=== PATIENT | female | born 1955 | race Caucasian/White ===

== ENCOUNTER 2023-11-18 09:43 | Outpatient (OUT) | payer MEDICARE, OTHER, SELFPAY ==
--- NOTE | 2023-11-18 09:53 | MR_ITS ---
[address] [address] Patient Name: DIANNA VEE MRN: [facility]:[id number] date: 1955 Sex: F Assigned Patient Location: MRI Current Patient Location: Accession/Order Number: [id number] Exam Date: 11/18/2023 10:00 Report Date: 11/19/2023 10:33 At the request of: SHELLI ALFARO Procedure: MR lumbar spine wo con EXAM: MR lumbar spine wo con CLINICAL INDICATION: Lumbar Radiculopathy M54.16 COMPARISON: CT abdomen/pelvis 05/15/2021. TECHNIQUE/PROTOCOL: Noncontrast lumbar spine MR protocol (Sagittal T1, T2, STIR and axial T1, T2 sequences). FINDINGS: Segmentation: Normal. Conus: Terminates at L1-L2. Spinal Cord and Cauda Equina: Normal. Epidural Hematoma: None. Alignment: Normal anterior to posterior alignment. Slight dextroconvex curvature with apex around L2-L3 and slight levoconvex curvature at L3-L4 could relate at least in part to patient positioning. Marrow Signal: Slight degenerative reactive marrow endplate changes at L3-L4 and L5-S1. Vertebral hemangiomas at T11 and T12. Vertebral Body Heights: Remote mild superior endplate deformities of L1 and L5 with Schmorl's nodes. Remainder of the vertebral body heights are maintained. Sacroiliac Joints: Grossly normal given only partially visualized. Paraspinal Soft Tissues: Normal. Retroperitoneal Soft Tissues: No acute abnormalities. Spondylotic Changes: Multilevel spondylotic changes include diffuse disc desiccation and varying degrees of intervertebral disc height loss, osteophytic ridging, and facet/ligamentum flavum hypertrophy. T12-L1: No disc bulge or herniation. No high-grade spinal canal or foraminal narrowing. L1-L2: No disc bulge. No high-grade spinal canal narrowing. Small right foraminal disc protrusion results in mild right foraminal narrowing. No high-grade spinal canal or left foraminal narrowing. L2-L3: Slight disc bulge indents the ventral thecal sac. No high-grade spinal canal narrowing. Mild bilateral foraminal narrowing. Mild bilateral facet/ligamentum flavum hypertrophy. L3-L4: Slight right lateral recess disc protrusion minimally indents the right ventral thecal sac. No high-grade spinal canal narrowing. Mild bilateral foraminal narrowing. Mild bilateral facet/ligamentum flavum hypertrophy. L4-L5: No disc bulge or herniation. No high-grade spinal canal narrowing. Moderate right and mild left foraminal narrowing. Mild bilateral facet/ligamentum flavum hypertrophy. L5-S1: Slight central disc protrusion indents the ventral thecal sac. No high-grade spinal canal narrowing. Moderate right and mild left foraminal narrowing. Disc material possibly contacts the transiting right S1 nerve root. Mild bilateral facet/ligamentum flavum hypertrophy. MR/MR lumbar spine wo con IMPRESSION: 1. Multilevel spondylotic changes without high-grade spinal canal or foraminal narrowing at any lumbar level. 2. Foraminal narrowing is moderate on the right at L4-L5 and L5-S1. 3. Slight central disc protrusion at L5-S1 possibly contacts the transiting right S1 nerve root. Electronically authenticated by: JANELLE REILLY Date: 11/19/2023 10:33
== END 2023-11-18 09:44 | disposition home or self-care (01) ==
LOC: MRI 09:43
PROVIDERS: PCP Family Medicine; Visit Provider Anesthesiology Pain Medicine
DX: M54.16 Radiculopathy, lumbar region (principal); M47.816 Spondylosis without myelopathy or radiculopathy, lumbar region
CPT/HCPCS: 72148

== ENCOUNTER 2024-05-04 08:25 | Outpatient (OUT) | payer MEDICARE, OTHER, SELFPAY ==
--- NOTE | 2024-05-04 08:29 | MR_ITS ---
[address] [address] Patient Name: DIANNA VEE MRN: [id number] date: 1955 Sex: F Assigned Patient Location: MRI Current Patient Location: Accession/Order Number: [id number] Exam Date: 05/04/2024 08:48 Report Date: 05/05/2024 10:54 At the request of: ZANE SIDDIQUI Procedure: MR cervical spine wo con EXAM: MR cervical spine wo con HISTORY: chronic neck pain COMPARISON: None. TECHNIQUE: Multiplanar multisequence MR imaging of the cervical spine was performed without intravenous contrast. FINDINGS: Alignment: Straightening of the normal cervical lordosis. No substantial subluxation. Vertebrae: Vertebral body heights are maintained. No marrow signal abnormality to suggest neoplasm. Spinal cord: Spinal cord demonstrates normal signal and contour. Craniocervical junction: No focal abnormality. Degenerative changes: C2-C3: Moderate left uncovertebral arthropathy. Mild left facet arthropathy. Small posterior disc osteophyte complex. Moderate canal stenosis. Mild bilateral foraminal stenosis. C3-C4: Moderate disc height loss. Small posterior disc osteophyte complex with mild to moderate (right uncovertebral arthropathy. Moderate left facet arthropathy. Moderate canal stenosis. Moderate left greater than right foraminal stenosis. C4-C5: Moderate disc height loss. Small posterior disc osteophyte complex. Moderate bilateral vertebral arthropathy. Mild facet arthropathy. Moderate canal stenosis. Moderate to advanced bilateral foraminal stenosis. C5-C6: Moderate to advanced bilateral vertebral arthropathy. Mild left facet arthropathy. Mild canal stenosis. Moderate to advanced right greater than left foraminal stenosis C6-C7: Moderate disc height loss. Posterior disc osteophyte complex. Moderate bilateral uncovertebral arthropathy. Mild to moderate canal stenosis. Moderate left and mild right foraminal stenosis. C7-T1: Small posterior disc osteophyte complex. Moderate right greater than left uncovertebral arthropathy. Mild canal stenosis. Moderate left and mild right foraminal stenosis. Visualized portion of the thoracic spine: No high grade canal stenosis. Additional Comments: The visualized soft tissues of the neck are grossly unremarkable. MR/MR cervical spine wo con IMPRESSION: 1. No abnormal spinal cord signal. 2. Moderate degenerative change of the cervical spine as described above. Electronically authenticated by: ANNA HAYES Date: 05/05/2024 10:54
--- OUTSIDE RECORDS SUMMARY | 2024-05-04 08:45 | XMS_ITS | CCD ---
Author Organization [facility] CliniSydc Care Team Providers Care Bulk Station Operator Name Role Phone Fadumo Nguyen Unavailable Rhett Poolbrandi Unavailable Abiola Pace MD Primary Care Provider [phone] Lunacarlos Varinder Unavailable Tahira Mendoza Unavailable Ciera Noguera Unavailable Lg Costa Unavailable DR ABIOLA PACE Primary Care Unavailable PAY ., DR PELAEZ Admitting Unavailable PAY ., DR PELAEZ Attending Unavailable ZIJUSTINA, DR AYLIN Valenzuela Consulting Unavailable PAY ., DR PELAEZ Consulting Unavailable Tahira Mendoza Attending Unavailable Tahira Mendoza Admitting [facility] Abiola Pace MD Primary Care Provider Abiola Paec MD Primary Care Provider [phone] DIANA BENJAMIN Attending Unavailable KATELYNN [facility] Primary [facility] Unavailable SELF, SELF Referring Unavailable DIANA BENJAMIN Attending Unavailable WONDERLY [facility] Primary Care Unavailable SELF, SELF Referring Unavailable Abiola Pace MD Unavailable Abiola Pace MD Primary Care Provider WONDERLYABIOLA Referring Unavailable WONDERLY, ABIOAL Easley Attending Unavailable WONDERLY, ABIOLA Easley Attending Unavailable WONDERLY, ABIOLA Easley Referring Unavailable WONDERLY, ABIOLA Easley Referring Unavailable WONDERLY, ABIOLA Easley Attending Unavailable WONDERLY, ABIOLA Easley Attending Unavailable WONDERLY, ABIOLA Easley Attending Unavailable NONI GARCIA Attending Unavailable MICHELLE DOHERTY Attending Unavailable PUMP, GAURI Attending Unavailable PUMP, GAURI Referring Unavailable PUMP, GAURI Attending Unavailable SERVICE, JOBST Referring Unavailable WONDERLY, ABIOLA Primary Care Unavailable NIWILBER, SESAR Bauer Attending Unavailable WONDERLY, ABIOLA Referring Unavailable WONDERLY, ABIOLA Primary Care Unavailable SERVICE, JOBST Referring Unavailable WONDERLY, ABIOLA Primary Care Unavailable SERVICE, JOBST Referring Unavailable WONDERLY, ABIOLA Primary Care Unavailable HOLMAN, LEIF E Admitting Unavailable HOLMAN, LEIF E Attending Unavailable WONDERLY, ABIOLA Referring Unavailable WONDERLY, ABIOLA Primary Care Unavailable HOLMAN, LEIF E Attending Unavailable HOLMAN, LEIF E Referring Unavailable WONDERLY, ABIOLA Primary Care Unavailable SERVICE, JOBST Referring Unavailable WONDERLY, ABIOLA Primary Care Unavailable SERVICE, JOBST Referring Unavailable WONDERLY, ABIOLA Primary Care Unavailable EDSON ROWE Attending Unavailable WONDERLY, ABIOLA Primary Care Unavailable SERVICE, JOBST Referring Unavailable WONDERLY, ABIOLA Primary Care Unavailable NIWILBER, SESAR Bauer Attending Unavailable WONDERLY, ABIOLA Referring Unavailable WONDERLY, ABIOLA Primary Care Unavailable SERVICE, JOBST Referring Unavailable WONDERLY, ABIOLA Primary Care Unavailable SERVICE, JOBST Referring Unavailable WONDERLY, ABIOLA Primary Care Unavailable SERVICE, JOBST Referring Unavailable WONDERLY, ABIOLA Primary Care Unavailable HOLMAN, LEIF E Admitting Unavailable HOLMAN, LEIF E Attending Unavailable WONDERLY, ABIOLA Referring Unavailable WONDERLY, ABIOLA Primary Care Unavailable NIENBERG, SESAR Bauer Attending Unavailable WONDERLY, ABIOLA Referring Unavailable WONDERLY, ABIOLA Primary Care Unavailable WONDERLY, ABIOLA Referring Unavailable WONDERLY, ABIOLA Primary Care Unavailable SERVICE, JOBST Referring Unavailable WONDERLY, ABIOLA Primary Care Unavailable MOISES TRACY Attending Unavailable WONDERLY, ABIOLA Referring Unavailable WONDERLY, ABIOLA Primary Care Unavailable HOLMAN, LEIF E Attending Unavailable HOLMAN, LEIF E Referring Unavailable WONDERLY, ABIOLA Primary Care Unavailable HOLMAN, LEIF E Admitting Unavailable HOLMAN, LEIF E Attending Unavailable WONDERLY, ABIOLA Referring Unavailable WONDERLY, ABIOLA Primary Care Unavailable NIWILBER, SESAR Bauer Attending Unavailable WONDERLY, ABIOLA Referring Unavailable WONDERLY, ABIOLA Primary Care Unavailable SERVICE, JOBST Referring Unavailable WONDERLY, ABIOLA Primary Care Unavailable SERVICE, JOBST Referring Unavailable WONDERLY, ABIOLA Primary Care Unavailable HOLMAN, LEIF E Admitting Unavailable HOLMAN, LEIF E Attending Unavailable WONDERLY, ABIOLA Referring Unavailable WONDERLY, ABIOLA Primary Care Unavailable HOLMAN, LEIF E Attending Unavailable HOLMAN, LEIF E Referring Unavailable WONDERLY, ABIOLA Primary Care Unavailable FABIENNE SOUZA Attending Unavailable WONDERLY, ABIOAL Primary Care Unavailable SERVICE, JOBST Referring Unavailable WONDERLY, ABIOLA Primary Care Unavailable HOLMAN, LEIF E Attending Unavailable HOLMAN, LEIF E Referring Unavailable WONDERLY, ABIOLA Primary Care Unavailable HOLMAN, LEIF E Attending Unavailable HOLMAN, LEIF E Referring Unavailable WONDERLY, ABIOLA Primary Care Unavailable ABIGAIL LOPEZ Attending Unavailable WONDERLY, ABIOLA Primary Care Unavailable SERVICE, JOBST Referring Unavailable WONDERLY, ABIOLA Primary Care Unavailable NIENBERG, SESAR S Attending Unavailable WONDERLY, ABIOLA Referring Unavailable WONDERLY, ABIOLA Primary Care Unavailable NIENBERG, SESAR S Attending Unavailable WONDERLY, ABIOLA Referring Unavailable WONDERLY, ABIOLA Primary Care Unavailable SERVICE, JOBST Referring Unavailable WONDERLY, ABIOLA Primary Care Unavailable SERVICE, JOBST Referring Unavailable WONDERLY, ABIOLA Primary Care Unavailable HOLMAN, LEIF E Admitting Unavailable HOLMAN, LEIF E Attending Unavailable WONDERLY, ABIOLA Referring Unavailable WONDERLY, ABIOLA Primary Care Unavailable HOLMAN, LEIF E Attending Unavailable HOLMAN, LEIF E Referring Unavailable WONDERLY, ABIOLA Primary Care Unavailable ERNESTO VIDALES Attending Unavail able WONDERLY, ABIOLA Primary Care Unavailable SERVICE, JOBST Referring Unavailable WONDERLY, ABIOLA Primary Care Unavailable HOLMAN, LEIF E Attending Unavailable HOLMAN, LEIF E Referring Unavailable WONDERLY, ABIOLA Primary Care Unavailable HOLMAN, LEIF E Admitting Unavailable HOLMAN, LEIF E Attending Unavailable WONDERLY, ABIOLA Referring Unavailable WONDERLY, ABIOLA Primary Care Unavailable SERVICE, JOBST Referring Unavailable WONDERLY, ABIOLA Primary Care Unavailable NIENBERG, SESAR S Attending Unavailable WONDERLY, ABIOLA Referring Unavailable WONDERLY, ABIOLA Primary Care Unavailable PUMP, GAURI L Referring Unavailable WONDERLY, ABIOLA Primary Care Unavailable Allergies Allergy Classification Reported Allergen(s) Allergy Type Date of Onset Reaction(s) Facility (14 sources) Acetaminophen / HYDROcodone Drug Allergy Unknown [facility] Other (14 sources) atorvastatin Drug Allergy Unknown [facility] Other (20 sources) Cephalexin; Translations: [CEPHALEXIN] Drug Allergy 10-14-19 14 rash, Hives [facility] Other (20 sources) colesevelam; Translations: [COLESEVELAM] [facility]-28-19 [facility] D[facility] Drug Allergy Unknown [facility] Other (20 sources) Etodolac; Translations: [ETODOLAC] Drug Allergy 10-23-19 17 Other: See Comments [facility] (7 sources) ezetimibe Drug Allergy myalgias [facility] Other (20 sources) Furosemide; Translations: [FUROSEMIDE] Drug Allergy 04-03-20 19 Itching [facility] (20 sources) gabapentin; Translations: [GABAPENTIN] Drug Allergy 10-14-19 14 Other: See Comments, Shortness Of Breath, Dyspnea [facility] (18 sources) Hmg-Coa Reductase Inhibitors (Statins) Propensity to adverse reactions 01-09-20 21 Muscle Rigidity, Other [facility] Other (20 sources) HYDROcodone; Translations: [HYDROCODONE BITARTRATE] Drug Allergy 10-14-19 14 Other: See Comments [facility] (20 sources) HYLAN G-F 20; Translations: [HYLAN G-F 20] Drug Allergy 10-28-19 23 reaction [facility] [employer] Other (20 sources) PARoxetine; Translations: [PAROXETINE] Drug Allergy 10-28-19 23 Unknown [facility] [employer] Other (14 sources) Penicillin Drug Allergy rash [facility] [employer] Other (18 sources) Penicillin V Drug Allergy 10-28-19 23 red all over [facility] [facility] [employer] Other (20 sources) Ramipril; Translations: [RAMIPRIL] Drug Allergy 10-28-19 23 myalgias [facility] [employer] Other (17 sources) Sulfamethoxazole Drug Allergy 10-28-19 23 Unknown [facility] Other (14 sources) Sulfonamides (Antibiotic) Propensity to adverse reactions Unknown [facility] [employer] Other (20 sources) topiramate; Translations: [TOPIRAMATE] Drug Allergy 10-14-19 14 Other: See Comments, Shortness Of Breath [facility] (20 sources) traMADol; Translations: [TRAMADOL] Drug Allergy 06-21-20 19 Mental Status Change [facility] Work Phone: (14 sources) Ranitidine Acid Guideman Drug allergy headache [facility] [employer] Other (14 sources) Cephalexin; Translations: [Keflex] Drug Allergy rash [facility] Repository (19 sources) Cephalexin; Translations: [CEPHALEXIN MONOHYDRATE] Drug Allergy 10-14-19 14 Other: See Comments, [facility] (19 sources) Grass pollen; Translations: [GRASS POLLEN] Drug Allergy 03-05-20 18 Other: See Comments [facility] (19 sources) Latex; Translations: [LATEX] Drug Allergy 02-09-20 18 Other: See Comments [facility] (20 sources) Mold Extract; Translations: [MOLD] Drug Allergy 12-16-19 14 Itching [facility] (19 sources) Penicillins; Translations: [PENICILLINS] Propensity to adverse reactions to drug 10-14-19 14 Other: See Inocente, [facility] (19 sources) Ragweed pollen; Translations: [RAGWEED POLLEN] Drug Allergy 03-05-20 Other: See Comments [facility] (20 sources) Sulfonamides (Antibiotic); Translations: [SULFA (SULFONAMIDE ANTIBIOTICS)] Propensity to adverse reactions to drug 10-14-19 14 Unknown [facility] (20 sources) Cat Dander; Translations: [CAT DANDER] Drug Allergy 10-28-19 17 Swelling [facility] (2 sources) colesevelam Drug Allergy [facility] Other (2 sources) black walnut pollen extract; Translations: [HTMXIEH-BBY-LEO REDUCTASE INHIBITORS] Drug Allergy 01-09-20 21 [facility] Repository (1 source) Etodolac Drug Allergy [facility] (1 source) levocetirizine Drug Allergy [facility] (1 source) Penicillin Drug Allergy [facility] Rep[facility] (1 source) Sulfonamides (Antibiotic) Drug allergy (disorder) [facility] Rep[facility] (1 source) traMADol Drug Allergy [facility] Repository (17 sources) HMG-CoA reductase inhibitor Propensity to adverse reactions to drug 01-09-20 muscle cramps [facility] (20 sources) levocetirizine; Translations: [LEVOCETIRIZINE] Drug Allergy 01-09-20 21 [facility] (20 sources) Penicillin G; Translations: [PENICILLIN G] Drug Allergy 11-05-[address] [facility] (20 sources) Pravastatin; Translations: [PRAVASTATIN] Drug Allergy 10-23-19 17 [facility] (19 sources) Acetaminophen / HYDROcodone; Translations: [HYDROCODONE-ACETAM INOPHEN] Drug Allergy 06-03-20 21 GI Disturbance, GI intolerance [facility] (19 sources) DULoxetine; Translations: [DULOXETINE HCL] Drug Allergy 10-28-19 [facility] (18 sources) raNITIdine; Translations: [RANITIDINE HCL] Drug Allergy 10-28-19 23 [facility] (4 sources) atorvastatin Drug Allergy 10-28-19 23 [facility] (1 source) Cat Hair Extract Drug Allergy 10-28-19 17 Swelling [facility] (4 sources) Codeine Drug Allergy 12-16-19 14 [facility] (4 sources) colesevelam Drug Allergy 10-28-19 23 [facility] (4 sources) Etodolac Propensity to adverse reactions to drug 11-05-19 14 [facility] (4 sources) Furosemide Drug Allergy 04-03-20 19 Itching [facility] (4 sources) Grass pollen Propensity to adverse reactions to drug 03-05-20 18 [facility] (4 sources) House dust mite Propensity to adverse reactions to drug 12-16-19 14 [facility] (4 sources) HYDROcodone Drug Allergy 10-14-19 14 [facility] (4 sources) Iodine Drug Allergy 11-07-19 14 [facility] (4 sources) Latex Propensity to adverse reactions to drug 02-09-20 18 [facility] (1 source) Penicillins Propensity to adverse reactions to drug 10-14-19 14 [facility] (4 sources) Ramipril Propensity to adverse reactions to drug 10-28-19 23 [facility] (1 source) raNITIdine Drug Allergy 10-28-19 23 [facility] (4 sources) Topiramate Propensity to adverse reactions to drug 10-14-19 14 Dyspnea [facility] (4 sources) Hylan G-F 20 Propensity to adverse reactions to drug 10-28-19 23 [facility] (3 sources) short ragweed pollen extract Drug Allergy 03-05-20 18 Other [facility] (3 sources) Cat Hair Extract Propensity to adverse reactions 10-28-19 17 Swelling [facility] Medications Current Medications Medication Drug Class(es) Dates Sig (Normalized) Sig (Original) acetaminophen 325 mg oral tablet (4 sources) Start: 07-23-2021 take 2 tablets by mouth every six hours as needed for pain acetaminophen (Tylenol) 325 MG tablet 2 tablets Orally every 6 hrs prn pain 07/23/2021 Active Comment on above: Take 2 tablets by [facility] every 6 hours as needed for pain. [id number] 200 actuat albuterol 0.09 mg/actuat metered dose inhaler (11 sources) beta2-Adrenergic Agonist Start: 08-22-2015 End: 04-28-2024 take 2 puff(s) by inhalation every four hours as needed for cough albuterol HFA 90 mcg/act inhaler 2 puffs as needed Inhalation every 4 hrs prn cough, wheeze,shortness of breath for 30 days 08/22/2015 04/28/2024 Discontinued (Med list cleanup) take 2 puff(s) by in halation every four hours as needed ProAir HFA 108 (90 Base) MCG/ACT 2 puffs as needed Inhalation every 4 hrs for 90 day(s) Active ALBUTEROL INHALA TION Inhale as instructed. 0 Active Comment on above: Inhale as instructed . Hilary Allergy 180 MG (14 sources) take 1 tablet by mouth once daily as needed Hilary Allergy 180 MG 1 tablet as needed Orally Once a day Active azelastine hydrochloride 0.137 mg/actuat metered dose nasal spray (3 sources) Histamine-1 Receptor Antagonist Start: 023 Azelastine HCl 137 MCG/SPRAY solution 02/25/2023 Active cholecalciferol 0.05 mg oral capsule (20 sources) Vitamin D Start: 024 take 1 capsule by mouth in the morning cholecalciferol (Vitamin D-3) 50 MCG (1999 UT) capsule Take 1 capsule (50 mcg) by mouth in the morning and 1 capsule (50 mcg) before bedtime. 30 capsule 08/11/2023 Active cholecalciferol, vitamin D3, 2,000 units capsule Take 3,000 Units by mouth daily. Active cholecalciferol (D2000 Ultra Strength) 50 MCG (2000 UT) capsule Take 3,000 Units by mouth daily. Active Cholecalciferol, Vitamin D3, (VITAMIN D-3) 2,000 unit cap Indications: History of DVT (deep vein thrombosis) Take by mouth. 0 Active Comment on above: Take by mouth. cimetidine 200 mg oral tablet (4 sources) Histamine-2 Receptor Antagonist Start: 4 End: 4 take 1 tablet by mouth once daily cimetidine 200 MG tablet Take 1 tablet by mouth daily. 08/12/2023 11/10/2023 Active CPAP Machine (14 sources) CPAP Machine Active docosahexaenoic acid 120 mg / eicosapentaenoic acid 180 mg oral capsule (4 sources) omega-3 (fish oi l) 1000 MG capsule 1 capsule 1 (one) time each day at the same time. Active [place]-3 Fatty Ac ids (Fish Oil) 1000 MG capsule 1 capsule. Active docusate sodium 100 mg oral capsule (10 sources) Start: 10-20-2023 take 1 capsule by mouth in the morning, then take 1 capsule by mouth at bedtime docusate sodium (COLACE) 100 mg capsule Take 1 capsule (100 mg total) by mouth in the morning and 1 capsule (100 mg total) before bedtime. 10/20/2023 Active take 1 capsule by mouth once yash ly docusate sodium (Colace) 100 MG capsule Take 100 mg by mouth Daily Active escitalopram 10 mg oral tablet (20 sources) Serotonin Reuptake Inhibitor Start: 07-22-2023 take 1 tablet by mouth in the morning escitalopram (Lexapro) 10 MG tablet Indications: Episode of recurrent major depressive disorder, unspecified depression episode severity (CMS/HCC) Take 1 tablet (10 mg) by mouth in the morning. 90 tablet 3 07/22/2023 Active take 1 tablet by mouth in the mo rning escitalopram (LEXAPRO) 20 mg tablet Take 1 tablet (20 mg total) by mouth in the morning. 0 Active ESCITALOPRAM OXA LATE (LEXAPRO ORAL) Take by mouth. 0 Active Comment on above: Take by mouth. 1 ml evolocumab 140 mg/ml auto-injector (9 sources) PCSK9 Inhibitor Start: 01-04-2024 evolocumab (REPATHA ELENA) 140 mg/mL pen injector Indications: ASCVD (arteriosclerotic cardiovascular disease) Inject 140 mg under the skin every 14 (fourteen) days. 2 mL 11 01/04/2024 Active Start: 01-04-2024 End: 04-28-2024 atha CarolynClick 140 MG/ML injection 140 mg 01/04/2024 04/28/2024 Discontinued (Allergic response) ezetimibe 10 mg oral tablet (14 sources) Dietary Cholesterol Absorption Inhibitor take 1 tablet by mouth every twenty-four hours Zetia 10 MG 1 tablet Orally Once a day Active Zetia Active hydroCHLOROthiazide 12.5 mg oral tablet (20 sources) Thiazide Diuretic Start: 07-22-2023 take 1 tablet by mouth once daily hydroCHLOROthiazide 12.5 MG tablet Take 1 tablet by mouth daily. 07/22/2023 Active take 1 tablet by eleanor th every twenty-four hours hydroCHLOROthiazide 25 mg 1 tablet in th e morning Orally Once a day Active Comment on above: Take 12.5 mg by mout h. lansoprazole 30 mg delayed release oral capsule (20 sources) Proton Pump Inhibitor Start: 08-12-19 take 1 capsule by mouth once daily as needed lansoprazole (PREVACID) 30 mg capsule Take 1 capsule (30 mg total) by mouth daily as needed. 08/12/2016 Active Comment on above: Take by mouth. latanoprost 0.05 mg/ml ophthalmic solution (20 sources) Prostaglandin Analog take 1 drop(s) into the eye(s) once daily latanoprost (XALATAN) 0.005 % ophthalmic solution Administer 1 drop to both eyes nightly. Active take 1 drop(s) into the eye(s) at bedtime latanoprost (Xalatan) 0.005 % ophthalmic solution 1 drop at bedtime. Active take 1 drop(s) into the eye(s) once daily in the evening Latanoprost 0.005 % 1 drop into affected eye in the evening Ophthalmic Once a day Active 3 ml liraglutide 6 mg/ml pen injector (1 source) GLP-1 Receptor Agonist Victoza 1 8 MG/3ML Week one- 0.6mg, Week two- 1.2mg, Week three thereafter- 1.8mg Subcutaneous Daily for 30 days Active MiraLax 17 GM/SCOOP (4 sources) take 17 g by mouth once daily MiraLax 17 GM/SCOOP as directed Orally Once a day Active montelukast 10 mg oral tablet (20 sources) Leukotriene Receptor Antagonist take 1 tablet by mouth once daily montelukast (SINGULAIR) 10 mg tablet Take 1 tablet (10 mg total) by mouth nightly. Active Montelukast Sodi um Active Comment on above: Take 10 mg by mouth daily at bedtime. mupirocin 0.02 mg/mg topical ointment (3 sources) RNA Synthetase Inhibitor Antibacterial Start: 07-04-19 End: 04-28-20 24 mupirocin (Bactroban) 2 % ointment 1 application every 12 (twelve) hours. 07/04/2021 04/28/2024 Discontinued (Med list cleanup) olopatadine 1 mg/ml ophthalmic solution (20 sources) Histamine-1 Receptor Inhibitor take 1 drop(s) into the eye(s) in the morning olopatadine (PATANOL) 0.1 % ophthalmic solution 1 drop in the morning. Active take 1 drop(s) into the eye(s) once daily as needed olopatadine (Patanol) 0.1 % ophthalmic solution 1 drop into affected eye Ophthalmic once a day prn Active Patanol Active Comment on above: 1 Drop as needed. [place] 3 1000 MG (11 sources) take 1 capsule by mouth once daily [place] 3 1000 MG 1 capsule Orally Once a day Active omega-3s/dha/epa/fish oil (OMEGA 3 ORAL) (17 sources) omega-3s/dha/epa /fish oil (OMEGA 3 ORAL) Take by mouth daily. Active omega-3s/dha/epa /fish oil (OMEGA 3 ORAL) Take by mouth daily. 0 Suspended omega-3s/dha/epa /fish oil (OMEGA 3 ORAL) Take by mouth daily. 0 Active Oral Electrolytes (SUSTAIN PO) (3 sources) Oral Electrolyte s (SUSTAIN PO) 1 (one) time each day at the same time. Active polyethylene glycol 3350 09693 mg powder for oral solution (9 sources) Osmotic Laxative polyethylene gl ycol (GLYCOLAX) 17 gram packet Take 17 g by mouth in the morning. Active polymyxin b 75667 unt/ml / trimethoprim 1 mg/ml ophthalmic solution (3 sources) Dihydrofolate Reductase Inhibitor Antibacterial, Polymyxin-class Antibacterial End: 04-28-20 take 1 drop(s) into the eye(s) every four hours trimethoprim-polymyx in b (Polytrim) ophthalmic solution Administer 1 drop into the left eye every 4 (four) hours 04/28/2024 Discontinued (Med list cleanup) predniSONE 10 mg oral tablet (5 sources) Start: 04-28-20 End: 05-10-20 take 4 tablets by mouth once daily, then take 3 tablets by mouth once daily, then take 2 tablets by mouth once daily, then take 1 tablet by mouth once daily predniSONE (Deltasone) 10 MG tablet Indications: Spondylosis of cervical spine , Chronic pain of both shoulders Take 4 tablets (40 mg) by mouth Daily for 3 days, THEN 3 tablets (30 mg) Daily for 3 days, THEN 2 tablets (20 mg) Daily for 3 days, THEN 1 tablet (10 mg) Daily for 3 days. 30 tablet 04/28/2024 05/10/2024 Active Start: 08-18-2022 Prednisone 20m g 2 daily for 5 days oral Daily for 5 days Jul, Active ProAir HFA 108 (90 Base) MCG/ACT (7 sources) take 2 puff(s) by inhalation every four hours as needed ProAir HFA 108 (90 Base) MCG/ACT 2 puffs as needed Inhalation every 4 hrs for 90 day(s) Active propylene glycol 6 mg/ml ophthalmic solution (19 sources) propylene glycoL 0.6 % drops Instill to eye. Active propylene glycol (SYSTANE BALANCE) 0.6 % drop Use 1 Drop in the right eye. 0 Active Comment on above: Use 1 Drop in the ri ght eye. propylene glycol/peg 400/PF (SYSTANE, PF, OPHT) (16 sources) propylene glycol /peg 400/PF (SYSTANE, PF, OPHT) Instill to eye. Active propylene glycol /peg 400/PF (SYSTANE, PF, OPHT) Instill to eye. 0 Suspended propylene glycol /peg 400/PF (SYSTANE, PF, OPHT) Instill to eye. 0 Active Refresh 1 % (3 sources) Refresh 1 % 1 dr op into affected eye as needed Ophthalmic 24 time(s) a day Active Refresh 1 % 1 dr op into affected eye as needed Ophthalmic 24 time(s) a day Not-Taking Sulfamethazine (11 sources) Sustain Active 60 actuat tiotropium 0.39186 mg/actuat inhalation spray (20 sources) Anticholinergic Start: 10-13-2016 take 1.25 ug by mouth once daily in the morning SPIRIVA RESPIMAT 1.25 mcg/actuation mist INHALE 2 PUFFS BY MOUTH ONCE A DAY in the morning 5 10/13/2016 Active Start: 09-23-2016 take 1.25 ug by inha lation once daily Spiriva Respimat 1.25 MCG/ACT 2 puffs Inhalation Once a day Sep, Active tiotropium (Spir nerissa Respimat) 1.25 MCG/ACT inhaler 1 (one) time each day at the same time. Active tiotropium bromi de (SPIRIVA RESPIMAT) 1.25 mcg/actuation mist Inhale 1.25 mcg as instructed. 0 Active Comment on above: Inhale 1.25 mcg as i nstructed. triamcinolone acetonide 0.055 mg/actuat metered dose nasal spray (20 sources) Corticosteroid take 2 spray(s) nasal route once daily triamcinolone (NASACORT) 55 mcg nasal inhaler Administer 2 sprays into each nostril nightly. Active triamcinolone (N asacort Allergy 24HR) 55 MCG/ACT nasal inhaler 1 (one) time each day at the same time. Active take 1 puff(s) nasal route once daily Nasacort AQ 55 MCG/ACT 1 puff in each nostril Nasally Once a day Active TRIAMCINOLONE AC ETONIDE (NASACORT NASAL) Use in the nose. 0 Active Comment on above: Use in the nose. Vitamin D3 25 MCG (1000 UT) (11 sources) take 1 tablet by mouth once daily Vitamin D3 25 MCG (1000 UT) 1 tablet Orally Once a day Active warfarin sodium 5 mg oral tablet (20 sources) Vitamin K Antagonist Start: 2 End: 4 take 1 tablet by mouth in the evening warfarin (COUMADIN) 5 mg tablet Indications: group home (current) use of anticoagulants , Pulmonary embolism, unspecified chronicity, unspecified pulmonary embolism type, unspecified whether acute cor pulmonale present ([facility]) Take 1 tablet (5 mg total) by mouth in the evening. As directed by Katerina SCHNEIDER (Medication Therapy Management).. 90 tablet 1 04/27/2024 Active Coumadin Not-Bib ing Completed/Discontinued Medications Medication Drug Class(es) Dates Sig (Normalized) Sig (Original) 0.5 ML semaglutide 0.5 MG/ML Auto-Injector [Wegovy] (7 sources) Start: 04-30-2022 Wegovy 0.25 MG/0.5ML 0.25mg once weekly for four weeks, then increase to 0.5mg once weekly for four weeks Subcutaneous once weekly for 28 days Checking to see if medication is covered under pt's insurance (aware it is unavailable at this time) Apr, Not-Taking Start: 04-30-2022 Wegovy 0.25 MG /0.5ML 0.25mg once weekly for four weeks, then increase to 0.5mg once weekly for four weeks Subcutaneous once weekly for 28 days Checking to see if medication is covered under pt's insurance (aware it is unavailable at this time) Apr, Active Adhesive Tape ([employer]) 3 X 10 -yard tape (1 source) Start: 08-06-2021 Adhesive Tape ([employer]) 3 X 10 -yard tape Apply 1 application to affected area as needed. 2 Each 0 08/06/2021 Active Comment on above: Apply 1 application to affected area as needed. Gauze Bandage (CURITY GAUZE) 4 X 4 spge (1 source) Start: 08-06-2021 Gauze Bandage (CURITY GAUZE) 4 X 4 spge Apply 1 application to affected area as needed. Change wound packing daily and soak with normal saline 50 Each 1 08/06/2021 Active Comment on above: Apply 1 application to affected area as needed. Change wound packing daily and soak with normal saline Lutein (2 sources) LUTEIN ORAL Take by mouth. 0 Active take 1 capsule by mo uth every twenty-four hours Lutein 6 MG 1 capsule with a meal Orally Once a day Not-Taking Comment on above: Take by mouth. omega-3 acid ethyl esters (fdc) 1000 mg oral capsule (2 sources) take 1 capsule by mo uth twice daily omega-3 acid ethyl esters 1 gram capsule Take 2 g by mouth twice daily. 0 Active take 2 capsules by m outh every twelve hours Lovaza 1 GM 2 capsules Orally Twice a da y Not-Taking Comment on above: Take 2 g by mouth tw ice daily. Problems Active Problems Problem Classification Problem Date Documented Date Episodic/Chronic Abdominal pain (2 sources) Flank pain; Translations: [Unspecified abdominal pain] 04-28-2024 Episodic Asthma (20 sources) Mild intermittent asthma; Translations: [Mild intermittent asthma, uncomplicated] Onset: 2 Resolved: 2 Chronic Coagulation and hemorrhagic disorders (3 sources) Hypercoagulability state; Translations: [Other primary thrombophilia] Onset: 4 07-21-2023 Chronic Coronary atherosclerosis and other heart disease (20 sources) Arteriosclerotic vascular disease; Translations: [Atherosclerotic heart disease of [place] coronary artery without angina pectoris] Onset: 3 10-16-2022 Chronic Disorders of lipid metabolism (20 sources) Hyperlipidemia; Translations: [Hyperlipidemia, unspecified] Onset: 2 Resolved: 2 Chronic Diverticulosis and diverticulitis (8 sources) Diverticular disease; Translations: [Diverticulosis of intestine, part unspecified, without perforation or abscess without bleeding] Onset: 5 05-04-2023 Chronic Esophageal disorders (20 sources) Gastro-esophageal reflux disease with esophagitis; Translations: [Gastro-esophageal reflux disease with esophagitis] Onset: 2 Resolved: 2 07-09-2021 Chronic Essential hypertension (20 sources) Essential hypertension; Translations: [Essential (primary) hypertension] Onset: 1 Resolved: 2 Chronic Mood disorders (18 sources) Depressive disorder; Translations: [Major depressive disorder, single episode, unspecified] Onset: 2 Resolved: 2 Chronic Nonspecific chest pain (3 sources) Chest pain; Translations: [Chest pain, unspecified] Onset: 4 04-28-2024 Episodic Nutritional deficiencies (8 sources) Vitamin D deficiency; Translations: [Vitamin D deficiency, unspecified] Onset: 3 10-27-2022 Chronic Osteoarthritis (20 sources) Osteoarthritis of knee; Translations: [Osteoarthritis of knee, unspecified] Onset: 5 Resolved: 2 Chronic Osteoporosis (10 sources) Senile osteoporosis; Translations: [Age-related osteoporosis without current pathological fracture] Onset: 4 11-18-2023 Chronic Other aftercare (1 source) Other alf (current) drug therapy; Translations: [OTH GROUP HOME CURRENT DRUG THERAPY] Onset: 3 Episodic Other and ill-defined heart disease (10 sources) Heart disease; Translations: [Heart disease, unspecified] Chronic Other and ill-defined heart disease (2 sources) Heart disease, unspecified Onset: 2 Resolved: 2 Chronic Other connective tissue disease (1 source) Presence of right artificial knee joint; Translations: [PRESENCE RT ARTIFICIAL KNEE JOINT] Onset: 3 Chronic Other eye disorders (1 source) Unspecified optic atrophy Chronic Other fractures (5 sources) Closed fracture of lumbar vertebra without spinal cord injury; Translations: [Wedge compression fracture of first lumbar vertebra, initial encounter for closed fracture] Episodic Other liver diseases (8 sources) Steatosis of liver; Translations: [Fatty (change of) liver, not elsewhere classified] Onset: 3 10-27-2022 Chronic Other liver diseases (8 sources) Liver cyst; Translations: [Other specified diseases of liver] Onset: 3 10-27-2022 Chronic Other nervous system disorders (8 sources) Difficulty walking; Translations: [Difficulty in walking, not elsewhere classified] Onset: 3 10-27-2022 Chronic Other nervous system disorders (8 sources) Chronic pain; Translations: [Other chronic pain] Onset: 3 10-27-2022 Chronic Other nervous system disorders (9 sources) Mononeuropathy of lower limb; Translations: [Other specified mononeuropathies of bilateral lower limbs] Onset: 4 03-11-2024 Chronic Other nervous system disorders (1 source) Other specified mononeuropathies of bilateral lower limbs; Translations: [Other specified mononeuropathies of bilateral lower limbs] Onset: 4 Chronic Other non-traumatic joint disorders (4 sources) Pain in left knee; Translations: [PAIN IN LEFT KNEE] Onset: 3 Episodic Other non-traumatic joint disorders (4 sources) Bilateral chronic pain of upper limbs; Translations: [Pain in right shoulder] Onset: 4 04-28-2024 Episodic Other non-traumatic joint disorders (1 source) Shoulder pain Onset: 4 Episodic Other nutritional; endocrine; and metabolic disorders (13 sources) Morbid obesity; Translations: [Morbid (severe) obesity due to excess calories] Onset: 8 03-29-2018 Chronic Other nutritional; endocrine; and metabolic disorders (20 sources) Body mass index 40+ - severely obese; Translations: [Body mass index (BMI) 50.0-59.9, adult] Onset: 9 Chronic Other nutritional; endocrine; and metabolic disorders (16 sources) Extreme obesity with alveolar hypoventilation; Translations: [Morbid (severe) obesity with alveolar hypoventilation] Onset: 3 10-27-2022 Chronic Other nutritional; endocrine; and metabolic disorders (3 sources) Morbid (severe) obesity with alveolar hypoventilation Onset: 2 Resolved: 2 Chronic Other nutritional; endocrine; and metabolic disorders (15 sources) Obesity; Translations: [Obesity, unspecified] Chronic Other nutritional; endocrine; and metabolic disorders (5 sources) Obesity, unspecified; Translations: [OBESITY UNSPECIFIED] Onset: 3 Chronic Other nutritional; endocrine; and metabolic disorders (6 sources) Body mass index (BMI) 50.0-59.9, adult; Translations: [BODY MASS INDEX BMI 50.0-59.9 ADULT] Onset: 3 Chronic Other nutritional; endocrine; and metabolic disorders (7 sources) Metabolic syndrome X; Translations: [Metabolic syndrome] Chronic Other nutritional; endocrine; and metabolic disorders (2 sources) Metabolic syndrome Chronic Other nutritional; endocrine; and metabolic disorders (3 sources) Morbid (severe) obesity due to excess calories; Translations: [Morbid (severe) obesity due to excess calories] Onset: 4 Chronic Other screening for suspected conditions (not mental disorders or infectious disease) (20 sources) Endometrium thickened; Translations: [Abnormal findings on diagnostic imaging of other specified body structures] Onset: 7 03-29-2018 Chronic Other upper respiratory disease (5 sources) Rhinitis; Translations: [Chronic rhinitis] Chronic Other upper respiratory disease (8 sources) Allergic rhinitis; Translations: [Allergic rhinitis, unspecified] Onset: 3 10-27-2022 Chronic Peripheral and visceral atherosclerosis (20 sources) Peripheral vascular disease, unspecified; Translations: [Peripheral vascular disease, unspecified] Onset: 3 10-16-2022 Chronic Pulmonary heart disease (1 source) Chronic pulmonary embolism; Translations: [Chronic pulmonary embolism] Onset: 3 Chronic Residual codes; unclassified (20 sources) Obstructive sleep apnea syndrome; Translations: [Obstructive sleep apnea (adult) (pediatric)] Onset: 2 07-23-2021 Chronic Residual codes; unclassified (6 sources) Obstructive sleep apnea (adult) (pediatric) Onset: 2 Resolved: 2 Chronic Residual codes; unclassified (3 sources) Hypersomnia; Translations: [Hypersomnia, unspecified] Onset: 3 10-27-2022 Chronic Spondylosis; intervertebral disc disorders; other back problems (20 sources) Degeneration of lumbar intervertebral disc; Translations: [Other intervertebral disc degeneration, lumbar region] Onset: 8 03-29-2018 Chronic Thyroid disorders (9 sources) Thyroid nodule; Translations: [Nontoxic single thyroid nodule] Onset: 8 03-29-2018 Chronic Unclassified (1 source) Injection Onset: 4 Unclassified (1 source) Spinal stenosis of lumbar region with neurogenic claudication [M48.062] Onset: 4 Past or Other Problems Problem Classification Problem Date Documented Da te Episodic/Chronic Abdominal hernia (20 sources) Umbilical hernia without obstruction or gangrene; Translations: [Recurrent hernia of anterior abdominal wall] Onset: 04-24-2019 Resolved: 05-15-2021 Episodic Bacterial infection; unspecified site (8 sources) Rheumatic fever; Translations: [Rheumatic fever without heart involvement] Onset: 10-27-2022 10-27-2022 Episodic Benign neoplasm of uterus (20 sources) Uterine leiomyoma; Translations: [Leiomyoma of uterus, unspecified] Onset: 01-19-2017 03-29-2018 Episodic Complications of surgical procedures or medical care (1 source) Post-operative wound cellulitis; Translations: [Infection following a procedure, other surgical site, initial encounter] Onset: 07-23-2021 07-23-2021 Episodic Diabetes mellitus without complication (20 sources) Impaired glucose tolerance; Translations: [Impaired glucose tolerance (oral)] Onset: 03-10-2022 Resolved: 03-10-2022 Episodic Malaise and fatigue (20 sources) Fatigue; Translations: [Other fatigue] Onset: 01-08-2021 Resolved: 03-10-2022 Episodic Mood disorders (3 sources) Mood disorders Onset: 11-17-2023 11-17-2023 Other aftercare (20 sources) Long-term current use of anticoagulant; Translations: [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] Onset: 08-21-2015 07-02-2023 Episodic Other aftercare (1 source) Drug therapy finding; Translations: [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] Onset: 07-23-2021 07-23-2021 Episodic Other aftercare (2 sources) group home (current) use of anticoagulants; Translations: [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 CARE TEAM COACH CURRNT USE ANTICOAGULANTS] Onset: 10-13-2022 Episodic Other bone disease and musculoskeletal deformities (8 sources) Osteopenia; Translations: [Other specified disorders of bone density and structure, unspecified site] Onset: 10-27-2022 10-27-2022 Episodic Other eye disorders (8 sources) Tear film insufficiency; Translations: [Dry eye syndrome of unspecified lacrimal gland] Onset: 10-27-2022 10-27-2022 Episodic Other female genital disorders (3 sources) Vaginal bleeding; Translations: [Abnormal uterine and vaginal bleeding, unspecified] Onset: 10-27-2022 Resolved: 11-11-2022 11-11-2022 Chronic Other fractures (3 sources) Closed fracture lumbar vertebra, wedge ; Translations: [Wedge compression fracture of first lumbar vertebra, initial encounter for closed fracture] Onset: 10-27-2022 Resolved: 2024 2024 Episodic Other gastrointestinal disorders (4 sources) Constipation; Translations: [Constipation, unspecified] Onset: 10-27-2022 10-27-2022 Episodic Other lower respiratory disease (8 sources) Restrictive lung disease; Translations: [Other disorders of lung] Onset: 05-08-2023 05-08-2023 Episodic Other lower respiratory disease (8 sources) Dyspnea on exertion; Translations: [Other forms of dyspnea] Onset: 10-27-2022 10-27-2022 Episodic Other lower respiratory disease (1 source) Disorder of lung; Translations: [Other disorders of lung] Onset: 07-19-2021 07-19-2021 Episodic Other lower respiratory disease (19 sources) Dyspnea; Translations: [Shortness of breath] Onset: 01-08-2021 10-16-2022 Episodic Other lower respiratory disease (3 sources) Nodule of lung; Translations: [Solitary pulmonary nodule] Onset: 01-10-2020 05-04-2023 Episodic Other lower respiratory disease (1 source) Shortness of breath; Translations: [Shortness of breath] Onset: 10-16-2022 Episodic Other nutritional; endocrine; and metabolic disorders (17 sources) Severe obesity; Translations: [Morbid (severe) obesity due to excess calories] Onset: 01-08-2021 Resolved: 10-16-2022 10-16-2022 Chronic Other screening for suspected conditions (not mental disorders or infectious disease) (4 sources) Cardiovascular stress test abnormal; Translations: [Abnormal result of other cardiovascular function study] Onset: 07-09-2021 07-09-2021 Episodic Phlebitis; thrombophlebitis and thromboembolism (9 sources) Deep venous thrombosis of lower extremity; Translations: [Acute embolism and thrombosis of unspecified deep veins of unspecified lower extremity] Onset: 10-27-2022 06-01-2019 Episodic Pulmonary heart disease (20 sources) Pulmonary thromboembolism; Translations: [Other pulmonary embolism without acute cor pulmonale] Onset: 06-24-2019 Episodic Residual codes; unclassified (1 source) Postoperative state; Translations: [Other specified postprocedural states] Onset: 06-23-2019 06-24-2019 Episodic Spondylosis; intervertebral disc disorders; other back problems (20 sources) Low back pain; Translations: [Low back pain] Onset: 05-18-2018 Resolved: 01-19-2024 09-07-2018 Episodic Unclassified (10 sources) Low back pain of over 3 months duration; Translations: [Low back pain of over 3 months duration] Unclassified (2 sources) Low back pain of over 3 months duration M54.50 Onset: 03-10-2022 Resolved: 03-10-2022 Unclassified (17 sources) Onset: 09-01-2018 09-01-2018 Results Test Name Value Interpretation Reference Range Facility Urinalysis macro (dipstick) panel (U)on 04-28-2024 Bilirubin, UA Negative Negative - 4(70) +++ mg/dL [facility] Blood, UA Positive Negative - 50 Kendrick/mcL [facility] Clarity, UA Cloudy [facility] Color, UA Yellow [facility] Glucose, UA Negative Negative - 1999(110) ++++ mg/dL [facility] Ketones, UA Negative Negative - 160(16) ++++ mg/dL [facility] Leukocytes, UA 4+ Negative - 500+++ Ananda/mcL [facility] Nitrite, UA Negative Negative - Positive [facility] pH, UA 5 5 - 9 [facility] e Protein, UA Negative Negative - 1999(20) ++++ mg/dL [facility] Spec Grav, UA 1.01 1 - 1.03 [facility] Urobilinogen, UA 1.0 0.2 - 12 mg/dL [facility] POCT Protime / INRon 04-27- 024 INR Coag (PPP) [Relative time] 3.5 {INR} Abnormal 0.8 - 1.2 [facility] Interpretation and review of laboratory results Abnormal [facility] POCT Protime / INRon 024 INR Coag (PPP) [Relative time] 2.8 {INR} Abnormal 0.8 - 1.2 [facility] Interpretation and review of laboratory results Abnormal [facility] XR CERVICAL SPINE AP/LAT/FLE X/EXT/OBLIQUESon 2024 XR CERVICAL SPINE AP/LAT/FLEX/EXT/OB LIQUES XR - CERVICAL SPINE COMPLETE W/OBLIQUES Reason for exam: Neck pain radiating toño left arm for one month Views: 8 FINDINGS: Alignment: Normal. Atlantoaxial relationship: Normal. Vertebral bodies: Normal in height at each level. Disc levels: There is disc space narrowing and marginal spurring at C3-4, C4-5, C5-6, C6/7 and C7-T1. Foraminal encroachment by osteophytes is noted bilaterally at C3-4, C4-5 and C5-6. Spinal canal: Normal. Posterior elements: Unremarkable. Soft tissues: Unremarkable. Pulmonary apices: Normal. Impression: Multilevel spondylosis as detailed above. No acute findings. Dictated on: 2024 6:22 PM This report has been electronically signed and approved by the interpreting Radiologist. Electronically Signed Robert Costa M.D. 2024 18:24:25 Normal Not Available POCT Protime / INRon 024 INR Coag (PPP) [Relative time] 1.3 {INR} Abnormal 0.8 - 1.2 [facility] Interpretation and review of laboratory results Abnormal [facility] POCT Protime / INRon 024 INR Coag (PPP) [Relative time] 2.3 {INR} Abnormal 0.8 - 1.2 [facility] Interpretation and review of laboratory results Abnormal [facility] BI MAMMOGRAM SCREENING TOMOS YNTHESIS BILATERALon 07-22-2023 BI MAMMOGRAM SCREENING TOMOSYNTHESIS BILATERAL This is a summary report. The complete report is available in the patient's medical record. If you cannot access the medical record, please contact the sending organization for a detailed fax or copy. EXAMINATION: BI MAMMOGRAM SCREENING TOMOSYNTHESIS BILATERAL CLINICAL HISTORY:preventative COMPARISON: May 21, 2022. RESULT: Digital mammography and 3D tomosynthesis of bilateral breasts was performed. Density: Almost entirely fatty [1] There is no suspicious mass, asymmetry, architectural distortion, or calcification. Overall appearance stable. IMPRESSION: BIRADS 1 - Negative Follow-up: Routine Screening Mamm Board Certified Radiologists. Accredited by the ACR and FDA. MAMMOGRAPHY IS VERY IMPORTANT TO YOUR HEALTH. THE [employer] GUIDELINES RECOMMEND THAT WOMEN 40 YEARS OF AGE AND OLDER SHOULD HAVE A MAMMOGRAM EVERY YEAR. A REMINDER LETTER WILL BE SENT AT THE APPROPRIATE TIME. THIS FACILITY UTILIZES A REMINDER SYSTEM TO ENSURE ALL PATIENTS RECEIVE REMINDER NOTIFICATIONS AT THE APPROPRIATE TIME BASED ON THE RECOMMENDATIONS OF THIS EXAM. THIS INCLUDES REMINDERS FOR ROUTINE SCREENING MAMMOGRAMS, DIAGNOSTIC MAMMOGRAMS IN WHICH THE PATIENT IS ASKED TO RETURN FOR ADDITIONAL VIEWS, OR OTHER BREAST IMAGING INTERVENTIONS WHEN APPROPRIATE. THE PATIENT WILL BE PLACED IN THE APPROPRIATE REMINDER SYSTEM INCLUDING A REMINDER AT THE APPROPRIATE TIME FOR ANY PENDING ADDITIONAL VIEWS. TRANSCRIBED BY: ELECTRONICALLY SIGNED BY: Dane Marroquin MD Normal Not Available DEXA BONE DENSITYon 07-22-19 DEXA BONE DENSITY HISTORY: Screening f or osteoporosis COMPARISON: None available COMMENTS: The left forearm and both hips were scanned. The mean bone mineral density of the left forearm is 0.643 g/sq cm. T-score -0.7. Z- score 1.4. The mean bone mineral density of the left femoral neck is 0.536 g/sq cm. T-score -2.8. Z- score -1.1. The mean bone mineral density of the right femoral neck is 0.549 g/sq cm. T-score -2.7. Z- score -0.9. These values meet WHO criteria for osteoporosis. IMPRESSION: OSTEOPOROSIS. 1 year follow-up recommended. ELECTRONICALLY SIGNED BY: Jerzy oLpez DO Normal Not Available POCT Protime / INRon 024 INR Coag (PPP) [Relative time] 2.8 {INR} Abnormal 0.8 - 1.2 [facility] Interpretation and review of laboratory results Abnormal [employer] CT ABDOMEN PELVIS WO IV CONT [facility] 07-09-2023 CT ABDOMEN PELVIS WO IV CONTRAST EXAMINATION: CT ABDOMEN PELVIS WO IV CONTRAST HISTORY: abdominal bulging COMPARISON: None TECHNIQUE: Contiguous axial CT sections of the abdomen and pelvis. Oral contrast administered without i.v. contrast.. Sagittal and coronal reformats have been obtained. All CT scans at this facility use dose modulation, iterative reconstruction, and/or weight based dosing when appropriate to reduce radiation dose to as low as reasonably achievable. FINDINGS Lung bases:Visualized lung bases show no significant pathology Liver: The liver is normal in size and attenuation. There are no focal solid or cystic lesions. There is no intra or extrahepatic bile duct dilatation. Gallbladder: No calcified gallstones. Normal gallbladder wall. No pericholecystic fluid. Spleen: There are no focal lesions or calcifications in the spleen. There is no splenomegaly Pancreas: The pancreas is normal in size and attenuation without focal lesions or dilatation of the pancreatic duct. Adrenal glands are negative. Kidneys: The kidneys are normal in size and position without hydronephrosis or renal stones. Bowel: There is no evidence of bowel obstruction. There is by mouth contrast in the distal small bowel. There are anterior midline ventral hernias. From superior to inferior there is a small ventral hernia containing fat measuring 2.7 cm in greatest diameter. Immediately inferior there is a very large midline ventral hernia, the hernia sac measures 10.2 x 28.5 cm in transverse by 13 cm craniocaudal. The hernia os measures approximately 10 x 9 cm in greatest diameter. The hernia contains multiple loops of bowel including the terminal ileum, the cecum and ascending colon. Appendix: There is no CT evidence for appendicitis. Nodes: No lymphadenopathy. Aorta: There is no abdominal aortic aneurysm. Peritoneum: No free fluid or free air. Urinary bladder: The urinary bladder is within normal limits. Pelvis: There are multiple calcifications associated with the uterus measuring up to 2.1 cm which was likely present partially calcified fibroids. Bones : There are degenerative changes of the thoracic and lumbar spine with changes narrowing and vacuum joint phenomenon at multiple levels. Soft tissues: The soft tissues are unremarkable. IMPRESSION: There is a large midline ventral hernia with a maximum diameter of 28 cm containing multiple loops of bowel including terminal ileum, the cecum and ascending colon. There is no bowel obstruction. ELECTRONICALLY SIGNED BY: Jeremy Khan MD Normal Not Available POCT Protime / INRon 024 INR Coag (PPP) [Relative time] 1.3 {INR} Abnormal 0.8 - 1.2 [facility] Interpretation and review of laboratory results Abnormal [employer] [facility] [facility] [facility] US Pelvic Complete w/Transva ginalon 04-16-2022 US Pelvic Complete w/Transvaginal FINDINGS: Transabdominal and transvaginal imaging was performed. Uterus 5.9 x 5.3 x 3.3 cm Endometrium 2 mm Right Ovarynot seen Left Ovary not seen Normal uterine size. Several heterogeneous shadowing and non-shadowing areas throughout the myometrium largest two within the uterine body each approximating 2.0 x 2.5 cm. Normal endometrium, 2 mm thickness, non-cystic. No adnexal mass. No pelvic fluid. Neither ovary is visualized. IMPRESSION: 1. Normal endometrium. 2. Myometrial appearance consistent with intramural fibroids. Please see renal bladder report. Report reported and signed by Dane Marroquin on 04/16/2022 1216 Normal [facility] US Renal/Bladderon US Renal/Bladder FINDINGS: Right [id number] x 6.3 x 5.2 cm Left [id number] x 5.7 x 5.7 cm Full bladder volume: 95 cc Post-void bladder volume: 5 cc. Normal renal size, cortical volume and echotexture is present for this age. No collecting system dilatation or echogenic foci with posterior shadowing are noted. No echogenic foci or suspicious mass lesions, or wall thickening is present within the bladder. Bilateral ureteral jets are identified. No significant post-void residual is present either. Comparison made with prior CT of December 04, 2021. Diffuse hepatic fatty infiltration. 1.8 x 1.8 cm hypodensity right hepatic lobe subcapsular location, minimal change in size from four months earlier. Imaging characteristics are not consistent with a hemangioma however. There is some thru transmission, no shadowing or soft tissue component. IMPRESSION: 1. Normal kidneys, no significant stone formation or evidence of obstruction. 2. No bladder stone, 5 cc post-void residual. 3. Right hepatic lobe findings not characteristic of benign cavernous hepatic hemangioma however morphology suggests a benign cyst. Recommend follow up hepatic ultrasound if the stability of this has not been established in 6 months and the patient has no primary history of carcinoma. Report reported and signed by Dane Marroquin on 04/16/2022 1226 Normal [facility] A1C HEMOGLOBINon 03-10-2022 HbA1c (Bld) [Mass fraction] 5.8 % [place] Other HbA1c (Bld) [Mass fraction]o n 03-10-2022 A1C HEMOGLOBIN [facility] 1000memories Other CNOVon 01-07-2022 CNOV Office Visit (ANGIE ) DIANNA XIONG ([id number]) 1955 F Date Time Provider Department 01/07/22 3:45 PM ELLY BLISS During your visit today, we recorded the following information about you: Temperature Pulse Respiration Blood pressure 96.6 degrees 76/minute 12/minute 149/100 Weight Height 149.7 kg 1.651 m Felix Moon 01/07/2022 2:58 PM Signed What is the reason for your visit today? Follow up Who is your referring physician? Dr. bliss Are you having poor oral intake? NO Have you had unintentional weight loss of 15 lbs/7 Kg in the last 3-6 months? NO Bowels: regular Wound: clean AND dry Temperature: No Drains: No Elly Bliss MD 01/08/2022 12:46 AM Signed Dianna Xiong is a 66 year old woman with a BMI of nearly 55. She is here today for a recurrent ventral hernia. HPI: Patient presented with an incarcerated umblical hernia and had an urgent laparoscopic repair with mesh on 06/23/2019 by me. Her BMI at that time was 54.75. She was advised to lose weight, but couldn't. She returned on 06/04/21 complaining of erythema and drainage from the umbilicus as well as recurrent bulging, tenderness and a foul smelling discharge. Oral antibiotics did not improve her drainage. . On examination the skin was red and there was bulging consistent with a recurrent hernia. There was ulceration on the right lateral portion of the umbilicus. CT scan showed that the mesh had form the abdominal wall. Small bowel and omentum were herniated through the defect. I was concerned that the redness could indicate infected mesh and possibly a sinus into the bowel. I recommended wound exploration under genera anesthesia with removal of the mesh, reduction of the bowel and omentum back into the abdominal cavity, and repair of the recurrent hernia. I took her back to the OR on 07/19/21, debrided the abdominal wall and did a repair with a sublay of BioA absorbable mesh. Post op she took a long time to heal her wound. Today, her wound is healed, but she once again as a recurrent hernia measuring about [address] and about 10 cm long. Her current BMI is 54.91. She has no obstructive symptoms at present. Of note, her December 2019 CT also showed a 6 mm left lower lobe pulmonary nodule stable when compared to [address] chest was recommended for December 2020. A repeat chest Ct was done on 04/11/21 for evaluation of chest pain showing a 2 mm right middle lobe pulmonary nodule, and a left lower lobe pulmonary nodule measuring 7 mm, increased in size from 2017. ??Follow-up CT chest in 6 months and 18-24 months was recommended. ?Her past medical hx was significant for GWENDOLYN, DVT with pulmonary embolism in 2006 and 2013, dyspnea on exertion, rheumatoid arrthritis, hypercholesterolemia, depression, chronic cough, benign thyroid cyst, GERD, hypertension, history of rheumatic fever, and peptic ulcer disease. Also has a hx of chronic back pain with steroid epidural injections at L4-L5. Family hx - Diabetes Mother - Breast cancer Mother 70 - Alzheimer's disease Mother - Heart disease Mother - Heart disease Father - Breast cancer Sister 65 - Anesthesia problems Neg Hx Exam: abdomen markedly obese with reducible recurrent ventral hernia. There is a large bulge when she stands up. Latest CT abdomen uploaded into [employer] and reviewed. IMP: Recurrent ventral hernai Supermorbid obesity. PLAN: Refer to bariatrics. Repair of the hernia will be unsuccessful until she can lose the weight. At some point, she will need a retrorectus repair and a JAELYN. Elly Bliss MD Referring Provider: SELF [[id number]] Allergies As of Date: 01/07/2022 Noted Allergy Reaction CEPHALEXIN MONOHYDRATE 10/13/2013 14 - Other: See Comments Comments: Red all over FUROSEMIDE 04/03/2019 9 - Itching GABAPENTIN 10/13/2013 14 - Other: See Comments Comments: Weakness, Sob GRASS POLLEN 03/05/2018 14 - Other: See Comments HYDROCODONE BITARTRATE 10/13/2013 14 - Other: See Comments Comments: Extreme constipation LATEX 02/08/2018 14 - Other: See Comments Comments: Added based on information entered during case entry, please review and add reactions, type, and severity as needed PENICILLINS 10/13/2013 14 - Other: See Comments Comments: Red all over RAGWEED POLLEN 03/05/2018 14 - Other: See Comments SULFA (SULFONAMIDE ANTIBIOTICS) 10/13/2013 16 - Unknown TOPIRAMATE 10/13/2013 14 - Other: See Comments Comments: Difficulty breathing TRAMADOL 06/21/2019 1 - Mental Status Change CAT DANDER 10/27/2016 7 - Swelling Comments: Swelling of eyes ETODOLAC 10/22/2016 14 - Other: See Comments Comments: Other reaction(s): Intolerance-unknown MOLD 10/22/2016 9 - Itching Date Reviewed: 09/17/2021 Reviewed by: Narcisa Serna Ma - Fully Assessed Reason for Visit: Established Patient [175] Primary Visit Diagnosis:Body mass (more content not included)... Normal [facility] Q - CREATININE W/EGFRon 11-20 Creatinine [Mass/Vol] 1.03 mg/dL High 0.50-0.99 [facility] Program Director/Air Personality Comment on above: Order Comment: [facility] Testing performed at: [facility], [address] [facility], [address] [place] [address], [address] [place] [address], Senior Drupal Developer: Escobar Marsh MD [facility] Collection Date/Time: [facility] Results Received Date/Time: [facility] Reported Date/Time: Result Comment: For patients >49 years of age, the reference limit for Creatinine is approximately 13% higher for people identified as -Kittitian. Performed By: #### 3 [id number] #### [facility] Default [address] [place] [address] eGFRAA ([facility]) 65 mL/min/1.73m2 Normal > OR = 60 [facility] Program Director/Air Personality Comment on above: Order Comment: [facility] Testing performed at: [facility], [address] [facility], [address] [place] [address], [address] [place] [address], Senior Drupal Developer: Escobar Marsh MD [facility] Collection Date/Time: [id number] [facility] Results Received Date/Time: [facility] Reported Date/Time: Performed By: #### 3 75X #### [facility] [address] [place] [address] eGFRNAA ([facility]) 56 mL/min/1.73m2 Low > OR = 60 [facility] Program Director/Air Personality Comment on above: Order Comment: [facility] Testing performed at: [facility], [address] [place] , [address] [place] [address], [id number], Senior Drupal Developer: Escobar Marsh MD [facility] Collection Date/Time: [facility] Results Received Date/Time: [facility] Reported Date/Time: [id number] Performed By: #### 3 75X #### [facility] Default [address] [place] [address] CNOVon 09-17-2021 CNOV Office Visit (ANGIE ) DIANNA XIONG ([id number]) 1955 F Date Time Provider Department 09/17/21 3:15 PM ELLY BLISS During your visit today, we recorded the following information about you: Temperature Pulse Blood pressure Weight 97.4 degrees 90/minute 151/76 145.2 kg Height 1.651 m Narcisa Serna Ma 09/17/2021 2:33 PM Signed What is the reason for your visit today? Post op Who is your referring physician? Dr. bliss Are you having poor oral intake? NO Have you had unintentional weight loss of 15 lbs/7 Kg in the last 3-6 months? YES Bowels: constipated Wound: clean AND dry Temperature: No Drains: No Elly Bliss MD 09/17/2021 4:58 PM Signed [facility] POST OPERATIVE CLINIC VISIT SERVICE DATE: 09/17/2021 SERVICE TIME: 3:02 PM PRIMARY CARE PHYSICIAN: Abiola Pace MD Subjective INTERVAL HISTORY OF PRESENT ILLNESS: Ms. Xiong is a 66 year old female who presents for a post operative check. She has PMH of morbid obesity (BMI 54), asthma, HTN, DVT/PE (on alf warfarin) who presented on 07/19/21 and underwent an ex lap, ELENA, removal of old mesh, and repair of recurrent ventral hernia and implantation of BioA mesh on 07/19/2021 after she developed a chronic wound after an emergent laparoscopic repair of an incisional hernia at the umbilicus on 06/23/2019. She was discharged on 07/23/21 with a 10 day course of abx for cellulitis around her wound. Since then, she has been recovering well. Pain is minimal. There is no drainage from from wound and has occasional HHC who checks her wound. She has not yet consumed high fibers meals, but is tolerating a diet and having regular bowel function. Pain is minimal. She is planning on visiting her family who live about 3 hours away. She is taking warfarin for her history of PE but has no bruising or hematoma around her wound. Objective PHYSICAL EXAM: BP 151/76 Pulse 90 Temp (Src) 97.4 (Temporal) Ht 5' 5 (1.65m) Wt 320 lb (145.2kg) BMI 53.25 kg/(m2). Physical Exam Performed GENERAL: Alert, no distress, cooperative LUNGS: Slight SOB when standing up from chair ABDOMEN: Abdomen soft, nontender, midline incision is well healing with no discharge or erythema surrounding it DATA: Diagnostic tests reviewed for today's visit: N/a Assessment/Plan Ms. Xiong is a 66 year old female who is s/p ex lap, ELENA, removal of old mesh, and repair of recurrent ventral hernia and implantation of BioA mesh on 07/19/2021. Doing well on her post operative visit. - Follow up with Dr Bliss in clinic in 6 months. Plan to be discussed with staff. Angela Nixon MD General Surgery STAFF NOTE: Patient seen and personally examined with resident. Findings personally reviewed and confirmed including history,ROS, PMHx, PSHx, Fam Hx, Soc Hx and Physical exam except as otherwise noted below. Patient s/p removal of infected mesh and repair of recurrent ventral hernia with intraperitoneal sublay of BioA and primary fascial closure. Today she feels well. Her wound has closed and I don't see anything requiring packing at this time. I don't feel any recurrent hernias. IMP: S/p repair incarcerated recurrent ventral hernia with infected mesh BMI 53 PLAN: Advised her to lose weight if at all possible. Wear binder for comfort when up See as needed. Elly Bliss MD Referring Provider: ELLY BLISS [[id number]] Allergies As of Date: 09/17/2021 Noted Allergy Reaction CEPHALEXIN MONOHYDRATE 10/13/2013 14 - Other: See Comments Comments: Red all over FUROSEMIDE 04/03/2019 9 - Itching GABAPENTIN 10/13/2013 14 - Other: See Comments Comments: Weakness, Sob GRASS POLLEN 03/05/2018 14 - Other: See Comments HYDROCODONE BITARTRATE 10/13/2013 14 - Other: See Comments Comments: Extreme constipation LATEX 02/08/2018 14 - Other: See Comments Comments: Added based on information entered during case entry, please review and add reactions, type, and severity as needed PENICILLINS 10/13/2013 14 - Other: See Comments Comments: Red all over RAGWEED POLLEN 03/05/2018 14 - Other: See Comments SULFA (SULFONAMIDE ANTIBIOTICS) 10/13/2013 16 - Unknown TOPIRAMATE 10/13/2013 14 - Other: See Comments Comments: Difficulty breathing TRAMADOL 06/21/2019 1 - Mental Status Change CAT DANDER 10/27/2016 7 - Swelling Comments: Swelling of eyes ETODOLAC 10/22/2016 14 - Other: See Comments Comments: Other reaction(s): Intolerance-unknown MOLD 10/22/2016 9 - Itching Date Reviewed: 09/17/2021 Reviewed by: Narcisa Serna Ma - Fully Assessed Reason for Visit: Post Op [174] Primary Visit Diagnosis:S/P recurrent ventral herniorrhaphy [Z98.890, Z87.19] Other Visit Diagnoses:BMI 50.0-59.9, adult (HCC) [Z68.43] Hx pulmonary embolism [Z86.711] Anticoagulated [Z79.01] Essential hypertension [I10] Obstructive (more content not included)... Normal [facility] 09-05-2021 CNPN Telephone (ANGIE) DIANNA XIONG ([id number]) 1955 F Date Time Provider Department 09/05/21 ELLY BLISS During your visit today, we recorded the following information about you: Jose James RN 09/05/2021 11:44 AM Signed Patient had questions regarding her wound and post op questions. She states that the home care nurse mentioned a bubble when doing her last dressing change. I have informed her that I will contact the home care nurse and call her back. Patient wanted to know if she could go grocery shopping and vacuum. She has been advised that from a surgical standpoint, she does not any restrictions keeping her from doing the above. After talking to the wound care nurse. I called patient back to inform her of the new orders and that she will have an appt. with Dr. Bliss on 09/17 at 315 pm. Wound care orders: Aquacell applied every other day (Mon, Wed, Fri) and prn for drainage. She has verbalized all of the above. Allergies As of Date: 09/05/2021 Noted Allergy Reaction CEPHALEXIN MONOHYDRATE 10/13/2013 14 - Other: See Comments Comments: Red all over FUROSEMIDE 04/03/2019 9 - Itching GABAPENTIN 10/13/2013 14 - Other: See Comments Comments: Weakness, Sob GRASS POLLEN 03/05/2018 14 - Other: See Comments HYDROCODONE BITARTRATE 10/13/2013 14 - Other: See Comments Comments: Extreme constipation LATEX 02/08/2018 14 - Other: See Comments Comments: Added based on information entered during case entry, please review and add reactions, type, and severity as needed PENICILLINS 10/13/2013 14 - Other: See Comments Comments: Red all over RAGWEED POLLEN 03/05/2018 14 - Other: See Comments SULFA (SULFONAMIDE ANTIBIOTICS) 10/13/2013 16 - Unknown TOPIRAMATE 10/13/2013 14 - Other: See Comments Comments: Difficulty breathing TRAMADOL 06/21/2019 1 - Mental Status Change CAT DANDER 10/27/2016 7 - Swelling Comments: Swelling of eyes ETODOLAC 10/22/2016 14 - Other: See Comments Comments: Other reaction(s): Intolerance-unknown MOLD 10/22/2016 9 - Itching Date Reviewed: 08/20/2021 Reviewed by: Narcisa Serna Ma - Fully Assessed Reason for Visit: Wound Care [485] Cmt: wound care and post op questions Prescriptions as of 09/05/2021 - Gauze Bandage (CURITY GAUZE) 4 X 4 spge Apply 1 application to affected area as needed. Change wound packing daily and soak with normal saline - Adhesive Tape (DURAPORE SURGICAL) 3 X 10 -yard tape Apply 1 application to affected area as needed. - Gauze Bandage (CURITY PLAIN PACKING STRIP) 1/2 X 5 -yard bndg Apply 1 application to affected area once daily. - Sodium Chloride, External, (WOUND WASH SALINE) 0.9 % spra Apply to affected area once daily. - warfarin (COUMADIN) 5 mg tablet Take 1 tablet by mouth daily as directed for 14 days. - lactobacillus rhamnosus (CULTURELLE) 10 billion cell capsule Take 1 capsule by mouth once daily for 14 days. - acetaminophen (TYLENOL) 325 mg tablet Take 2 tablets by mouth every 6 hours as needed for pain. - ALBUTEROL INHALATION Inhale as instructed. - tiotropium bromide (SPIRIVA RESPIMAT) 1.25 mcg/actuation mist Inhale 1.25 mcg as instructed. - montelukast (SINGULAIR) 10 mg tablet Take 10 mg by mouth daily at bedtime. - propylene glycol (SYSTANE BALANCE) 0.6 % drop Use 1 Drop in the right eye. - omega-3 acid ethyl esters 1 gram capsule Take 2 g by mouth twice daily. - LUTEIN ORAL Take by mouth. - olopatadine (PATANOL) 0.1 % ophthalmic solution 1 Drop as needed. - hydroCHLOROthiazide (HYDRODIURIL, ESIDRIX) 12.5 mg tablet Take 12.5 mg by mouth. - TRIAMCINOLONE ACETONIDE (NASACORT NASAL) Use in the nose. - ESCITALOPRAM OXALATE (LEXAPRO ORAL) Take by mouth. - lansoprazole (PREVACID) 30 mg capsule Take by mouth. - Cholecalciferol, Vitamin D3, (VITAMIN D-3) 2,000 unit cap Take by mouth. Problem List As Of Date 09/05/2021 Noted Resolved Endometrial thickening on ultrasound [R93.89] 01/19/2017 Lumbar spondylosis [M47.816] 02/08/2018 Lumbosacral spondylosis without myelopathy [M47*03/23/2018 Uterine leiomyoma [D25.9] 01/19/2017 Thyroid nodule [E04.1] 03/29/2018 Morbid obesity (HCC) [E66.01] 03/29/2018 DVT (deep venous thrombosis) ([facility]) [I82.409] Morbid obesity with body mass index of 50.0-59.*06/01/2019 Post-operative state [Z98.890] 06/23/2019 Incisional hernia without obstruction or gangre*06/24/2019 06/24/2019 HTN (hypertension) [I10] 07/09/2021 GERD (gastroesophageal reflux disease) [K21.9] 07/09/2021 GWENDOLYN (obstructive sleep apnea) [G47.33] 07/09/2021 Abnormal stress test [R94.39] 07/09/2021 Asthma [J45.909] 07/09/2021 Infected hernioplasty mesh (HCC) [T85.79XA] 07/19/2021 07/23/2021 Lung disease [J98.4] 07/19/2021 Anticoagulated [Z79.01] 07/23/2021 Postoperative wound cellulitis [T81.49XA] 07/23/2021 Encounter Status:Closed by (more content not included)... [facility] ([id number]) 1955 F Date Time Provider Department 09/05/21 ELLY BLISS During your visit today, we recorded the following information about you: Jose James, RN 09/05/2021 11:47 AM Signed I returned call to [facility]. to discuss patient's wound. She states that the wound measures 2.5 cm at 12 0'clock. Due to patient's insurance coverage running out for daily visits, she is suggesting that they use aquacell every other day (Mon, Wed, Fri) and prn for drainage. Dr. Bliss has agreed with the new plan. I have also informed her that patient has an appt. with Dr. Bliss on 09/17 at 315. Allergies As of Date: 09/05/2021 Noted Allergy Reaction CEPHALEXIN MONOHYDRATE 10/13/2013 14 - Other: See Comments Comments: Red all over FUROSEMIDE 04/03/2019 9 - Itching GABAPENTIN 10/13/2013 14 - Other: See Comments Comments: Weakness, Sob GRASS POLLEN 03/05/2018 14 - Other: See Comments HYDROCODONE BITARTRATE 10/13/2013 14 - Other: See Comments Comments: Extreme constipation LATEX 02/08/2018 14 - Other: See Comments Comments: Added based on information entered during case entry, please review and add reactions, type, and severity as needed PENICILLINS 10/13/2013 14 - Other: See Comments Comments: Red all over RAGWEED POLLEN 03/05/2018 14 - Other: See Comments SULFA (SULFONAMIDE ANTIBIOTICS) 10/13/2013 16 - Unknown TOPIRAMATE 10/13/2013 14 - Other: See Comments Comments: Difficulty breathing TRAMADOL 06/21/2019 1 - Mental Status Change CAT DANDER 10/27/2016 7 - Swelling Comments: Swelling of eyes ETODOLAC 10/22/2016 14 - Other: See Comments Comments: Other reaction(s): Intolerance-unknown MOLD 10/22/2016 9 - Itching Date Reviewed: 08/20/2021 Reviewed by: Narcisa Serna Ma - Fully Assessed Reason for Visit: Wound Care [485] Cmt: new orders Prescriptions as of 09/05/2021 - Gauze Bandage (CURITY GAUZE) 4 X 4 spge Apply 1 application to affected area as needed. Change wound packing daily and soak with normal saline - Adhesive Tape (DURAPORE SURGICAL) 3 X 10 -yard tape Apply 1 application to affected area as needed. - Gauze Bandage (CURITY PLAIN PACKING STRIP) 1/2 X 5 -yard bndg Apply 1 application to affected area once daily. - Sodium Chloride, External, (WOUND WASH SALINE) 0.9 % spra Apply to affected area once daily. - warfarin (COUMADIN) 5 mg tablet Take 1 tablet by mouth daily as directed for 14 days. - lactobacillus rhamnosus (CULTURELLE) 10 billion cell capsule Take 1 capsule by mouth once daily for 14 days. - acetaminophen (TYLENOL) 325 mg tablet Take 2 tablets by mouth every 6 hours as needed for pain. - ALBUTEROL INHALATION Inhale as instructed. - tiotropium bromide (SPIRIVA RESPIMAT) 1.25 mcg/actuation mist Inhale 1.25 mcg as instructed. - montelukast (SINGULAIR) 10 mg tablet Take 10 mg by mouth daily at bedtime. - propylene glycol (SYSTANE BALANCE) 0.6 % drop Use 1 Drop in the right eye. - omega-3 acid ethyl esters 1 gram capsule Take 2 g by mouth twice daily. - LUTEIN ORAL Take by mouth. - olopatadine (PATANOL) 0.1 % ophthalmic solution 1 Drop as needed. - hydroCHLOROthiazide (HYDRODIURIL, ESIDRIX) 12.5 mg tablet Take 12.5 mg by mouth. - TRIAMCINOLONE ACETONIDE (NASACORT NASAL) Use in the nose. - ESCITALOPRAM OXALATE (LEXAPRO ORAL) Take by mouth. - lansoprazole (PREVACID) 30 mg capsule Take by mouth. - Cholecalciferol, Vitamin D3, (VITAMIN D-3) 2,000 unit cap Take by mouth. Problem List As Of Date 09/05/2021 Noted Resolved Endometrial thickening on ultrasound [R93.89] 01/19/2017 Lumbar spondylosis [M47.816] 02/08/2018 Lumbosacral spondylosis without myelopathy [M47*03/23/2018 Uterine leiomyoma [D25.9] 01/19/2017 Thyroid nodule [E04.1] 03/29/2018 Morbid obesity (HCC) [E66.01] 03/29/2018 DVT (deep venous thrombosis) ([facility]) [I82.409] Morbid obesity with body mass index of 50.0-59.*06/01/2019 Post-operative state [Z98.890] 06/23/2019 Incisional hernia without obstruction or gangre*06/24/2019 06/24/2019 HTN (hypertension) [I10] 07/09/2021 GERD (gastroesophageal reflux disease) [K21.9] 07/09/2021 GWENDOLYN (obstructive sleep apnea) [G47.33] 07/09/2021 Abnormal stress test [R94.39] 07/09/2021 Asthma [J45.909] 07/09/2021 Infected hernioplasty mesh (HCC) [T85.79XA] 07/19/2021 07/23/2021 Lung disease [J98.4] 07/19/2021 Anticoagulated [Z79.01] 07/23/2021 Postoperative wound cellulitis [T81.49XA] 07/23/2021 Encounter Status:Closed by JOSE JAMES on 09/05/21 [facility] CNPNon 08-22-2021 CNPN Telephone ([employer]) DIANNA XIONG ([id number]) 1955 F Date Time Provider Department 08/22/21 ELLY BLISS During your visit today, we recorded the following information about you: Elly Bliss MD 08/22/2021 3:09 PM Signed I left a message on the home telephone telling her that wound cultures were negative, so far. I also called the mobile number. There was no answer and the voice mail was not set up. Elly Bliss MD Allergies As of Date: 08/22/2021 Noted Allergy Reaction CEPHALEXIN MONOHYDRATE 10/13/2013 14 - Other: See Comments Comments: Red all over FUROSEMIDE 04/03/2019 9 - Itching GABAPENTIN 10/13/2013 14 - Other: See Comments Comments: Weakness, Sob GRASS POLLEN 03/05/2018 14 - Other: See Comments HYDROCODONE BITARTRATE 10/13/2013 14 - Other: See Comments Comments: Extreme constipation LATEX 02/08/2018 14 - Other: See Comments Comments: Added based on information entered during case entry, please review and add reactions, type, and severity as needed PENICILLINS 10/13/2013 14 - Other: See Comments Comments: Red all over RAGWEED POLLEN 03/05/2018 14 - Other: See Comments SULFA (SULFONAMIDE ANTIBIOTICS) 10/13/2013 16 - Unknown TOPIRAMATE 10/13/2013 14 - Other: See Comments Comments: Difficulty breathing TRAMADOL 06/21/2019 1 - Mental Status Change CAT DANDER 10/27/2016 7 - Swelling Comments: Swelling of eyes ETODOLAC 10/22/2016 14 - Other: See Comments Comments: Other reaction(s): Intolerance-unknown MOLD 10/22/2016 9 - Itching Date Reviewed: 08/20/2021 Reviewed by: Narcisa Serna Ma - Fully Assessed Reason for Visit: Results [95] Prescriptions as of 08/22/2021 - Gauze Bandage (CURITY GAUZE) 4 X 4 spge Apply 1 application to affected area as needed. Change wound packing daily and soak with normal saline - Adhesive Tape (DURAPORE SURGICAL) 3 X 10 -yard tape Apply 1 application to affected area as needed. - Gauze Bandage (CURITY PLAIN PACKING STRIP) 1/2 X 5 -yard bndg Apply 1 application to affected area once daily. - Sodium Chloride, External, (WOUND WASH SALINE) 0.9 % spra Apply to affected area once daily. - warfarin (COUMADIN) 5 mg tablet Take 1 tablet by mouth daily as directed for 14 days. - lactobacillus rhamnosus (CULTURELLE) 10 billion cell capsule Take 1 capsule by mouth once daily for 14 days. - acetaminophen (TYLENOL) 325 mg tablet Take 2 tablets by mouth every 6 hours as needed for pain. - ALBUTEROL INHALATION Inhale as instructed. - tiotropium bromide (SPIRIVA RESPIMAT) 1.25 mcg/actuation mist Inhale 1.25 mcg as instructed. - montelukast (SINGULAIR) 10 mg tablet Take 10 mg by mouth daily at bedtime. - propylene glycol (SYSTANE BALANCE) 0.6 % drop Use 1 Drop in the right eye. - omega-3 acid ethyl esters 1 gram capsule Take 2 g by mouth twice daily. - LUTEIN ORAL Take by mouth. - olopatadine (PATANOL) 0.1 % ophthalmic solution 1 Drop as needed. - hydroCHLOROthiazide (HYDRODIURIL, ESIDRIX) 12.5 mg tablet Take 12.5 mg by mouth. - TRIAMCINOLONE ACETONIDE (NASACORT NASAL) Use in the nose. - ESCITALOPRAM OXALATE (LEXAPRO ORAL) Take by mouth. - lansoprazole (PREVACID) 30 mg capsule Take by mouth. - Cholecalciferol, Vitamin D3, (VITAMIN D-3) 2,000 unit cap Take by mouth. Problem List As Of Date 08/22/2021 Noted Resolved Endometrial thickening on ultrasound [R93.89] 01/19/2017 Lumbar spondylosis [M47.816] 02/08/2018 Lumbosacral spondylosis without myelopathy [M47*03/23/2018 Uterine leiomyoma [D25.9] 01/19/2017 Thyroid nodule [E04.1] 03/29/2018 Morbid obesity (HCC) [E66.01] 03/29/2018 DVT (deep venous thrombosis) ([facility]) [I82.409] Morbid obesity with body mass index of 50.0-59.*06/01/2019 Post-operative state [Z98.890] 06/23/2019 Incisional hernia without obstruction or gangre*06/24/2019 06/24/2019 HTN (hypertension) [I10] 07/09/2021 GERD (gastroesophageal reflux disease) [K21.9] 07/09/2021 GWENDOLYN (obstructive sleep apnea) [G47.33] 07/09/2021 Abnormal stress test [R94.39] 07/09/2021 Asthma [J45.909] 07/09/2021 Infected hernioplasty mesh (HCC) [T85.79XA] 07/19/2021 07/23/2021 Lung disease [J98.4] 07/19/2021 Anticoagulated [Z79.01] 07/23/2021 Postoperative wound cellulitis [T81.49XA] 07/23/2021 Encounter Status:Closed by ELLY BLISS on 08/22/21 Normal [facility] Bacteria Wnd Culton 08-21-19 22 Bacteria identified Cx Nom (Wound) CULTURE, WOUND: No growth 4 days GRAM STAIN: Few Gram positive cocci in clusters No Polymorphonuclear Leukocytes Abnormal [facility] Comment on above: Performed By: #### [phone] ####[facility] [id number] [place] [address] [place] CNOVon 08-20-2021 CNOV Office Visit (GENSMN ) DIANNA XIONG ([id number]) 1955 F Date Time Provider Department 08/20/21 3:45 PM ELLY BLISS During your visit today, we recorded the following information about you: Temperature Pulse Blood pressure Weight 97.5 degrees 100/minute 147/81 140.2 kg Height 1.651 m Narcisa Serna Baldomero 08/20/2021 2:44 PM Signed What is the reason for your visit today? Post op Who is your referring physician? Dr. bliss Are you having poor oral intake? NO Have you had unintentional weight loss of 15 lbs/7 Kg in the last 3-6 months? NO Bowels: constipated Wound: drainage blood and smell Temperature: No Drains: No Elly Bliss MD 08/20/2021 5:48 PM Signed GENERAL SURGERY PROGRESS NOTE Subjective: 66 year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 [place] [phone] eGFR- Amer. >60 Normal [facility] Comment on above: Performed By: #### C BCDIF, BMP, MG1, PHOS ####[place] [address] [place], [place] [phone] eGFR-All Other Races 55 . Normal [facility] Comment on above: Result Comment: eGFR (Estimated GFR) Units of measure: mL/min/1.73 meters squared eGFR is derived from the reexpressed MDRD Study equation using the following parameters: serum creatinine, age, gender and race. The creatinine assay has been calibrated to be traceable to IDMS. An eGFR <60 mL/min/1.73m2 for >3 months is consistent with chronic kidney disease. Refer to KDOQI guidelines for clinical interpretation. In patients with unstable renal function, e.g. those with acute kidney injury, the eGFR may not accurately reflect actual GFR. Note: On 08/17/2021, the eGFR calculation will be updated to the NKF-ASN Task Force recommended 2020 CKD-EPI creatinine equation which does not include a race variable. For more information or to access a 2020 CKD-EPI calculator, visit the National Kidney Foundation website at kidney.org/professionals/kdoqi/gfr_calculator. Performed By: #### C BCDIF, BMP, MG1, PHOS ####[facility] [place], [place] [phone] Glucose [Mass/Vol] 105 mg/dL High 74-99 [facility] Comment on above: Result Comment: The [place] Diabetes Association (ADA) provides guidance for cutoff values for fasting glucose and random glucose. The ADA defines fasting as no caloric intake for at least 8 hours. Fasting plasma glucose results between 100 to 125 mg/dL indicate increased risk for diabetes (prediabetes). Fasting plasma glucose results greater than or equal to 126 mg/dL meet the criteria for diagnosis of diabetes. In the absence of unequivocal hyperglycemia, results should be confirmed by repeat testing. In a patient with classic symptoms of hyperglycemia or hyperglycemic crisis, random plasma glucose results greater than or equal to 200 mg/dL meet the criteria for diagnosis of diabetes. Reference: Standards of Medical Care in Diabetes 2016, [place] Diabetes Association. Diabetes Care. 2016.39(Suppl 1). Performed By: #### C BCDIF, BMP, MG1, PHOS ####[facility], [place] [phone] Potassium [Moles/Vol] 4.4 mmol/L Normal 3.7-5.1 [facility] Comment on above: Performed By: #### C BCDIF, BMP, MG1, PHOS ####[facility], [place] [phone] Sodium [Moles/Vol] 141 mmol/L Normal 136-144 [facility] Comment on above: Performed By: #### C BCDIF, BMP, MG1, PHOS ####[facility] [address], [place] [phone] Urea nitrogen [Mass/Vol] 15 mg/dL Normal 7-21 [facility] Comment on above: Performed By: #### C BCDIF, BMP, MG1, PHOS ####[facility], [place] [phone] CASE MANAGEMon 07-23-2021 CASE MANAGEM HNO ID: [id number] Author: Venita Kuhn Cma Service: ? Author Type: ? Type: Care Mgt Progress Note Filed: 07/23/2021 11:04 AM Note Text: CARE MANAGEMENT PROGRESS NOTE SERVICE DATE: 07/23/2021 SERVICE TIME: 11:03 AM LOS: 4 days IMM Follow Up Copy Given: Yes Copy given to:: Patient Method: By Phone SIGNATURE: Venita Bam Morales PATIENT NAME: Dianna Xiong DATE: July 23, 2021 TIME: 11:03 AM PAGER/CONTACT #: [phone] [facility] CASE MANAGEM HNO ID: [id number] Author: RICKY Quiros Service: Social Work Author Type: Industrial Waste Treatment Technician Type: Care Mgt Progress Note Filed: 07/23/2021 9:36 AM Note Text: CARE MANAGEMENT DISCHARGE NOTE SERVICE DATE: 07/23/2021 SERVICE TIME: 9:34 AM LOS: 4 days Admission Date: 07/19/2021 DISCHARGE ARRANGEMENT (list agency and phone number) Discharge Arrangement: Home with [facility] CAREGIVER ASSESSMENT: Caregiver is ready, willing and able to meet the patient's needs as recommended by the inter-professional team:: Yes Does the patient have an acute stroke diagnosis, or has the patient had a stroke during this admission?: No Patient's transition needs and plan for meeting these needs: Home with [facility] HANDOFF COMMUNICATION: Handoff to: Primary Care Physician (Chuck Padron) Primary Care Physician Name/Phone: Dr. Pace TRANSPORTATION ARRANGEMENTS: Transportation Arrangements: Car Discharge Information Row Name Admission (Current) from 07/19/2021 in HOSP MAIN G090 Home Health Care Agency [facility] Start of Care ? Within 24-48 hours of hospital dicharge. Needs Prior to Discharge: None Chart reviewed. DC order is written. Plan is for discharge home with [facility] for skilled needs. Anticipated SOC date is 24-48 hours of hospital discharge. Summary of care sent via [employer]. Family to transport. No additional CM needs. If plans should change for discharge, please update via [employer] chat. SIGNATURE: Krissy Santa Claus, DEFENSIVE LINE COACH, LAP WINDING MACHINE OPERATOR PATIENT NAME: Dianna Xiong DATE: July 23, 2021 TIME: 9:34 AM PAGER/CONTACT #: [phone] Normal [facility] CBC and Differentialon 07-23 Abs Baso 0.03 k/uL Normal <0.11 [facility] Comment on above: Performed By: #### C BCDIF, BMP, MG1, PHOS ####[place] [address] [address] [place] [phone] Abs Cassia 0.66 k/uL Normal <0.87 [facility] Comment on above: Performed By: #### C BCDIF, BMP, MG1, PHOS ####[place] [address] [address] [place] [phone] Abs Neut 5.10 k/uL Normal 1.45-7.50 [facility] Comment on above: Performed By: #### C BCDIF, BMP, MG1, PHOS ####[place] [address] [address] [place] [phone] Absolute nRBC <0.01 Normal <0.01 [facility] Comment on above: Performed By: #### C BCDIF, BMP, MG1, PHOS ####[facility] [place] [phone] Basophils/100 WBC (Bld) 0.4 % Normal [facility] Comment on above: Performed By: #### C BCDIF, BMP, MG1, PHOS ####[facility] [place] [phone] DTYPE Auto Diff Normal [facility] Comment on above: Performed By: #### C BCDIF, BMP, MG1, PHOS ####[place] [address] [place] [phone] Eosinophils (Bld) [#/Vol] 0.25 10*3/uL Normal <0.46 [facility] Comment on above: Performed By: #### C BCDIF, BMP, MG1, PHOS ####[facility] [place] [phone] Eosinophils/100 WBC (Bld) 3.5 % Normal [facility] Comment on above: Performed By: #### C BCDIF, BMP, MG1, PHOS ####[place] [address] [address] [place] [phone] Erythrocyte distribution width (RBC) [Ratio] 14.9 % Normal 11.5-15.0 [facility] Comment on above: Performed By: #### C BCDIF, BMP, MG1, PHOS ####[place] [address] [address] [place] [phone] Hematocrit (Bld) [Volume fraction] 37.7 % Normal 36.0-46.0 [facility] Comment on above: Performed By: #### C BCDIF, BMP, MG1, PHOS ####[place] [address] [address] [place] [phone] Hemoglobin (Bld) [Mass/Vol] 11.9 g/dL Normal 11.5-15.5 [facility] Comment on above: Performed By: #### C BCDIF, BMP, MG1, PHOS ####[place] [address] [address] [place] [phone] Lymphocytes (Bld) [#/Vol] 1.06 10*3/uL Normal 1.00-4.00 [facility] Comment on above: Performed By: #### C BCDIF, BMP, MG1, PHOS ####[facility]level[address] [place] [phone] Lymphocytes/100 WBC (Bld) 14.9 % Normal [facility] Comment on above: Performed By: #### C BCDIF, BMP, MG1, PHOS ####[facility] [facility] [place] [phone] MCH 30.0 pG Normal 26.0-34.0 [facility] Comment on above: Performed By: #### C BCDIF, BMP, MG1, PHOS ####[place] [address] [address], [place] [phone] MCHC (RBC) [Mass/Vol] 31.6 g/dL Normal 30.5-36.0 [facility] Comment on above: Performed By: #### C BCDIF, BMP, MG1, PHOS ####[place] [address] [place] [phone] MCV (RBC) [Entitic vol] 95.0 fL Normal 80.0-100.0 [facility] Comment on above: Performed By: #### C BCDIF, BMP, MG1, PHOS ####[place] [address] [address] [place] [phone] Monocytes/100 WBC (Bld) 9.3 % Normal [facility] Comment on above: Performed By: #### C BCDIF, BMP, MG1, PHOS ####[place] [address] [address] [place] [phone] Neutrophils/100 WBC (Bld) 71.9 % Normal [facility] Comment on above: Performed By: #### C BCDIF, BMP, MG1, PHOS ####[place] [address] [place] [phone] NRBCs 0.0 /100 WBC Normal 0 [facility] Comment on above: Performed By: #### C BCDIF, BMP, MG1, PHOS ####[place] [address] [address] [place] [phone] Platelet mean volume (Bld) [Entitic vol] 11.7 fL Normal 9.0-12.7 [facility] Comment on above: Performed By: #### C BCDIF, BMP, MG1, PHOS ####[facility] [address], [place] [phone] Platelets (Bld) [#/Vol] 219 10*3/uL Normal 150-400 [facility] Comment on above: Performed By: #### C BCDIF, BMP, MG1, PHOS ####[facility], [place] [phone] RBC (Bld) [#/Vol] 3.97 10*6/uL Normal 3.90-5.20 [facility] Comment on above: Performed By: #### C BCDIF, BMP, MG1, PHOS ####[facility], [place] [phone] WBC (Bld) [#/Vol] 7.10 10*3/uL Normal 3.70-11.00 [facility] Comment on above: Performed By: #### C BCDIF, BMP, MG1, PHOS ####[facility] [place], [place] [phone] CNDSon 07-23-2021 [facility] HNO ID: [id number] Author: Nazanin Pereira APRN.POST FORM REMOVER Service: General Surgery Author Type: Nurse Practitioner Type: Discharge Summary Filed: 07/23/2021 8:49 AM Note Text: Attestation signed by Elly Bliss MD at 07/24/2021 1:10 PM Patient seen and agree with above. .Elly Bliss MD GENERAL SURGERY DISCHARGE SUMMARY PATIENT NAME: Dianna Xiong ADMISSION DATE: 07/19/2021 DISCHARGE DATE: 07/23/21 ATTENDING PHYSICIAN: Elly Bliss MD Code Status: Not on file Highest Readmission Risk Score: 9 The 30 day readmissions risk score is derived from an internally validated risk model which evaluates patient level characteristics, utilization history, medication orders and lab results up until the day of discharge. Patients with a score of 40 or above are considered highest risk for readmission. Specific patient level drivers will be listed at the bottom of the summary. 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 She recovered on a RNF. She was treated with IV clindamycin for erythema around incision, and is being discharged on a 10 day course of oral clindamycin. She is being discharged on a Lovenox to warfarin bridge and will follow up closely with [facility], who manages her anticoagulation. On day of discharge she was tolerating a GIS diet, had ROBF, was voiding spontaneously, and pain was tolerable. She was discharged home with home PT/OT. Active Hospital Problems Diagnosis Date Noted - Infected hernioplasty mesh (HCC) 07/19/2021 - HTN (hypertension) 07/09/2021 - GWENDOLYN (obstructive sleep apnea) 07/09/2021 - Asthma 07/09/2021 - Morbid obesity with body mass index of 50.0-59.9 in adult (HCC) 06/01/2019 - Lumbosacral spondylosis without myelopathy 03/23/2018 Overview Note: Overview: Added automatically from request for surgery [id number] Resolved Hospital Problems No resolved problems to display. Transitions of Care Critical Issues: Follow up with [facility] upon discharge. Continue with 10 day course of oral Clindamycin LABS AND PROCEDURES PENDING AT DISCHARGE: No pending results. CONSULTING TEAMS DURING HOSPITALIZATION: None Treatment Team: Attending Provider: Elly Bliss MD PATIENT CONDITION AT DISCHARGE: Stable DISCHARGE DISPOSITION: Home with Home Health INFORMATION PROVIDED TO PATIENT: DCI DIET: Low soft-fiber diet: No fresh fruits, whole grains, foods difficult to digest, or vegetables (unless they are well-cooked) ACTIVITY: Lifting is restricted to: 10 lbs for 4-6 weeks May bathe and shower No walking restrictions No driving while on narcotics WOUND/SURGICAL SITE CARE: Leave open to air ALLERGIES Allergen Reactions - Cephalexin Monohydr* Other: See Comments Red all over - Furosemide Itching - Gabapentin Other: See Comments Weakness, Sob - Grass Pollen Other: See Comments - Hydrocodone Bitartr* Other: See Comments Extreme constipation - Latex Other: See Comments Added based on information entered during case entry, please review and add reactions, type, and severity as needed - Penicillins Other: See Comments Red all over - Ragweed Pollen Other: See Comments - Sulfa (Sulfonamide * Unknown - Topiramate Other: See Comments Difficulty breathing - Tramadol Mental Status Change - Cat Dander Swelling Swelling of eyes - Etodolac Other: See Comments Other reaction(s): Intolerance-unknown - Mold Itching DISCHARGE MEDICATION: Current Discharge Medication List START taking these medications lactobacillus rhamnosus (CULTURELLE) 1 capsule Take 1 capsule by mouth once daily. Qty: 14 capsule Refills: 0 clindamycin (CLEOCIN) 300 mg Take 300 mg by mouth four times daily. Qty: 40 capsule Refills: 0 acetaminophen (TYLENOL) 650 mg Take 650 mg by mouth every 6 hours as needed for pain. CONTINUE these medications which have CHANGED enoxaparin (LOVENOX) 40 mg Inject 40 mg subcutaneously every 12 hours. Qty: 11.2 mL Refills: 0 warfarin (COUMADIN) 5 mg Take 5 mg by mouth daily as directed. Qty: 14 tablet Refills: 0 CONTINUE these medications which have NOT CHANGED caitlin (more content not included)... Normal [facility] 07-23-2021 CNPN Telephone (GENHUYENN) DIANNA XIONG ([id number]) 1955 F Date Time Provider Department 07/23/21 ELLY BLISS During your visit today, we recorded the following information about you: Elly Bliss MD 07/23/2021 4:12 PM Signed Patient's pharmacy did not have lovenox and warfarin available today. She still has warfarin tablets at home. I advised her to take 10 mg warfarin tonight and resume 5 mg daily tomorrow. Elly Bliss MD Allergies As of Date: 07/23/2021 Noted Allergy Reaction CEPHALEXIN MONOHYDRATE 10/13/2013 14 - Other: See Comments Comments: Red all over FUROSEMIDE 04/03/2019 9 - Itching GABAPENTIN 10/13/2013 14 - Other: See Comments Comments: Weakness, Sob GRASS POLLEN 03/05/2018 14 - Other: See Comments HYDROCODONE BITARTRATE 10/13/2013 14 - Other: See Comments Comments: Extreme constipation LATEX 02/08/2018 14 - Other: See Comments Comments: Added based on information entered during case entry, please review and add reactions, type, and severity as needed PENICILLINS 10/13/2013 14 - Other: See Comments Comments: Red all over RAGWEED POLLEN 03/05/2018 14 - Other: See Comments SULFA (SULFONAMIDE ANTIBIOTICS) 10/13/2013 16 - Unknown TOPIRAMATE 10/13/2013 14 - Other: See Comments Comments: Difficulty breathing TRAMADOL 06/21/2019 1 - Mental Status Change CAT DANDER 10/27/2016 7 - Swelling Comments: Swelling of eyes ETODOLAC 10/22/2016 14 - Other: See Comments Comments: Other reaction(s): Intolerance-unknown MOLD 10/22/2016 9 - Itching Date Reviewed: 07/23/2021 Reviewed by: Selina Wyatt RN - Fully Assessed Reason for Visit: Medication Problem [65] Prescriptions as of 07/23/2021 - enoxaparin (LOVENOX) 40 mg/0.4 mL Inject 0.4 mL subcutaneously every 12 hours for 14 days. - warfarin (COUMADIN) 5 mg tablet Take 1 tablet by mouth daily as directed for 14 days. - lactobacillus rhamnosus (CULTURELLE) 10 billion cell capsule Take 1 capsule by mouth once daily for 14 days. - clindamycin (CLEOCIN) 300 mg capsule Take 1 capsule by mouth four times daily for 10 days. - acetaminophen (TYLENOL) 325 mg tablet Take 2 tablets by mouth every 6 hours as needed for pain. - ALBUTEROL INHALATION Inhale as instructed. - tiotropium bromide (SPIRIVA RESPIMAT) 1.25 mcg/actuation mist Inhale 1.25 mcg as instructed. - montelukast (SINGULAIR) 10 mg tablet Take 10 mg by mouth daily at bedtime. - propylene glycol (SYSTANE BALANCE) 0.6 % drop Use 1 Drop in the right eye. - omega-3 acid ethyl esters 1 gram capsule Take 2 g by mouth twice daily. - LUTEIN ORAL Take by mouth. - olopatadine (PATANOL) 0.1 % ophthalmic solution 1 Drop as needed. - hydroCHLOROthiazide (HYDRODIURIL, ESIDRIX) 12.5 mg tablet Take 12.5 mg by mouth. - TRIAMCINOLONE ACETONIDE (NASACORT NASAL) Use in the nose. - ESCITALOPRAM OXALATE (LEXAPRO ORAL) Take by mouth. - lansoprazole (PREVACID) 30 mg capsule Take by mouth. - Cholecalciferol, Vitamin D3, (VITAMIN D-3) 2,000 unit cap Take by mouth. Problem List As Of Date 07/23/2021 Noted Resolved Endometrial thickening on ultrasound [R93.89] 01/19/2017 Lumbar spondylosis [M47.816] 02/08/2018 Lumbosacral spondylosis without myelopathy [M47*03/23/2018 Uterine leiomyoma [D25.9] 01/19/2017 Thyroid nodule [E04.1] 03/29/2018 Morbid obesity (HCC) [E66.01] 03/29/2018 DVT (deep venous thrombosis) ([facility]) [I82.409] Morbid obesity with body mass index of 50.0-59.*06/01/2019 Post-operative state [Z98.890] 06/23/2019 Incisional hernia without obstruction or gangre*06/24/2019 06/24/2019 HTN (hypertension) [I10] 07/09/2021 GERD (gastroesophageal reflux disease) [K21.9] 07/09/2021 GWENDOLYN (obstructive sleep apnea) [G47.33] 07/09/2021 Abnormal stress test [R94.39] 07/09/2021 Asthma [J45.909] 07/09/2021 Infected hernioplasty mesh (HCC) [T85.79XA] 07/19/2021 07/23/2021 Lung disease [J98.4] 07/19/2021 Anticoagulated [Z79.01] 07/23/2021 Postoperative wound cellulitis [T81.49XA] 07/23/2021 Encounter Status:Closed by ELLY BLISS on 07/23/21 Normal [facility] Magnesiumon 07-23-2021 Magnesium [Mass/Vol] 1.9 mg/dL Normal 1.7-2.3 [facility] Comment on above: Performed By: #### C BCDIF, BMP, MG1, PHOS ####[facility] [address] [place], [place] [phone] Phosphoruson 07-23-2021 Phosphate [Mass/Vol] 3.3 mg/dL Normal 2.7-4.8 [facility] Comment on above: Performed By: #### C BCDIF, BMP, MG1, PHOS ####[facility] [address] [place], [place] [phone] Protimeon 07-23-2021 PT INR 1.0 Normal 0.9-1.3 [facility] Comment on above: Result Comment: Liz min K Antagonist (VKA) Therapeutic Range: INR 2 to 3 (Target INR of 2.5) Note: For patients treated with VKA drugs, such as warfarin, the [place] [employer] 2012 Guideline recommends a therapeutic INR range of 2 to 3 (target INR of 2.5). This recommendation includes high-risk patients with antiphospholipid syndrome with previous arterial or venous thromboembolism, current-generation mechanical or bioprosthetic aortic heart valve replacement. Note: Patients with mechanical aortic valve replacement and additional risk factors for thromboembolic events (atrial fibrillation, previous thromboembolism, LV dysfunction, hypercoagulable conditions) or an older generation mechanical AVR (i.e., ball in-Cage) or any mechanical MVR should have a INR therapeutic range of 2.5 to 3.5 (target INR of 3). Maylin GH, et al. Chest 2012, 141:7S-47S Yanique RA, et al. [facility] 2017, 70: 252-289 Performed By: #### P T ####[facility] [address] [place], [place] [phone] PT Sec 10.7 sec Normal 9.7-13.0 [facility] Comment on above: Performed By: #### P T ####[address] [phone] THERAPY NTon 07-23-2021 THERAPY NT HNO ID: [id number] Author: Jerson Suarez PT Service: Physical Therapy Author Type: Physical Therapist Type: Therapy (PT/OT/Speech/Resp) Filed: 07/23/2021 11:03 AM Note Text: PHYSICAL THERAPY MISSED VISIT SERVICE DATE: 07/23/2021 SERVICE TIME: 1048 to 1053 ROOM: [place] [address] Attempted Treatment. Patient not seen due to Declined. Pt states she is going home today, declines offer to complete stairs training, stating that she will be okay. SIGNATURE: Jerson Suarez PT PATIENT NAME: Dianna Xiong DATE: July 23, 2021 TIME: 11:03 AM Normal [facility] Basic Metabolic Panlon 07-22 Anion gap [Moles/Vol] 8 mmol/L Low 9-18 [facility] Comment on above: Performed By: #### C BCDIF, BMP, MG1, PHOS ####[facility] [address] [place], [place] [phone] Calcium [Mass/Vol] 9.3 mg/dL Normal 8.5-10.2 [facility] Comment on above: Performed By: #### C BCDIF, BMP, MG1, PHOS ####[place] [address] [address] [place] [phone] Chloride [Moles/Vol] 107 mmol/L High 97-105 [facility] Comment on above: Performed By: #### C BCDIF, BMP, MG1, PHOS ####[place] [address] [address] [place] [phone] CO2 [Moles/Vol] 27 mmol/L Normal 22-30 [facility] Comment on above: Performed By: #### C BCDIF, BMP, MG1, PHOS ####[place] [address] [address] [place] [phone] Creatinine [Mass/Vol] 1.18 mg/dL High 0.58-0.96 [facility] Comment on above: Performed By: #### C BCDIF, BMP, MG1, PHOS ####[place] [address] [address] [place] [phone] eGFR- Amer. 55 Normal [facility] Comment on above: Performed By: #### C BCDIF, BMP, MG1, PHOS ####[place] [address] [address] [place] [phone] eGFR-All Other Races 46 . Normal [facility] Comment on above: Result Comment: eGFR (Estimated GFR) Units of measure: mL/min/1.73 meters squared eGFR is derived from the reexpressed MDRD Study equation using the following parameters: serum creatinine, age, gender and race. The creatinine assay has been calibrated to be traceable to IDMS. An eGFR <60 mL/min/1.73m2 for >3 months is consistent with chronic kidney disease. Refer to KDOQI guidelines for clinical interpretation. In patients with unstable renal function, e.g. those with acute kidney injury, the eGFR may not accurately reflect actual GFR. Note: On 08/17/2021, the eGFR calculation will be updated to the NKF-ASN Task Force recommended 2020 CKD-EPI creatinine equation which does not include a race variable. For more information or to access a 2020 CKD-EPI calculator, visit the National Kidney Foundation website at kidney.org/professionals/kdoqi/gfr_calculator. Performed By: #### C BCDIF, BMP, MG1, PHOS ####[facility], [place] [phone] Glucose [Mass/Vol] 119 mg/dL High 74-99 [facility] Comment on above: Result Comment: The [place] Diabetes Association (ADA) provides guidance for cutoff values for fasting glucose and random glucose. The ADA defines fasting as no caloric intake for at least 8 hours. Fasting plasma glucose results between 100 to 125 mg/dL indicate increased risk for diabetes (prediabetes). Fasting plasma glucose results greater than or equal to 126 mg/dL meet the criteria for diagnosis of diabetes. In the absence of unequivocal hyperglycemia, results should be confirmed by repeat testing. In a patient with classic symptoms of hyperglycemia or hyperglycemic crisis, random plasma glucose results greater than or equal to 200 mg/dL meet the criteria for diagnosis of diabetes. Reference: Standards of Medical Care in Diabetes 2016, [place] [employer]. Diabetes Care. 2016.39(Suppl 1). Performed By: #### C BCDIF, BMP, MG1, PHOS ####[facility], [place] [phone] Potassium [Moles/Vol] 4.2 mmol/L Normal 3.7-5.1 [facility] Comment on above: Performed By: #### C BCDIF, BMP, MG1, PHOS ####[facility] [address] [place], [place] [phone] Sodium [Moles/Vol] 142 mmol/L Normal 136-144 [facility] Comment on above: Performed By: #### C BCDIF, BMP, MG1, PHOS ####[facility], [place] [phone] Urea nitrogen [Mass/Vol] 19 mg/dL Normal 7-21 [facility] Comment on above: Performed By: #### C BCDIF, BMP, MG1, PHOS ####[facility], [place] [phone] CASE MANAGEMon 07-22-2021 CASE MANAGEM HNO ID: [id number] Author: RICKY Allan Service: Case Management Author Type: Industrial Waste Treatment Technician Type: Care Mgt Progress Note Filed: 07/22/2021 4:08 PM Note Text: CARE MANAGEMENT PROGRESS NOTE SERVICE DATE: 07/22/2021 SERVICE TIME: 3:58 PM LOS: 3 days Needs Prior to Discharge: To Be Determined Patient was rec's for Home PT/OT. Patient did not have a preference for HC choices. Referrals sent to HC agencies. [facility] is accepting HC agency. CM notified [facility] that they are FOC. Patient is anticipated to be discharged tomorrow. SIGNATURE: RICKY Allan PATIENT NAME: Dianna Xiong DATE: July 22, 2021 TIME: 3:58 PM PAGER/CONTACT #: [phone] Normal [facility] CBC and Differentialon 07-22 Abs Baso 0.03 k/uL Normal <0.11 [facility] Comment on above: Performed By: #### C BCDIF, BMP, MG1, PHOS ####[facility], [place] [phone] Abs Cassia 0.68 k/uL Normal <0.87 [facility] Comment on above: Performed By: #### C BCDIF, BMP, MG1, PHOS ####[facility] [address], [place] [phone] Abs Neut 5.77 k/uL Normal 1.45-7.50 [facility] Comment on above: Performed By: #### C BCDIF, BMP, MG1, PHOS ####[facility] [address] [place], [place] [phone] Absolute nRBC <0.01 Normal <0.01 [facility] Comment on above: Performed By: #### C BCDIF, BMP, MG1, PHOS ####[facility] AveClevelBrandon Ville [phone] Basophils/100 WBC (Bld) 0.4 % Normal [facility] Comment on above: Performed By: #### C BCDIF, BMP, MG1, PHOS ####[place] [address] [address]ClevelBrandon [place]ille [phone] DTYPE Auto Diff Normal [facility] Comment on above: Performed By: #### C BCDIF, BMP, MG1, PHOS ####[place] [address] [address]ClevelBr[address] [place] [phone] Eosinophils (Bld) [#/Vol] 0.26 10*3/uL Normal <0.46 [facility] Comment on above: Performed By: #### C BCDIF, BMP, MG1, PHOS ####[place] [address] [address]ClevelBr[address] [place] [phone] Eosinophils/100 WBC (Bld) 3.3 % Normal [facility] Comment on above: Performed By: #### C BCDIF, BMP, MG1, PHOS ####[place] [address] [address]CS[address] [place] [phone] Erythrocyte distribution width (RBC) [Ratio] 15.1 % High 11.5-15.0 [facility] Comment on above: Performed By: #### C BCDIF, BMP, MG1, PHOS ####[facility]ClevelandJorge [place]ille [phone] Hematocrit (Bld) [Volume fraction] 39.5 % Normal 36.0-46.0 [facility] Comment on above: Performed By: #### C BCDIF, BMP, MG1, PHOS ####[facility]ClevelandJorge [place] [phone] Hemoglobin (Bld) [Mass/Vol] 12.3 g/dL Normal 11.5-15.5 [facility] Comment on above: Performed By: #### C BCDIF, BMP, MG1, PHOS ####[place] [address] [address], [place] [phone] Lymphocytes (Bld) [#/Vol] 1.15 10*3/uL Normal 1.00-4.00 [facility] Comment on above: Performed By: #### C BCDIF, BMP, MG1, PHOS ####[place] [address] [address]CF[address], [place] [phone] Lymphocytes/100 WBC (Bld) 14.6 % Normal [facility] Comment on above: Performed By: #### C BCDIF, BMP, MG1, PHOS ####[address]CStephen Ville [phone] MCH 29.8 pG Normal 26.0-34.0 [facility] Comment on above: Performed By: #### C BCDIF, BMP, MG1, PHOS ####[place] [address] [address] [place] [phone] MCHC (RBC) [Mass/Vol] 31.1 g/dL Normal 30.5-36.0 [facility] Comment on above: Performed By: #### C BCDIF, BMP, MG1, PHOS ####[place] [address] [address], [place] [phone] MCV (RBC) [Entitic vol] 95.6 fL Normal 80.0-100.0 [facility] Comment on above: Performed By: #### C BCDIF, BMP, MG1, PHOS ####[place] [address] [address], [place] [phone] Monocytes/100 WBC (Bld) 8.6 % Normal [facility] Comment on above: Performed By: #### C BCDIF, BMP, MG1, PHOS ####[facility], [place] [phone] Neutrophils/100 WBC (Bld) 73.1 % Normal [facility] Comment on above: Performed By: #### C BCDIF, BMP, MG1, PHOS ####[facility], [place] [phone] NRBCs 0.0 /100 WBC Normal 0 [facility] Comment on above: Performed By: #### C BCDIF, BMP, MG1, PHOS ####[place] [address] [address], [place] [phone] Platelet mean volume (Bld) [Entitic vol] 12.0 fL Normal 9.0-12.7 [facility] Comment on above: Performed By: #### C BCDIF, BMP, MG1, PHOS ####[place] [address] [address], [place] [phone] Platelets (Bld) [#/Vol] 196 10*3/uL Normal 150-400 [facility] Comment on above: Performed By: #### C BCDIF, BMP, MG1, PHOS ####[facility], [place] [phone] RBC (Bld) [#/Vol] 4.13 10*6/uL Normal 3.90-5.20 [facility] Comment on above: Performed By: #### C BCDIF, BMP, MG1, PHOS ####[facility]CF[address], [place] [phone] WBC (Bld) [#/Vol] 7.89 10*3/uL Normal 3.70-11.00 [facility] Comment on above: Performed By: #### C BCDIF, BMP, MG1, PHOS ####[place] [address] [address], [place] [phone] Magnesiumon 07-22-2021 Magnesium [Mass/Vol] 2.0 mg/dL Normal 1.7-2.3 [facility] Comment on above: Performed By: #### C BCDIF, BMP, MG1, PHOS ####[facility] [address] [place], [place] [phone] Phosphoruson 07-22-2021 Phosphate [Mass/Vol] 3.1 mg/dL Normal 2.7-4.8 [facility] Comment on above: Performed By: #### C BCDIF, BMP, MG1, PHOS ####[facility] [address], [place] [phone] THERAPY NTon 07-22-2021 THERAPY NT HNO ID: [id number] Author: Jerson Suarez, PT Service: Physical Therapy Author Type: Physical Therapist Type: Therapy (PT/OT/Speech/Resp) Filed: 07/22/2021 12:03 PM Note Text: Physical Therapy Treatment SERVICE DATE: 07/22/2021 SERVICE TIME: 1117 to 1150 ROOM: [place] [address] Recommended Discharge Disposition: Home PT Recommended Discharge Disposition Comments: with adequate assistance at home, pt functionally approprite for home with home health services. Pt will require physical assist with IADL tasks to safely maintain precautions Anticipated Discharge Needs: Physical Assist at Home Physical Assist at Home for: Cleaning;Laundry;Meals; Safety;Self Care;Shopping;Transport ation Recommended Discharge Equipment: To Be Determined Assessment: pt with significant improvements in overall tolerance and quality of movement with session today. Pt reports of SOB post amb, recovers with seated rest break and breathing techniques. PT will continue to advance as tolerated. Vital Signs Pre SpO2: 94 Pre O2 Equipment: Room Air Intra SpO2 1: 85 Intra O2 Equipment 1: Room Air Intra SpO2 2: 91 Intra O2 Equipment 2: Room Air Intra Oxygen Requirement 2: - Post SpO2: 93 Post O2 Equipment: Room Air PT 6 Clicks Score: 23 Precautions/Activity Restrictions: Abdominal Precaution/Activity Restriction Comments: binder with OOB mobility Current Hospital Course: Pt is 66 year old female who reports to for consultation of hernia. Pt underwent hernia mesh repair 07/19/21, currently POD 1, on RNF for further management. Reason for Hospital Admission: pre op consultation Response to Therapy Interventions: Good participation in activities,Improved tolerance for activity,Notable progression with functional activities/skills Continue skilled needs due to: Continued monitoring of vital signs during mobility required,Functional mobility/skill impairments Physical Therapy Problem List: Pain;Impaired Self Care;Decreased Activity Tolerance;Functional Mobility Impairment Treatment Interventions: Education;Self Care / Home Management;Energy Conservation Training;Joint Mobility;Strengthening; Functional Mobility Training;Balance Training Plan for next visit: Gait training,Exercise instruction/handout,Sta irs training Home Environment Patient Lives With: Self/Alone (Sister to stay with her at discharge) Assistance Available: PRN Entry To Home: Stairs;With Rail Number Of Stairs Into Home: 3 Number Of Stairs To Bed/Bath: 0 Tub/Shower Type: walk-in shower with bench and grab bars Laundry: in basement - 12 stairs, no railing Equipment Owned: Standard Walker;Shower Chair;Grab Bars-Shower;Cane;Elevat ed Toilet Seat;Sock Aid;Photo Colorer Prior Functional Level: Within Functional Limits Prior Functional Level Comments: Pt reports IND with all ADL/IADL tasks; Occasional assistance from family members; No use of AD for functional mobility; Denies falls Patient Report: Vicky been getting up and walking. CURRENT FUNCTIONAL STATUS: Most recent performance Current Functional Mobility Assist Level Additional Information Rolling Stand By Assistance Supine to Sit Stand By Assistance Sit to Supine Stand By Assistance Scooting Stand By Assistance Sit to Stand Supervision Stand to Sit Supervision Bed to Chair Toilet/Commode Gait Supervision Gait Device: Wheeled Walker Gait Distance (feet): 100', 15' Stairs Curb Step Car Transfer Blank wiley indicate activity not attempted General Deviations/Observations : Jerri decreased;Flexed trunk posture Balance: Static Sitting;Dynamic Sitting;Static Standing;Dynamic Standing Static Sitting Balance: Good Patient able to maintain balance without handhold support, limited postural sway Dynamic Sitting Balance: Good Patient accepts moderate challenge, able to maintain balance while picking up object off floor Static Standing Balance: Good Patient able to maintain balance without handhold support, limited postural sway Dynamic Standing Balance: Fair Patient accepts minimal challenge, able to maintain balance while turning head/trunk -HLM: 7: Walk 25 feet or more Learning/Educational Needs: Discharge Plan;Disease Process;Equipment;Famil y Education/Training;Func tional Activities/Mobility;Simon n Management;Plan of Care;Changes in Plan of Care;Precautions;PT In-Hospital Exercise Program;Rehabilitation Techniques and Procedures;Respiratory Function;Safety Goals for Plan of Care: Patient /Caregiver Goals: Walk;Go Home Goals: Patient will demonstrate progress with functional mobility to allow safe discharge to home with available support and/or physical assistance. Ambulate with: Modified Independent Distance: 75' Device: Wheeled Walker Ambulate up and down steps with: Stand By Assistance Number of steps: 2 Device: Rail Progress Toward Goals: Progressing as expected Rehab Potential: Excellent Patient will be discontinued from Physical Thera (more content not included)... Normal [facility] Basic Metabolic Panlon 07-21 Anion gap [Moles/Vol] 9 mmol/L Normal 9-18 [facility] Comment on above: Performed By: #### P HOS, MG1, BMP, CBCDIF ####[place] [phone] Calcium [Mass/Vol] 9.3 mg/dL Normal 8.5-10.2 [facility] Comment on above: Performed By: #### P HOS, MG1, BMP, CBCDIF ####[facility] [place] [phone] Chloride [Moles/Vol] 104 mmol/L Normal 97-105 [facility] Comment on above: Performed By: #### P HOS, MG1, BMP, CBCDIF ####[facility] [place] [phone] CO2 [Moles/Vol] 29 mmol/L Normal 22-30 [facility] Comment on above: Performed By: #### P HOS, MG1, BMP, CBCDIF ####[facility] [place] [phone] Creatinine [Mass/Vol] 1.29 mg/dL High 0.58-0.96 [facility] Comment on above: Performed By: #### P HOS, MG1, BMP, CBCDIF ####[address] [phone] eGFR- Amer. 50 Normal [facility] Comment on above: Performed By: #### P HOS MG1, BMP, CBCDIF ####[address] [phone] eGFR-All Other Races 41 . Normal [facility] Comment on above: Result Comment: eGFR (Estimated GFR) Units of measure: mL/min/1.73 meters squared eGFR is derived from the reexpressed MDRD Study equation using the following parameters: serum creatinine, age, gender and race. The creatinine assay has been calibrated to be traceable to IDMS. An eGFR <60 mL/min/1.73m2 for >3 months is consistent with chronic kidney disease. Refer to KDOQI guidelines for clinical interpretation. In patients with unstable renal function, e.g. those with acute kidney injury, the eGFR may not accurately reflect actual GFR. Note: On 08/17/2021, the eGFR calculation will be updated to the NKF-ASN Task Force recommended 2020 CKD-EPI creatinine equation which does not include a race variable. For more information or to access a 2020 CKD-EPI calculator, visit the National Kidney Foundation website at kidney.org/professionals/kdoqi/gfr_calculator. Performed By: #### P HOS, MG1, BMP, CBCDIF ####[facility] [place], [place] [phone] Glucose [Mass/Vol] 118 mg/dL High 74-99 [facility] Comment on above: Result Comment: The [place] Diabetes Association (ADA) provides guidance for cutoff values for fasting glucose and random glucose. The ADA defines fasting as no caloric intake for at least 8 hours. Fasting plasma glucose results between 100 to 125 mg/dL indicate increased risk for diabetes (prediabetes). Fasting plasma glucose results greater than or equal to 126 mg/dL meet the criteria for diagnosis of diabetes. In the absence of unequivocal hyperglycemia, results should be confirmed by repeat testing. In a patient with classic symptoms of hyperglycemia or hyperglycemic crisis, random plasma glucose results greater than or equal to 200 mg/dL meet the criteria for diagnosis of diabetes. Reference: Standards of Medical Care in Diabetes 2016, [place] [employer]. Diabetes Care. 2016.39(Suppl 1). Performed By: #### P HOS, MG1, BMP, CBCDIF ####[address], [place] [phone] Potassium [Moles/Vol] 4.6 mmol/L Normal 3.7-5.1 [facility] Comment on above: Performed By: #### P HOS, MG1, BMP, CBCDIF ####[place] [phone] Sodium [Moles/Vol] 142 mmol/L Normal 136-144 [facility] Comment on above: Performed By: #### P HOS, MG1, BMP, CBCDIF ####[place] [phone] Urea nitrogen [Mass/Vol] 17 mg/dL Normal 7-21 [facility] Comment on above: Performed By: #### P HOS, MG1, BMP, CBCDIF ####[place] [phone] CBC and Differentialon 07-21 Abs Baso 0.04 k/uL Normal <0.11 [facility] Comment on above: Performed By: #### P HOS, MG1, BMP, CBCDIF ####[address] [place] [phone] Abs Cassia 0.88 k/uL High <0.87 [facility] Comment on above: Performed By: #### P HOS, MG1, BMP, CBCDIF ####[address] [place] [phone] Abs Neut 6.54 k/uL Normal 1.45-7.50 [facility] Comment on above: Performed By: #### P HOS, MG1, BMP, CBCDIF ####[address] AveCStephen [address]ille [phone] Absolute nRBC <0.01 Normal <0.01 [facility] Comment on above: Performed By: #### P HOS, MG1, BMP, CBCDIF ####[place] [address]CSte[address] [place] [phone] Basophils/100 WBC (Bld) 0.5 % Normal [facility] Comment on above: Performed By: #### P HOS, MG1, BMP, CBCDIF ####[place] [address] [address] [place] [phone] DTYPE Auto Diff Normal [facility] Comment on above: Performed By: #### P HOS, MG1, BMP, CBCDIF ####[place] [address] [address] [place] [phone] Eosinophils (Bld) [#/Vol] 0.16 10*3/uL Normal <0.46 [facility] Comment on above: Performed By: #### P HOS, MG1, BMP, CBCDIF ####[place] [address] [address] [place] [phone] Eosinophils/100 WBC (Bld) 1.9 % Normal [facility] Comment on above: Performed By: #### P HOS, MG1, BMP, CBCDIF ####[place] [address] [address] [place] [phone] Erythrocyte distribution width (RBC) [Ratio] 15.3 % High 11.5-15.0 [facility] Comment on above: Performed By: #### P HOS, MG1, BMP, CBCDIF ####[place] [address] [address] [place] [phone] Hematocrit (Bld) [Volume fraction] 40.5 % Normal 36.0-46.0 [facility] Comment on above: Performed By: #### P HOS, MG1, BMP, CBCDIF ####[place] [address] [address] [place] [phone] Hemoglobin (Bld) [Mass/Vol] 12.5 g/dL Normal 11.5-15.5 [facility] Comment on above: Performed By: #### P HOS, MG1, BMP, CBCDIF ####[address], [place] [phone] Lymphocytes (Bld) [#/Vol] 1.01 10*3/uL Normal 1.00-4.00 [facility] Comment on above: Performed By: #### P HOS, MG1, BMP, CBCDIF ####[place] [address] [address] [place] [phone] Lymphocytes/100 WBC (Bld) 11.7 % Normal [facility] Comment on above: Performed By: #### P HOS, MG1, BMP, CBCDIF ####[place] [phone] MCH 29.8 pG Normal 26.0-34.0 [facility] Comment on above: Performed By: #### P HOS, MG1, BMP, CBCDIF ####[place] [phone] MCHC (RBC) [Mass/Vol] 30.9 g/dL Normal 30.5-36.0 [facility] Comment on above: Performed By: #### P HOS, MG1, BMP, CBCDIF ####[address] [place] [phone] MCV (RBC) [Entitic vol] 96.4 fL Normal 80.0-100.0 [facility] Comment on above: Performed By: #### P HOS, MG1, BMP, CBCDIF ####[place] [address] [address], [place] [phone] Monocytes/100 WBC (Bld) 10.2 % Normal [facility] Comment on above: Performed By: #### P HOS, MG1, BMP, CBCDIF ####[facility], [place] [phone] Neutrophils/100 WBC (Bld) 75.7 % Normal [facility] Comment on above: Performed By: #### P HOS, MG1, BMP, CBCDIF ####[place] [address] [address], [place] [phone] NRBCs 0.0 /100 WBC Normal 0 [facility] Comment on above: Performed By: #### P HOS, MG1, BMP, CBCDIF ####[place] [address] [address], [place] [phone] Platelet mean volume (Bld) [Entitic vol] 12.0 fL Normal 9.0-12.7 [facility] Comment on above: Performed By: #### P HOS, MG1, BMP, CBCDIF ####[place] [address] [address], [place] [phone] Platelets (Bld) [#/Vol] 173 10*3/uL Normal 150-400 [facility] Comment on above: Performed By: #### P HOS, MG1, BMP, CBCDIF ####[place] [address] [address], [place] [phone] RBC (Bld) [#/Vol] 4.20 10*6/uL Normal 3.90-5.20 [facility] Comment on above: Performed By: #### P HOS, MG1, BMP, CBCDIF ####[facility], [place] [phone] WBC (Bld) [#/Vol] 8.63 10*3/uL Normal 3.70-11.00 [facility] Comment on above: Performed By: #### P HOS, MG1, BMP, CBCDIF ####[place] [address] [address], [place] [phone] Magnesiumon 07-21-2021 Magnesium [Mass/Vol] 1.9 mg/dL Normal 1.7-2.3 [facility] Comment on above: Performed By: #### P HOS, MG1, BMP, CBCDIF ####[facility] [address] [place], [place] [phone] Phosphoruson 07-21-2021 Phosphate [Mass/Vol] 2.5 mg/dL Low 2.7-4.8 [facility] Comment on above: Performed By: #### P HOS, MG1, BMP, CBCDIF ####[facility] [address] [place], [place] [phone] THERAPY NTon 07-21-2021 THERAPY NT HNO ID: [id number] Author: Oralia Rubin OT/L Service: Occupational Therapy Author Type: Occupational Therapist Type: Therapy (PT/OT/Speech/Resp) Filed: 07/21/2021 12:16 PM Note Text: Occupational Therapy Evaluation SERVICE DATE: 07/21/2021 SERVICE TIME: 1057 to 1156 ROOM: [place] [address] Recommended Discharge Disposition: Home OT Recommended Discharge Disposition Comments: Pt will require physical assist with IADL tasks in order to safely maintain precautions; Would benefit from home health services Anticipated Discharge Needs: Physical Assist at Home Physical Assist at Home for: Cleaning;Laundry;Meals; Safety;Self Care;Shopping;Transport ation OT 6 Clicks Score: 18 Precautions/Activity Restrictions: Abdominal Precaution/Activity Restriction Comments: binder with OOB mobility Current Hospital Course: Pt is 66 year old female who reports to [facility] for consultation of hernia. Pt underwent hernia mesh repair 07/19/21, currently POD 1, on RNF for further management. Reason for Hospital Admission: pre op consultation Response to Therapy Interventions: Good participation in activities,Improved tolerance for activity,Labile vital signs Continue skilled needs due to: Continued monitoring of vital signs during mobility required,Functional impairment Occupational Therapy Problem List: Pain;Impaired Self Care;Decreased Activity Tolerance;Functional Mobility Impairment Cognition/Communication Deficits Responsiveness: Alert,Awake Follows Commands: 3-step Commands Executive Function Deficits: Safety Awareness Safety Awareness Deficit: Minimal impairment Cognitive Clinical Tests and Screens: 4AT Screening 4AT Screening Assess alertness (ask patient to state their name and address): Normal (fully alert, but not agitated, throughout assessment) Ask patient: age, date of , current year, and current location: No mistakes Ask patient to tell me the months of the year backwards order, starting with May : Able to state 7+ months correctly Acute change or fluctuating mental status: No 4AT Score: 0 Delirium Positive/Negative: Negative Treatment Interventions: Education;Self Care / Home Management;Energy Conservation Training;Functional Mobility Training Plan for next visit: Bed mobility,Chair/commode transfer training,Dressing training,Energy conservation,Positionin g training,Sit to stand transfers,Standing tolerance,Toileting instruction Home Environment Patient Lives With: Self/Alone (Sister to stay with her at discharge) Assistance Available: PRN Entry To Home: Stairs;With Rail Number Of Stairs Into Home: 3 Number Of Stairs To Bed/Bath: 0 Tub/Shower Type: walk-in shower with bench and grab bars Laundry: in basement - 12 stairs, no railing Equipment Owned: Standard Walker;Shower Chair;Grab Bars-Shower;Cane;Elevat ed Toilet Seat;Sock Aid;Photo Colorer Prior Functional Level: Within Functional Limits Prior Functional Level Comments: Pt reports IND with all ADL/IADL tasks; Occasional assistance from family members; No use of AD for functional mobility; Denies falls Patient Report: I want to get up and walk CURRENT FUNCTIONAL STATUS: Most recent performance Current Activities of Daily Living Assist Level Additional Information Feeding Set Up Grooming Set Up Bathing Upper Body Set Up Bathing Lower Body Moderate Assistance Dressing Upper Body Minimal Assistance Dressing Lower Body Moderate Assistance Toileting Minimal Assistance Instrumental Activities of Daily Living Assist Level Additional Information Meal/Beverage Prep Cleaning Laundry Medication Management with Strategies Functional Mobility Assist Level Additional Information Rolling Supine to Sit Pt in bedside chair upon therapist arrival. Sit to Supine Scooting Sit to Stand Contact Guard Assistance Stand to Sit Stand By Assistance Bed to Chair Toilet/Commode Shower Functional Mobility Contact Guard Assistance Wheeled Walker Pt required verbal cues to maintain safe use of wheeled walker. Blank wiley indicate activity not attempted Vital Signs Pre Assessment: SpO2,Heart Rate Pre Heart Rate: 90 Pre SpO2: 95 Intra Assessment 1: SpO2 Intra 1,Heart Rate Intra 1 Intra Heart Rate 1: 93 Intra SpO2 1: 87 Post Assessment: SpO2 Post,Heart Rate Post Post Heart Rate: 95 Post SpO2: 90 RN aware. Learning/Educational Needs: Discharge Plan;Disease Process;Equipment;Funct ional Activities/Mobility;Radha n of Care;Precautions;Rehabi litation Techniques and Procedures;Safety;Self Care Goals for Plan of Care: Patient /Caregiver Goals: Go Home Goals: Patient will demonstrate progress with self-care, cognitive and/or coping needs identified to allow safe discharge to home with available support and/or physical assistance. Progress Toward Goals: Progressing as expected Rehab Potential: Good Patient will be discontinued from Occupational Therapy when no further skilled needs are identified (more content not included)... Normal [facility] Basic Metabolic Panlon 07-20 Anion gap [Moles/Vol] 9 mmol/L Normal 9-18 [facility] Comment on above: Performed By: #### B MP, PHOS, CBCDIF, MG1 ####[facility] [place] [phone] Calcium [Mass/Vol] 9.2 mg/dL Normal 8.5-10.2 [facility] Comment on above: Performed By: #### B MP, PHOS, CBCDIF, MG1 ####[facility] [place] [phone] Chloride [Moles/Vol] 106 mmol/L High 97-105 [facility] Comment on above: Performed By: #### B MP, PHOS, CBCDIF, MG1 ####[facility] [place] [phone] CO2 [Moles/Vol] 28 mmol/L Normal 22-30 [facility] Comment on above: Performed By: #### B MP, PHOS, CBCDIF, MG1 ####[facility] [place] [phone] Creatinine [Mass/Vol] 0.96 mg/dL Normal 0.58-0.96 [facility] Comment on above: Performed By: #### B MP, PHOS, CBCDIF, MG1 ####[facility], [place] [phone] eGFR- Amer. >60 Normal [facility] Comment on above: Performed By: #### B DEMETRI KAN CBCDIF, MG1 ####[facility] [place], [place] [phone] eGFR-All Other Races 58 . Normal [facility] Comment on above: Result Comment: eGFR (Estimated GFR) Units of measure: mL/min/1.73 meters squared eGFR is derived from the reexpressed MDRD Study equation using the following parameters: serum creatinine, age, gender and race. The creatinine assay has been calibrated to be traceable to IDMS. An eGFR <60 mL/min/1.73m2 for >3 months is consistent with chronic kidney disease. Refer to KDOQI guidelines for clinical interpretation. In patients with unstable renal function, e.g. those with acute kidney injury, the eGFR may not accurately reflect actual GFR. Note: On 08/17/2021, the eGFR calculation will be updated to the NKF-ASN Task Force recommended 2020 CKD-EPI creatinine equation which does not include a race variable. For more information or to access a 2020 CKD-EPI calculator, visit the National Kidney Foundation website at kidney.org/professionals/kdoqi/gfr_calculator. Performed By: #### B DEMETRI KAN CBCDIF, MG1 ####[facility] [place], [place] [phone] Glucose [Mass/Vol] 113 mg/dL High 74-99 [facility] Comment on above: Result Comment: The [place] Diabetes Association (ADA) provides guidance for cutoff values for fasting glucose and random glucose. The ADA defines fasting as no caloric intake for at least 8 hours. Fasting plasma glucose results between 100 to 125 mg/dL indicate increased risk for diabetes (prediabetes). Fasting plasma glucose results greater than or equal to 126 mg/dL meet the criteria for diagnosis of diabetes. In the absence of unequivocal hyperglycemia, results should be confirmed by repeat testing. In a patient with classic symptoms of hyperglycemia or hyperglycemic crisis, random plasma glucose results greater than or equal to 200 mg/dL meet the criteria for diagnosis of diabetes. Reference: Standards of Medical Care in Diabetes 2016, [place] Diabetes Association. Diabetes Care. 2016.39(Suppl 1). Performed By: #### B MP, PHOS, CBCDIF, MG1 ####[facility] [address]CFair[address], [place] [phone] Potassium [Moles/Vol] 4.7 mmol/L Normal 3.7-5.1 [facility] Comment on above: Performed By: #### B MP, PHOS, CBCDIF, MG1 ####[place] [address]CStephen [place] [phone] Sodium [Moles/Vol] 143 mmol/L Normal 136-144 [facility] Comment on above: Performed By: #### B MP, PHOS, CBCDIF, MG1 ####[place] [address], [place] [phone] Urea nitrogen [Mass/Vol] 16 mg/dL Normal 7-21 [facility] Comment on above: Performed By: #### B MP, PHOS, CBCDIF, MG1 ####[place] [address] [place] [phone] CBC and Differentialon 07-20 Abs Baso <0.03 Normal <0.11 [facility] Comment on above: Performed By: #### B MP, PHOS, CBCDIF, MG1 ####[place] [address]CStephen [place] [phone] Abs Eosin <0.03 Normal <0.46 [facility] Comment on above: Performed By: #### B MP, PHOS, CBCDIF, MG1 ####[place] [address]CS[address] [place] [phone] Abs Cassia 0.99 k/uL High <0.87 [facility] Comment on above: Performed By: #### B MP, PHOS, CBCDIF, MG1 ####[place] [address]CF[address], [place] [phone] Abs Neut 6.99 k/uL Normal 1.45-7.50 [facility] Comment on above: Performed By: #### B MP, PHOS, CBCDIF, MG1 ####[facility]leveland[address] [place] [phone] Absolute nRBC <0.01 Normal <0.01 [facility] Comment on above: Performed By: #### B MP, PHOS, CBCDIF, MG1 ####[place] [address]leveland[address] [place] [phone] Basophils/100 WBC (Bld) 0.2 % Normal [facility] Comment on above: Performed By: #### B MP, PHOS, CBCDIF, MG1 ####[place] [address]ClevelBr[address] [place] [phone] DTYPE Auto Diff Normal [facility] Comment on above: Performed By: #### B MP, PHOS, CBCDIF, MG1 ####[place] [address]level[address] [place] [phone] Eosinophils/100 WBC (Bld) 0.1 % Normal [facility] Comment on above: Performed By: #### B MP, PHOS, CBCDIF, MG1 ####[place] [address]leveland[address] [place] [phone] Erythrocyte distribution width (RBC) [Ratio] 14.9 % Normal 11.5-15.0 [facility] Comment on above: Performed By: #### B MP, PHOS, CBCDIF, MG1 ####[facility] [place] [phone] Hematocrit (Bld) [Volume fraction] 40.3 % Normal 36.0-46.0 [facility] Comment on above: Performed By: #### B MP, PHOS, CBCDIF, MG1 ####[facility] [place] [phone] Hemoglobin (Bld) [Mass/Vol] 12.7 g/dL Normal 11.5-15.5 [facility] Comment on above: Performed By: #### B MP, PHOS, CBCDIF, MG1 ####[facility]ClevelSpring [address], [place] [phone] Lymphocytes (Bld) [#/Vol] 0.97 10*3/uL Low 1.00-4.00 [facility] Comment on above: Performed By: #### B MP, PHOS, CBCDIF, MG1 ####[place] [address]ClevelandHen[place], [place] [phone] Lymphocytes/100 WBC (Bld) 10.8 % Normal [facility] Comment on above: Performed By: #### B MP, PHOS, CBCDIF, MG1 ####[place] [address]level[address] [place] [phone] MCH 29.6 pG Normal 26.0-34.0 [facility] Comment on above: Performed By: #### B MP, PHOS, CBCDIF, MG1 ####[facility]ClevelSpring [address], [place] [phone] MCHC (RBC) [Mass/Vol] 31.5 g/dL Normal 30.5-36.0 [facility] Comment on above: Performed By: #### B MP, PHOS, CBCDIF, MG1 ####[facility], [place] [phone] MCV (RBC) [Entitic vol] 93.9 fL Normal 80.0-100.0 [facility] Comment on above: Performed By: #### B MP, PHOS, CBCDIF, MG1 ####[facility], [place] [phone] Monocytes/100 WBC (Bld) 11.0 % Normal [facility] Comment on above: Performed By: #### B MP, PHOS, CBCDIF, MG1 ####[facility] [address]ClevelandHen[place], [place] [phone] Neutrophils/100 WBC (Bld) 77.9 % Normal [facility] Comment on above: Performed By: #### B MP, PHOS, CBCDIF, MG1 ####[facility], [place] [phone] NRBCs 0.0 /100 WBC Normal 0 [facility] Comment on above: Performed By: #### B MP, PHOS, CBCDIF, MG1 ####[facility] [place] [phone] Platelet mean volume (Bld) [Entitic vol] 11.9 fL Normal 9.0-12.7 [facility] Comment on above: Performed By: #### B MP, PHOS, CBCDIF, MG1 ####[facility] [place] [phone] Platelets (Bld) [#/Vol] 182 10*3/uL Normal 150-400 [facility] Comment on above: Performed By: #### B MP, PHOS, CBCDIF, MG1 ####[facility], [place] [phone] RBC (Bld) [#/Vol] 4.29 10*6/uL Normal 3.90-5.20 [facility] Comment on above: Performed By: #### B MP, PHOS, CBCDIF, MG1 ####[facility], [place] [phone] WBC (Bld) [#/Vol] 8.98 10*3/uL Normal 3.70-11.00 [facility] Comment on above: Performed By: #### B MP, PHOS, CBCDIF, MG1 ####[facility], [place] [phone] Magnesiumon 07-20-2021 Magnesium [Mass/Vol] 2.0 mg/dL Normal 1.7-2.3 [facility] Comment on above: Performed By: #### B MP, PHOS, CBCDIF, MG1 ####[facility] [address], [place] [phone] PT EDon 07-20-2021 PT ED HNO ID: [id number] Author: Silvia Sheets DTR Service: Nutrition Therapy Author Type: Rotary Soil Stabilizer Operator Type: Patient Education Filed: 07/20/2021 10:27 AM Note Text: NUTRITION THERAPY PATIENT EDUCATION SERVICE DATE: 07/20/2021 SERVICE TIME: 9:00 TOPIC: Diet: Fiber Controlled LEARNING ASSESSMENT Individuals Assessed: Patient Preferred Learning Method: : Verbal Instruction and Written Instruction Barriers to Learning: : None Evident LEARNING RESPONSE Instruction Provided to: Patient Patient / Family Response: Performs Independently and Verbalizes Understanding Method of Instruction: Teach Back patient able to report back foods she plans to eat on this diet Individual instruction Written instruction - handouts Verbal instruction Material(s) Provided to Patient: G/L for GI Soft Diet Follow-Up Plan: Complete - No need for follow-up Referral (Recommendation): Primary Care Provider MNT Billing: $ Routine Care : 31-45 minutes (spent extra time with the patient she had several questions regarding foods she likes to eat) SIGNATURE: Silvia Sheets DTR PATIENT NAME: Dianna Xiong DATE: July 20, 2021 TIME: 10:26 AM PAGER: Normal [facility] Phosphoruson 07-20-2021 Phosphate [Mass/Vol] 3.2 mg/dL Normal 2.7-4.8 [facility] Comment on above: Performed By: #### B MP, PHOS, CBCDIF, MG1 ####[facility] [address], [place] [phone] THERAPY NTon 07-20-2021 THERAPY NT HNO ID: [id number] Author: Jerson Suarez, PT Service: Physical Therapy Author Type: Physical Therapist Type: Therapy (PT/OT/Speech/Resp) Filed: 07/20/2021 4:03 PM Note Text: Physical Therapy Evaluation SERVICE DATE: 07/20/2021 SERVICE TIME: 1432 to 1538 ROOM: [place] [address] Recommended Discharge Disposition: Home PT Recommended Discharge Disposition Comments: with adequate assistance at home, pt functionally approprite for home with home health services. Pt will require physical assist with IADL tasks to safely maintain precautions Anticipated Discharge Needs: Physical Assist at Home Physical Assist at Home for: Cleaning;Laundry;Meals; Safety;Self Care;Shopping;Transport ation Recommended Discharge Equipment: To Be Determined Assessment: pt with good mobility this afternoon, increased pain and increased time to complete tasks. During this time, pt requires 2L O2 during mobility and ambulation, staff made aware. Anticipating improvements in tolerance and quality of movement. With adequate help at home, pt will be safe for home with home health services. PT will continue to advance as tolerated while in house . Vital Signs Pre Assessment: SpO2,O2 Equipment Pre SpO2: 93 Pre O2 Equipment: Room Air Intra Assessment 1: BP Intra 1,SpO2 Intra 1,Oxygen Equipment Intra 1 Intra BP 1: 133/85 Intra BP Position 1: Sitting Intra SpO2 1: 86 Intra O2 Equipment 1: Room Air Intra Assessment 2: SpO2 Intra 2,Oxygen Equipment Intra 2 Intra SpO2 2: 93 Intra O2 Equipment 2: Nasal Cannula Intra Oxygen Requirement 2: 2L Post Assessment: SpO2 Post,Oxygen Equipment Post Post SpO2: 95 Post O2 Equipment: Nasal Cannula Post Oxygen Requirement: 2L PT 6 Clicks Score: 21 Precautions/Activity Restrictions: Abdominal Precaution/Activity Restriction Comments: binder with OOB mobility Current Hospital Course: Pt is 66 year old female who reports to CC for consultation of hernia. Pt underwent hernia mesh repair 07/19/21, currently POD 1, on RNF for further management. Reason for Hospital Admission: pre op consultation Response to Therapy Interventions: Good participation in activities Continue skilled needs due to: Continued monitoring of vital signs during mobility required,Functional mobility/skill impairments Physical Therapy Problem List: Pain;Impaired Self Care;Decreased Activity Tolerance;Functional Mobility Impairment Treatment Interventions: Education;Self Care / Home Management;Energy Conservation Training;Joint Mobility;Strengthening; Functional Mobility Training;Balance Training Plan for next visit: Bed mobility,Gait training,Exercise instruction/handout Home Environment Patient Lives With: Self/Alone Assistance Available: PRN Entry To Home: Stairs;With Rail Number Of Stairs Into Home: 2 Number Of Stairs To Bed/Bath: 0 Tub/Shower Type: walk in shower with bench and grab bars Laundry: in basement- 10 stairs Equipment Owned: Standard Walker;Shower Chair;Grab Bars-Shower Prior Functional Level: Within Functional Limits Prior Functional Level Comments: 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 CURRENT FUNCTIONAL STATUS: Most recent performance Current Functional Mobility Assist Level Additional Information Rolling Stand By Assistance Supine to Sit Stand By Assistance verbal cues necessary for appropriate form Sit to Supine Stand By Assistance Scooting Stand By Assistance Sit to Stand Stand By Assistance Stand to Sit Stand By Assistance Bed to Chair Toilet/Commode Gait Contact Guard Assistance Gait Device: Wheeled Walker Gait Distance (feet): 20' x2 (40' however standing rest break chcf through) Stairs Curb Step Car Transfer Blank wiley indicate activity not attempted General Deviations/Observations : Jerri decreased;Flexed trunk posture Balance: Static Sitting;Dynamic Sitting;Static Standing;Dynamic Standing Static Sitting Balance: Good Patient able to maintain balance without handhold support, limited postural sway Dynamic Sitting Balance: Good Patient accepts moderate challenge, able to maintain balance while picking up object off floor Static Standing Balance: Good Patient able to maintain balance without handhold support, limited postural sway Dynamic Standing Balance: Fair Patient accepts minimal challenge, able to maintain balance while turning head/trunk JH-HLM: 6: Walk 10 steps or more Learning/Educational Needs: Discharge Plan;Disease Process;Equipment;Famil y Education/Training;Func tional Activities/Mobility;Simon n Management;Plan of Care;Changes in Plan of Care;Precautions;PT In-Hospital Exercise Program;Rehabilitation Techniques and Procedures;Respiratory Function;Safety Goals for Plan of Care: Patient /Caregiver Goals: Walk;Go Home Goals: Patient will demonstrate progress with functional mobility to allow safe discharge to home with availab (more content not included)... Normal [facility] ANES Guadalupe 07-19-2021 ANES POST HNO ID: [id number] Author: Opal Allen MD, PhD Service: Anesthesiology Author Type: Anesthesiologist Type: Anesthesia PostOp Filed: 07/19/2021 3:10 PM Note Text: POST ANESTHESIA EVALUATION NOTE SERVICE DATE: 07/19/2021 SERVICE TIME: current : 1955 Vitals: 07/19/21 0812 07/19/21 1444 Temp: 36.3 ?C (97.3 ?F) 36.8 ?C (98.2 ?F) 07/19/21 0812 07/19/21 1444 07/19/21 1445 BP: 133/69 143/77 136/72 07/19/21 0812 07/19/21 1444 07/19/21 1445 07/19/21 1500 Pulse: 87 82 81 77 07/19/21 0812 07/19/21 1444 07/19/21 1445 07/19/21 1500 Resp: 20 21 20 20 07/19/21 0812 07/19/21 1444 07/19/21 1445 07/19/21 1500 SpO2: 94% 97% 97% 97% Validated Vital Signs: VSS POST ANES STATUS: No apparent anesthetic complications. The patient is appropriately hydrated with stable respiratory and cardiovascular status. Patient has safe and adequate airway control. The patient has appropriate pain relief and no significant post operative nausea or vomiting. The patient has achieved baseline mental status. Intra-Operative Events: No Significant Anesthesia Events Further assessment by Anesthesia Service: None Other Remarks: SIGNATURE: Opal Allen MD, PhD PATIENT NAME: Dianna Xiong DATE: July 19, 2021 TIME: 3:10 PM PAGER/CONTACT #: Luis A [facility] BRIEF OP NOTon 07-19-2021 BRIEF OP NOT HNO ID: [id number] Author: Kalia Hernandez MD Service: General Surgery Author Type: Resident Type: Brief Op Note Filed: 07/19/2021 2:18 PM Note Text: BRIEF OPERATIVE / PROCEDURE NOTE LOG ID: [id number] SURGERY/PROCEDURE DATE: 07/19/2021 INCISION/PROCEDURE START TIME: 11:26 AM INCISION CLOSE/PROCEDURE END TIME: 2:14 PM SURGEON(S)/PROCEDURALIS T(S) AND DIRECTOR OF CATERING(S): Surgeon(s) and Role: * Elly Bliss MD - Primary * Kalia Hernandez MD - Resident - Assisting No Additional Staff SURGERY/PROCEDURE(S): Repair of recurrent incisional hernia Mesh excision ANESTHESIA: General FINDINGS: 4x5cm fascial defect superior to the prior mesh. Multiple loops of small bowel and omentum in the hernia sac. No fistula to the small bowel. Mesh removed in its entirety. Defect closed with BioA mesh in underlay fashion ESTIMATED BLOOD LOSS: 100 mls SPECIMENS: Specimen ID Type Site Comments Sent To path #1 Tissue hernia sac Pathology Routine path #2 Other mesh Accession Only path #3 Tissue umbilical skin Pathology Routine COMPLICATIONS: None PRE-OP/PRE-PROCEDURE DIAGNOSIS: Incarcerated incisional hernia POST-OP/POST-PROCEDURE DIAGNOSIS: Same as Preop SIGNATURE: Kalia Hernandez MD PATIENT NAME: Dianna Xiong DATE: July 19, 2021 TIME: 2:15 PM Normal [facility] NURSING PROGon 07-19-2021 NURSING PROG HNO ID: [id number] Author: Mary Beck RN Service: ? Author Type: Registered Nurse Type: Nursing Progress Note Filed: 07/19/2021 5:54 PM Note Text: Admission/Transfer Note PATIENT NAME: Dianna Xiong Patient transferred from PACU via bed in stable condition. Actions taken: Patient oriented to room, call light function, prescribed activities, Patient rights and Quiet at night. This note was completed by: Mary Beck [facility] OPERATIVE NOon 07-19-2021 OPERATIVE NO HNO ID: [id number] Author: Elly Bliss MD Service: General Surgery Author Type: Physician Type: Operative Report Filed: 07/19/2021 3:51 PM Note Text: OPERATIVE/PROCEDURE REPORT LOG ID: [id number] Surgery/Procedure Date: 07/19/2021 Incision/Procedure Start Time: 11:26 AM Incision Close/Procedure End Time: Surgeon(s)/Proceduralis t(s) and Car Cleaning Supervisor(s): Surgeon(s) and Role: * Elly Bliss MD - Primary * Kalia Hernandez MD - Resident - Assisting Procedure(s): laparotomy, lysis adhesions, removal of old mesh, repair recurrent ventral hernia and implantation of BioA mesh Anesthesia: General Anesthesiologist: See anesthesia sheet History and indications for surgery: Dianna Xiong is a 66 year old woman with a BMI of 54.5 who had an emergent laparoscopic repair of an incisional hernia at the umbilicus on 06/23/19. The hernia was at the site of a prior laparoscopic port for a cholecystectomyShe came back to me on 06/04/21 complaining of erythema and drainage from the umbilicus as well as recurrent bulging, tenderness and a foul smelling discharge. Oral antibiotics did not improve her drainage. . On examination the skin was red and there was bulging consistent with a recurrent hernia. There was ulceration on the right lateral portion of the umbilicus. CT scan showed that the mesh had form the abdominal wall. Small bowel and omentum were herniated through the defect. I was concerned that the redness could indicate infected mesh and possibly a sinus into the bowel. I recommended wound exploration under genera anesthesia with removal of the mesh, reduction of the bowel and omentum back into the abdominal cavity, and repair of the recurrent hernia. Of note, her December 2019 CT also showed a 6 mm left lower lobe pulmonary nodule stable when compared to [address] chest was recommended for December 2020. A repeat chest Ct was done on 04/11/21 for evaluation of chest pain showing a 2 mm right middle lobe pulmonary nodule, and a left lower lobe pulmonary nodule measuring 7 mm, increased in size from 2017. ??Follow-up CT chest in 6 months and 18-24 months was recommended. Her past medical hx was significant for GWENDOLYN, DVT with pulmonary embolism in 2006 and 2013, dyspnea on exertion, rheumatoid arrthritis, hypercholesterolemia, depression, chronic cough, benign thyroid cyst, GERD, hypertension, history of rheumatic fever, and peptic ulcer disease. Also has a hx of chronic back pain with steroid epidural injections at L4-L5. Family hx - Diabetes Mother - Breast cancer Mother 70 - Alzheimer's disease Mother - Heart disease Mother - Heart disease Father - Breast cancer Sister 65 - Anesthesia problems Neg Hx Pre-Op/Pre-Procedure Diagnosis: recurrent incarcerated incisional hernia at the umbilicus and chronic drainage from the wound consistent with infected mesh. Supermorbid obesity. Post-Op/Post-Procedure Diagnosis: Recurrent incarcerated hernia containing unobstructed small bowel and omentum. 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 Findings: Prior mesh from right upper side of old hernia defect, multiple loops of small bowel and omentum in hernia sac. Bowel was viable. 1.5 x 1.5 cm ulcer in umbilical skin. Procedure Details: The patient was brought to the operating room and identified by name and date of . The operative site and procedure were confirmed with the patient, surgical, nursing, and anesthesia teams. The patient was placed in the supine position on the operating table. The patient was given general anesthesia and 900 mg Clindamycin intravenously. A #16 Cao catheter was placed in the bladder using sterile technique and left to gravity drainage. Hair was clipped in the operative field where necessary. The skin was prepped with Chlorhexidine gluconate 4% which was allowed to dry and draped. A time out was performed again identifying the patient, the procedure and the operative site. A midline incision was made with a number 10 blade beginning about 5 cm above the umbilicus, extending around it, and then about 5 cm below the umbilicus. The incision was deepened into the subcutaneous tissues exposing the hernia sac. The sac was large and bowel was seen within it. The sac was from the fascia, the skin and subcutaneous tissues and the abdominal wall fascia. The sac was opened, excised and sent to pathology for permanent section. The small bowel and omentum were carefully freed up.The adhesions between the sac wall and these structures were divided. Several intraloop adhesions were also divided. The neck of the sac was incised above and below the defect to allow an easier reduction. The bowel and omentum were then reduced into the abdominal cavity and protected with a moist sponge and a malleable retractor. The fascial edges were cleared of fat for at least five cm. around the defect. The defect (more content not included)... Normal [facility] SURGICAL PATHOLOGYon 022 SURGICAL PATHOLOGY Specimen originated from [facility] Specimen #: [id number] Submitting Physician: ELLY BLISS ([id number]) FINAL DIAGNOSIS 1. Soft tissue, site not otherwise specified, herniorrhaphy (A) - Hernia sac and fibroadipose tissue with histiocytic reaction. 2. Soft tissue, site not otherwise specified, mesh removal (B) - Skin and fibroadipose tissue with histiocytic reaction and foreign material consistent with synthetic mesh. 3. Skin, umbilical, excision (C) - Skin with ulceration, acute inflammation and necrosis. SDB/FA/tg 07/22/2021 Aylin Wallace M.D. (Electronic Signature) SPECIMEN SUBMITTED A: HERNIA SAC B: MESH C: UMBILICAL SKIN CLINICAL DATA VENTRAL HERNIA GROSS DESCRIPTION A. Received fresh labeled hernia sac are two mckee-yellow, focally hemorrhagic, irregular, fibrofatty, soft tissue fragments measuring 11.0 and 13.0 cm. Sectioning reveals a 0.7 x 0.5 x 0.5 cm smooth-walled cyst with white, opaque contents. The remaining cut surfaces appear focally hemorrhagic and focally yellow and lobulated. Audit Spec sections are submitted as follows: A1 cyst, entirely submitted, A2 assisted sales representative sections from each fragment. B. Received fresh labeled mesh are multiple, clear, mesh-like fragments with adherent mckee-yellow, fatty, focally hemorrhagic, soft tissue aggregating to 7.0 x 7.0 x 1.5 cm. Sectioning reveals focally fibrous, focally fatty cut surfaces. Additionally received are multiple silver-colored metal coils aggregating to 1.5 x 1.0 x 0.3 cm. Audit Spec sections of soft tissue are submitted in B1. C. Received fresh labeled umbilical skin is an unoriented segment of skin and soft tissue measuring 14 x 5 and excised to a depth of 0.6 cm. A 0.7 x 0.5 cm defect is identified. The defect measures 1.7 cm from the margin. The epidermal surface surrounding the defect appears focally lopez and focally red and granular. The remaining epidermal surface appears mckee, wrinkled, and hair-bearing. Sectioning reveals focally fibrous cut surface. Audit Spec sections including the area of defect are submitted in C1. JANEE/pamela 07/19/2021 Gross examination performed at [facility], [address] [place] [address] Date of Report: 07/23/2021 Date of Procedure: 07/19/2021 Date of Receipt: 07/19/2021 Submitted by: ELLY BLISS ([id number]) Location: G90 Diagnostic interpretation performed at [facility], [facility] [address]. [place] Number: [id number] [facility] CNPNon 07-10-2021 [facility] DIANNA XIONG ([id number]) 1955 F Date Time Provider Department 07/10/21 ABENA ROSENBERG (RN) [facility] During your visit today, we recorded the following information about you: Abena Rosenberg RN 07/10/2021 10:35 AM Signed Per 07/10 SM from Karime Feliciano: I evaluated this patient yesterday in [facility]. I ordered urine tests because she had dysuria- she did not have these done yesterday. Can you call her and see if she can get these done CHELSEA? She can have them done at an outside facility if needed. I also requested pulmonary records for her- if you could call and make sure they received the request, the doctor is Dr. Varinder Pool, phone number [phone]. Lastly, I requested anticoagulation clearance from PCP Dr. Pace, if you could call her office as well. ---- DOS 07/19 S/W patient. She is asking if she can have her urine tests @ Dr Pace's office. I spoke with Kendra @ Dr. Pace's office [phone] and fax [phone]. - they did receive AC clearance letter - not yet completed. They will send back via fax when done. - they will contact patient directly to schedule the urine tests chelsea. Aware the orders were for a urinalysis and urine culture and that patient had dysuria @ [facility] appt yesterday. Patient aware their office will call her directly to schedule. S/W Laverne at Dr. Varinder Pool's office @ [phone]. . They did receive request for pulmonary records and will send them to [facility] as directed. Karime NOE. Please fax the urine testing orders to Dr. Pace's office. Thank you. Abena Xiao Coord 07/10/2021 11:07 AM Signed Last recent Pulmonary office note and PFT report has been scanned in. Abena Rosenberg RN 07/10/2021 11:34 AM Signed Spoke with Yasmin at Dr. Huynh's office. They will run patient's urine tests and fax results to [facility]. The AC letter that went to Dr. Huynh is now to to to [facility]. They manage patient's warfarin. (I spoke with Richard) ( ) Karime or Ehsan - please fax anticoagulation letter to above fax #. Thank you. Abena Xiao Coord 07/12/2021 11:10 AM Signed Outside Urine labs have been scanned in. Allergies As of Date: 07/10/2021 Noted Allergy Reaction CEPHALEXIN MONOHYDRATE 10/13/2013 14 - Other: See Comments Comments: Red all over FUROSEMIDE 04/03/2019 9 - Itching GABAPENTIN 10/13/2013 14 - Other: See Comments Comments: Weakness, Sob GRASS POLLEN 03/05/2018 14 - Other: See Comments HYDROCODONE BITARTRATE 10/13/2013 14 - Other: See Comments Comments: Extreme constipation LATEX 02/08/2018 14 - Other: See Comments Comments: Added based on information entered during case entry, please review and add reactions, type, and severity as needed PENICILLINS 10/13/2013 14 - Other: See Comments Comments: Red all over RAGWEED POLLEN 03/05/2018 14 - Other: See Comments SULFA (SULFONAMIDE ANTIBIOTICS) 10/13/2013 16 - Unknown TOPIRAMATE 10/13/2013 14 - Other: See Comments Comments: Difficulty breathing TRAMADOL 06/21/2019 1 - Mental Status Change DARREN LOPEZ 10/27/2016 7 - Swelling Comments: Swelling of eyes ETODOLAC 10/22/2016 14 - Other: See Comments Comments: Other reaction(s): Intolerance-unknown MOLD 10/22/2016 9 - Itching Date Reviewed: 07/09/2021 Reviewed by: Narcisa Serna Ma - Fully Assessed Reason for Visit: Patient Update [1234] Cmt: AC letter, Pulm records, urine testing Prescriptions as of 07/12/2021 - enoxaparin (LOVENOX) 40 mg/0.4 mL Inject 0.3 mL subcutaneously twice daily for 5 days. Start five days before surgery. Do not take the day of surgery - ALBUTEROL INHALATION Inhale as instructed. - warfarin (COUMADIN) 5 mg tablet Take 1 tablet by mouth once daily. - bumetanide (BUMEX) 0.5 mg tablet Take 0.5 mg by mouth once daily as needed. - tiotropium bromide (SPIRIVA RESPIMAT) 1.25 mcg/actuation mist Inhale 1.25 mcg as instructed. - montelukast (SINGULAIR) 10 mg tablet Take 10 mg by mouth daily at bedtime. - propylene glycol (SYSTANE BALANCE) 0.6 % drop Use 1 Drop in the right eye. - SHINGRIX, PF, 50 mcg/0.5 mL injection - omega-3 acid ethyl esters 1 gram capsule Take 2 g by mouth twice daily. - LUTEIN ORAL Take by mouth. - olopatadine (PATANOL) 0.1 % ophthalmic solution 1 Drop as needed. - hydroCHLOROthiazide (HYDRODIURIL, ESIDRIX) 12.5 mg tablet Take 12.5 mg by mouth. - TRIAMCINOLONE ACETONIDE (NASACORT NASAL) Use in the nose. - ESCITALOPRAM OXALATE (LEXAPRO ORAL) Take by mouth. - lansoprazole (PREVACID) 30 mg capsule Take by mouth. - Cholecalciferol, Vitamin D3, (VITAMIN D-3) 2,000 unit cap Take by mouth. Problem List As Of Date 07/10/2021 Noted Resolved Endometrial thickening on ultrasound [R93.89] (more content not included)... [facility] Q - CULTURE,URINE,ROUTINEon 07-10-2021 CULTURE, URINE, ROUTINE SEE NOTE Normal [place] Program Director/Air Personality Comment on above: Order Comment: [facility] performed at: [facility], [address], [address] [place] [address], [address] [place] [address], Senior Drupal Developer: Escobar Marsh MD [facility] Collection Date/Time: [facility] Results Received Date/Time: [facility] Reported Date/Time: Result Comment: CULT URE, URINE, ROUTINE Micro Number: [id number] Test Status: Final Specimen Source: Urine Specimen Quality: Adequate Result: Mixed genital maria elena isolated. These superficial bacteria are not indicative of a urinary tract infection. No further organism identification is warranted on this specimen. If clinically indicated, recollect clean-catch, mid-stream urine and transfer immediately to Urine Culture Transport Tube. Performed By: #### 6 304R, 34F #### [facility] Default [address] [place] [address] Q - URINALYSIS,COMPLETEon Appearance (U) CLEAR Normal CLEAR [facility] Specialist Comment on above: Order Comment: [facility] performed at: [facility], [address], [address] [place] [address], [address] [place] [address], Senior Drupal Developer: Escobar Marsh MD [facility] Date/Time: [facility] Results Received Date/Time: [facility] Reported Date/Time: Performed By: #### 6 304R, 34F #### [facility] Default [address] [place] [address] BACTERIA NONE SEEN Normal NONE SEEN [facility] Program Director/Air Personality Comment on above: Order Comment: [facility] performed at: [facility], [address], [address] [place] [address], [id number], Senior Drupal Developer: Escobar Marsh MD [facility] Date/Time: [facility] Results Received Date/Time: [facility] Reported Date/Time: Performed By: #### 6 304R, 34F #### [facility] Default [address] [place] [address] Bilirubin Ql (U) Negative Normal NEGATIVE [facility] Program Director/Air Personality Comment on above: Order Comment: [facility] performed at: [facility], [address] [place] [address], [address] [place] [address], Senior Drupal Developer: Escobar Marsh MD [facility] Date/Time: [facility] Results Received Date/Time: [facility] Reported Date/Time: Performed By: #### 6 304R, 34F #### [facility] Default [address] [place] [address] Color (U) DARK YELLOW Normal YELLOW [facility] Program Director/Air Personality Comment on above: Order Comment: [facility] performed at: [facility], [address] , [address] [place] [address], [address] [place] [address], Senior Drupal Developer: Escobar Marsh MD [facility] Date/Time: [facility] Results Received Date/Time: [facility] Reported Date/Time: Performed By: #### 6 304R, 34F #### [facility] Default [address] [place] [address] Glucose Ql (U) Negative Normal NEGATIVE [facility] Program Director/Air Personality Comment on above: Order Comment: [facility] performed at: [facility], [address] , [address] [place] [address], [address] [place] [address], Senior Drupal Developer: Escobar Marsh MD [facility] Date/Time: [facility] Results Received Date/Time: [facility] Reported Date/Time: Performed By: #### 6 304R, 34F #### [facility] Default [address] [place] [address] HYALINE CAST NONE SEEN Normal NONE SEEN [facility] Program Director/Air Personality Comment on above: Order Comment: [facility] performed at: [facility], [address] , [address] [place] [address], [address] [place] [address], Senior Drupal Developer: Escobar Marsh MD [facility] Date/Time: [facility] Results Received Date/Time: [facility] Reported Date/Time: Performed By: #### 6 304R, 34F #### [facility] Default [address] [place] [address] Ketones Ql (U) TRACE Abnormal NEGATIVE [facility] Program Director/Air Personality Comment on above: Order Comment: [facility] performed at: [facility], [address] [facility], [address] [place] [address], [address] [place] [address], Senior Drupal Developer: Escobar Marsh MD [facility] Date/Time: [facility] Results Received Date/Time: [facility] Reported Date/Time: Performed By: #### 6 304R, 34F #### [facility] Default [address] [place] [address] Leukocyte esterase Test strip Ql (U) 2+ Abnormal NEGATIVE [facility] Program Director/Air Personality Comment on above: Order Comment: [facility] performed at: [facility], [address] , [address] [place] [address], [address] [place] [address], Senior Drupal Developer: Escobar Marsh MD [facility] Date/Time: [facility] Results Received Date/Time: [facility] Reported Date/Time: Performed By: #### 6 304R, 34F #### [facility] Default [address] [place] [address] Nitrite Ql (U) Negative Normal NEGATIVE [facility] Program Director/Air Personality Comment on above: Order Comment: [facility] performed at: [facility], [address] , [address] [place] [address], [address] [place] [address], Senior Drupal Developer: Escobar Marsh MD [facility] Date/Time: [facility] Results Received Date/Time: [facility] Reported Date/Time: Performed By: #### 6 304R, 34F #### [facility] Default [address] [place] [address] OCCULT BLOOD 1+ Abnormal NEGATIVE [facility] Program Director/Air Personality Comment on above: Order Comment: [facility] performed at: [facility], [address], [address] [place] [address], [address] [place] [address], Senior Drupal Developer: Escobar Marsh MD [facility] Date/Time: [facility] Results Received Date/Time: [facility] Reported Date/Time: Performed By: #### 6 304R, 34F #### [facility] Default [address] [place] [address] pH (U) [pH] Normal 5.0-8.0 [facility] Program Director/Air Personality Comment on above: Order Comment: [facility] performed at: [facility], [address] , [address] [place] [address], [address] [place] [address], Senior Drupal Developer: Escobar Marsh MD [facility] Date/Time: [facility] Results Received Date/Time: [facility] Reported Date/Time: Performed By: #### 6 304R, 34F #### [facility] Default [address] [place] [address] Protein Ql (U) TRACE Abnormal NEGATIVE [facility] Program Director/Air Personality Comment on above: Order Comment: [facility] performed at: [facility], [address], [address] [place] [address], [address] [place] [address], Senior Drupal Developer: Escobar Marsh MD [facility] Date/Time: [facility] Results Received Date/Time: [facility] Reported Date/Time: Performed By: #### 6 304R, 34F #### [facility] Default [address] [place] [address] RBC 0-2 Normal < OR = 2 [facility] Program Director/Air Personality Comment on above: Order Comment: [facility] performed at: [facility], [address] , [address] [place] [address], [address] [place] [address], Senior Drupal Developer: Escobar Marsh MD [facility] Date/Time: [facility] Results Received Date/Time: [facility] Reported Date/Time: Performed By: #### 6 304R, 34F #### [facility] Default [address] [place] [address] Specific gravity (U) [Rel density] 1.028 Normal 1.001-1.035 [facility] Program Director/Air Personality Comment on above: Order Comment: [facility] performed at: [facility], [address] [place] [address], [address] [place] [address], [address] [place] [address], Senior Drupal Developer: Escobar Marsh MD [facility] Date/Time: [facility] Results Received Date/Time: [facility] Reported Date/Time: Performed By: #### 6 304R, 34F #### [facility] Default [address] [place] [address] SQUAMOUS EPITHELIAL CELLS 0-5 Normal < OR = 5 [facility] Program Director/Air Personality Comment on above: Order Comment: [facility] performed at: [facility], [address] [place] [address], [address] [place] [address], [address] [place] [address], Senior Drupal Developer: Escobar Marsh MD [facility] Date/Time: [facility] Results Received Date/Time: [facility] Reported Date/Time: Performed By: #### 6 304R, 34F #### [facility] Default [address] [place] [address] WBC 6-10 Abnormal < OR = 5 [facility] Program Director/Air Personality Comment on above: Order Comment: [facility] performed at: [facility], [address] [place] [address], [address] [place] [address], [address] [place] [address], Senior Drupal Developer: Escobar Marsh MD [facility] Date/Time: [facility] Results Received Date/Time: [facility] Reported Date/Time: Performed By: #### 6 304R, 34F #### [facility] Default [address] [place] [address] CBC and Differentialon 07-09 Abs Baso 0.05 k/uL Normal <0.11 [facility] Comment on above: Performed By: #### C BCDIF, PT, CMP ####[place] [address] [address] [place] [phone] Abs Cassia 0.46 k/uL Normal <0.87 [facility] Comment on above: Performed By: #### C BCDIF, PT, CMP ####[place] [address] [phone] Abs Neut 5.16 k/uL Normal 1.45-7.50 [facility] Comment on above: Performed By: #### C BCDIF, PT, CMP ####[place] [address] [address] [place] [phone] Absolute nRBC <0.01 Normal <0.01 [facility] Comment on above: Performed By: #### C BCDIF, PT, CMP ####[place] [address] [phone] Basophils/100 WBC (Bld) 0.7 % Normal [facility] Comment on above: Performed By: #### C BCDIF, PT, CMP ####[place] [address] [address] [place] [phone] DTYPE Auto Diff Normal [facility] Comment on above: Performed By: #### C BCDIF, PT, CMP ####[place] [address] [phone] Eosinophils (Bld) [#/Vol] 0.06 10*3/uL Normal <0.46 [facility] Comment on above: Performed By: #### C BCDIF, PT, CMP ####[place] [address] [address] [place] [phone] Eosinophils/100 WBC (Bld) 0.9 % Normal [facility] Comment on above: Performed By: #### C BCDIF, PT, CMP ####[place] [address] [address]ClevelBr[address] [place]ille [phone] Erythrocyte distribution width (RBC) [Ratio] 14.5 % Normal 11.5-15.0 [facility] Comment on above: Performed By: #### C BCAYUSHF, PT, CMP ####[place] [address] [address] [place] [phone] Hematocrit (Bld) [Volume fraction] 49.4 % High 36.0-46.0 [facility] Comment on above: Performed By: #### C BCSIVAKUMAR, PT, CMP ####[place] [address] [address] [place] [phone] Hemoglobin (Bld) [Mass/Vol] 15.6 g/dL High 11.5-15.5 [facility] Comment on above: Performed By: #### C BCSIVAKUMAR PT, CMP ####[place] [address] [address] [place] [phone] Lymphocytes (Bld) [#/Vol] 1.10 10*3/uL Normal 1.00-4.00 [facility] Comment on above: Performed By: #### C BCSIVAKUMAR, PT, CMP ####[place] [address] [address] [place] [phone] Lymphocytes/100 WBC (Bld) 16.1 % Normal [facility] Comment on above: Performed By: #### C BCDIF, PT, CMP ####[place] [address] [address] [place] [phone] MCH 29.8 pG Normal 26.0-34.0 [facility] Comment on above: Performed By: #### C BCAYUSHF, PT, CMP ####[place] [address] AveClevelBrandon [place]ille [phone] MCHC (RBC) [Mass/Vol] 31.6 g/dL Normal 30.5-36.0 [facility] Comment on above: Performed By: #### C BCDIF, PT, CMP ####[facility] AveClevelandHenning, [place] [phone] MCV (RBC) [Entitic vol] 94.3 fL Normal 80.0-100.0 [facility] Comment on above: Performed By: #### C BCDIF, PT, CMP ####[place] [address] [address] [place] [phone] Monocytes/100 WBC (Bld) 6.7 % Normal [facility] Comment on above: Performed By: #### C BCDIF, PT, CMP ####[place] [address] [address] [place] [phone] Neutrophils/100 WBC (Bld) 75.6 % Normal [facility] Comment on above: Performed By: #### C BCDIF, PT, CMP ####[place] [address] [address] [place], [place] [phone] NRBCs 0.0 /100 WBC Normal 0 [facility] Comment on above: Performed By: #### C BCDIF, PT, CMP ####[place] [address] [address] [place], [place] [phone] Platelet mean volume (Bld) [Entitic vol] 11.9 fL Normal 9.0-12.7 [facility] Comment on above: Performed By: #### C BCDIF, PT, CMP ####[place] [address] [address]level[address] [place] [phone] Platelets (Bld) [#/Vol] 222 10*3/uL Normal 150-400 [facility] Comment on above: Performed By: #### C BCDIF, PT, CMP ####[place] [address]ClevelSpring [place], [place] [phone] RBC (Bld) [#/Vol] 5.24 10*6/uL High 3.90-5.20 [facility] [place] [facility] Comment on above: Performed By: #### C BCDIF, PT, CMP ####[facility] [id number] [place], [place] [phone] WBC (Bld) [#/Vol] 6.85 10*3/uL Normal 3.70-11.00 [facility] Comment on above: Performed By: #### C BCDIF, PT, CMP ####[facility] [id number] [place], [place] [phone] CNNUR[facility]on 07-09-2021 [facility] DIANNA XIONG ([id number]) 1955 F Date Time Provider Department 07/09/21 11:30 AM JOSE JAMES During your visit today, we recorded the following information about you: Jose James RN 07/09/2021 1:58 PM Signed AMBULATORY PATIENT EDUCATION NOTE PRE-OP TEACHING PROCEDURE: hernia repair READINESS TO LEARN COGNITIVE ABILITY: Alert and oriented MOTIVATION TO LEARN: Interested FAMILY SUPPORT: High - Very involved in pt care INSTRUCTION PROVIDED TO: Patient and friend PATIENT LEARNS BEST BY: Individual Instruction Written Instruction - Hand-outs Verbal Instruction Multiple Methods FACTORS AFFECTING LEARNING: None PHYSICAL LIMITATIONS AFFECTING LEARNING: None LEARNING RESPONSE DIAGNOSIS: incarcerated ventral hernia/recurrent METHOD OF INSTRUCTION: Teach Back hibiclens Individual instruction Written instruction - handouts Verbal instruction PATIENT / FAMILY RESPONSE: Verbalizes understanding of: DRAIN CARE- Correct procedure to perform drain care INFECTION MANAGEMENT-Signs and symptoms of an infection and importance of contacting the physician PAIN MANAGEMENT-Effective strategies to manage pain in addition to pain medication PHYSICAL RESTRICTIONS-Physical restrictions and recommendations after discharge from the hospital POST-OPERATIVE INSTRUCTIONS-Correct actions to take to reduce postoperative complications PRE-OPERATIVE INSTRUCTIONS-Correct action to take to follow pre-operative instructions SYMPTOM MANAGEMENT-Correct actions to take to manage symptoms associated with his/her disease/illness WORSENING CONDITION-Signs and symptoms of a worsening condition that warrant a call to the physician WOUND CARE-Correct procedure to perform wound care melanie FOLLOW-UP PLAN: Complete - No need for follow-up SUPPLEMENTAL MATERIAL: Your Surgical Guide melanie REFERRAL (RECOMMENDATION): None Electronically Signed By: Jose James RN In Department: GENERAL SURGERY Jose James RN 07/09/2021 4:01 PM Signed Addended by: JOSE JAMES on: 07/09/2021 04:01 PM Modules accepted: SmartSet Referring Provider: ELLY BLISS [[id number]] Allergies As of Date: 07/09/2021 Noted Allergy Reaction CEPHALEXIN MONOHYDRATE 10/13/2013 14 - Other: See Comments Comments: Red all over FUROSEMIDE 04/03/2019 9 - Itching GABAPENTIN 10/13/2013 14 - Other: See Comments Comments: Weakness, Sob GRASS POLLEN 03/05/2018 14 - Other: See Comments HYDROCODONE BITARTRATE 10/13/2013 14 - Other: See Comments Comments: Extreme constipation LATEX 02/08/2018 14 - Other: See Comments Comments: Added based on information entered during case entry, please review and add reactions, type, and severity as needed PENICILLINS 10/13/2013 14 - Other: See Comments Comments: Red all over RAGWEED POLLEN 03/05/2018 14 - Other: See Comments SULFA (SULFONAMIDE ANTIBIOTICS) 10/13/2013 16 - Unknown TOPIRAMATE 10/13/2013 14 - Other: See Comments Comments: Difficulty breathing TRAMADOL 06/21/2019 1 - Mental Status Change CAT DANDER 10/27/2016 7 - Swelling Comments: Swelling of eyes ETODOLAC 10/22/2016 14 - Other: See Comments Comments: Other reaction(s): Intolerance-unknown MOLD 10/22/2016 9 - Itching Date Reviewed: 07/09/2021 Reviewed by: Narcisa Serna Ma - Fully Assessed Primary Visit Diagnosis:Incarcerated ventral hernia [K43.6] Other Visit Diagnosis:Preoperative examination [Z01.818] Order(s):PRE-PROCEDURE AND PRE-OPERATIVE COVID [SQPOCOVD] Order #: [id number] FUTURE Prescriptions as of 07/09/2021 - ALBUTEROL INHALATION Inhale as instructed. - enoxaparin (LOVENOX) 40 mg/0.4 mL Inject 0.3 mL subcutaneously twice daily for 5 days. Start five days before surgery. Do not take the day of surgery - warfarin (COUMADIN) 5 mg tablet Take 1 tablet by mouth once daily. - bumetanide (BUMEX) 0.5 mg tablet Take 0.5 mg by mouth once daily as needed. - tiotropium bromide (SPIRIVA RESPIMAT) 1.25 mcg/actuation mist Inhale 1.25 mcg as instructed. - montelukast (SINGULAIR) 10 mg tablet Take 10 mg by mouth daily at bedtime. - propylene glycol (SYSTANE BALANCE) 0.6 % drop Use 1 Drop in the right eye. - SHINGRIX, PF, 50 mcg/0.5 mL injection - omega-3 acid ethyl esters 1 gram capsule Take 2 g by mouth twice daily. - LUTEIN ORAL Take by mouth. - olopatadine (PATANOL) 0.1 % ophthalmic solution 1 Drop as needed. - hydroCHLOROthiazide (HYDRODIURIL, ESIDRIX) 12.5 mg tablet Take 12.5 mg by mouth. - TRIAMCINOLONE ACETONIDE (NASACORT NASAL) Use in the nose. - ESCITALOPRAM OXALATE (LEXAPRO ORAL) Take by mouth. - lansoprazole (PREVACID) 30 mg capsule Take by mouth. - Cholecalciferol, Vitamin D3, (VITAMIN D-3) 2,000 unit cap Take by mouth. Problem List As Of Date 07/09/2021 Noted Resolved Endometrial thickening on ultrasound [R93.89] 01/19/2017 Lumbar spondylo (more content not included)... Normal [facility] CNOVon 07-09-2021 CNOV Office Visit (ANGIE ) DIANNA XIONG ([id number]) 1955 F Date Time Provider Department 07/09/21 1:00 PM ELLY BLISS During your visit today, we recorded the following information about you: Temperature Pulse Blood pressure Weight 97.5 degrees 97/minute 91/64 147.9 kg Height 1.651 m Narcisa Canelarachid Alexandre 07/09/2021 12:52 PM Signed Intake information documented in the prior visit with lab today. Elly Bliss MD 07/09/2021 2:45 PM Signed STAFF NOTE: Patient seen and personally examined with resident. Findings personally reviewed and confirmed including history,ROS, PMHx, PSHx, Fam Hx, Soc Hx and Physical exam except as otherwise noted below. Dianna Xiong is a 66 year old woman with a recurrent umbilical hernia who is scheduled . She has a BMI of 54.6. She had a repair of an incarcerated umbilical hernia on 06/23/19, but began noticing erythema, a recurrent bulge and a foul smelling discharge in March 2021. The symptoms raise concern for mesh erosion into bowel and a possible enterocutaneous fistula. I plan to remove her mesh, examine the intestine, and if necessary resection a portion, and then repair her hernia through an open incision. She is scheduled for 07/19/21. She has an abnormal cardiac stress test that showed possible anterior ischemia, but that might be due to her body habitus. Her LV systolic ejection fraction is normal. Coronary CTA did not suggest significant stenosis. She also has a hx of a PE and is on warfarin. HISTORIES No family history on file. PAST MEDICAL HISTORY Diagnosis Date - Arthritis - Depression - DVT (deep venous thrombosis) (HCC) - Heart disease - Lung disease - GWENDOLYN (obstructive sleep apnea) - PE (pulmonary embolism) - Peptic ulcer disease - Rheumatoid arthritis (HCC) PAST SURGICAL HISTORY Procedure Laterality Date - CARPAL TUNNEL 1981 - CHOLECYSTECTOMY HX 1999 - PAST SURGICAL HISTORY OF 1996 right shoulder surgery - PAST SURGICAL HISTORY OF 2006 left knee scope - PAST SURGICAL HISTORY OF 2002 arthroscopy knee - TONSILLECTOMY HX 1959 Social History Tobacco Use - Smoking status: Never Smoker - Smokeless tobacco: Never Used Substance Use Topics - Alcohol use: No - Drug use: Not on file Current Outpatient Medications Medication Sig - warfarin (COUMADIN) 5 mg tablet Take 1 tablet by mouth once daily. - bumetanide (BUMEX) 0.5 mg tablet Take 0.5 mg by mouth once daily as needed. - tiotropium bromide (SPIRIVA RESPIMAT) 1.25 mcg/actuation mist Inhale 1.25 mcg as instructed. - montelukast (SINGULAIR) 10 mg tablet Take 10 mg by mouth daily at bedtime. - propylene glycol (SYSTANE BALANCE) 0.6 % drop Use 1 Drop in the right eye. - SHINGRIX, PF, 50 mcg/0.5 mL injection - omega-3 acid ethyl esters 1 gram capsule Take 2 g by mouth twice daily. - LUTEIN ORAL Take by mouth. - olopatadine (PATANOL) 0.1 % ophthalmic solution 1 Drop as needed. - hydroCHLOROthiazide (HYDRODIURIL, ESIDRIX) 12.5 mg tablet Take 12.5 mg by mouth. - TRIAMCINOLONE ACETONIDE (NASACORT NASAL) Use in the nose. - ESCITALOPRAM OXALATE (LEXAPRO ORAL) Take by mouth. - lansoprazole (PREVACID) 30 mg capsule Take by mouth. - Cholecalciferol, Vitamin D3, (VITAMIN D-3) 2,000 unit cap Take by mouth. No current facility-administered medications for this visit. Allergies: Cephalexin Monohydr* Other: See Comments Comment:Red all over Furosemide Itching Gabapentin Other: See Comments Comment:Weakness, Sob Grass Pollen Other: See Comments Hydrocodone Bitartr* Other: See Comments Comment:Extreme constipation Latex Other: See Comments Comment:Added based on information entered during case entry, please review and add reactions, type, and severity as needed Penicillins Other: See Comments Comment:Red all over Ragweed Pollen Other: See Comments Sulfa (Sulfonamide * Unknown Topiramate Other: See Comments Comment:Difficulty breathing Tramadol Mental Status Change Cat Dander Swelling Comment:Swelling of eyes Etodolac Other: See Comments Comment:Other reaction(s): Intolerance-unknown Mold Itching IMP: Recurrent umbilical hernia with infected mesh and possible erosion of mesh into bowel BMI 54 PLAN: laparotomy, removed old mesh, repair recurrent ventral hernia. MD Elly Strong MD 07/09/2021 2:45 PM Signed [facility] - HISTORY AND PHYSICAL Chief Complaint: Ventral Hernia HPI: Dianna Xiong is a 66 year old female with PMHx DVT and PE (currently on Coumadin), and ventral hernia s/p IPOM (06/23/2019) who developed recurrent ventral hernia around [facility]. At the time of recurrence, the patient reported that she was doing some heavy lifting at the time and started getting nausea and abdominal pain. ?She then felt a bulge again at the umbilicus. A CT scan was o (more content not included)... Normal [facility] Comp Metabolic Panelon 07-09 Albumin [Mass/Vol] 4.2 g/dL Normal 3.9-4.9 [facility] Comment on above: Performed By: #### C BCDIF, PT, CMP ####[facility] [place] [phone] ALP [Catalytic activity/Vol] 78 U/L Normal 34-123 [facility] Comment on above: Performed By: #### C BCDIF, PT, CMP ####[place] [address], [place] [phone] ALT [Catalytic activity/Vol] 25 U/L Normal 7-38 [facility] Comment on above: Performed By: #### C BCDIF, PT, CMP ####[facility] [place] [phone] Anion gap [Moles/Vol] 11 mmol/L Normal 9-18 [facility] Comment on above: Performed By: #### C BCDIF, PT, CMP ####[facility] [place] [phone] AST [Catalytic activity/Vol] 31 U/L Normal 13-35 [facility] Comment on above: Performed By: #### C BCDIF, PT, CMP ####[facility] [place] [phone] Bilirubin [Mass/Vol] 0.5 mg/dL Normal 0.2-1.3 [facility] Comment on above: Performed By: #### C BCDIF, PT, CMP ####[facility], [place] [phone] Calcium [Mass/Vol] 10.4 mg/dL High 8.5-10.2 [facility] Comment on above: Performed By: #### C BCAYUSHF PT, CMP ####[place] [address] [address] [place] [phone] Chloride [Moles/Vol] 105 mmol/L Normal 97-105 [facility] Comment on above: Performed By: #### C BCAYUSHF PT, CMP ####[place] [address] [address] [place] [phone] CO2 [Moles/Vol] 27 mmol/L Normal 22-30 [facility] Comment on above: Performed By: #### C BCSIVAKUMAR PT, CMP ####[place] [address] [address] [place] [phone] Creatinine [Mass/Vol] 0.95 mg/dL Normal 0.58-0.96 [facility] Comment on above: Performed By: #### C BCSIVAKUMAR PT, CMP ####[place] [address] [address] [place] [phone] eGFR- Amer. >60 Normal [facility] Comment on above: Performed By: #### C BCSIVAKUMAR PT, CMP ####[place] [address] [address] [place] [phone] eGFR-All Other Races 59 . Normal [facility] Comment on above: Result Comment: eGFR (Estimated GFR) Units of measure: mL/min/1.73 meters squared eGFR is derived from the reexpressed MDRD Study equation using the following parameters: serum creatinine, age, gender and race. The creatinine assay has been calibrated to be traceable to IDMS. An eGFR <60 mL/min/1.73m2 for >3 months is consistent with chronic kidney disease. Refer to KDOQI guidelines for clinical interpretation. In patients with unstable renal function, e.g. those with acute kidney injury, the eGFR may not accurately reflect actual GFR. Note: On 08/17/2021, the eGFR calculation will be updated to the NKF-ASN Task Force recommended 2020 CKD-EPI creatinine equation which does not include a race variable. For more information or to access a 2020 CKD-EPI calculator, visit the National Kidney Foundation website at kidney.org/professionals/kdoqi/gfr_calculator. Performed By: #### C AXEL PT, CMP ####[facility] [place], [place] [phone] Glucose [Mass/Vol] 97 mg/dL Normal 74-99 [facility] Comment on above: Result Comment: The [place] Diabetes Association (ADA) provides guidance for cutoff values for fasting glucose and random glucose. The ADA defines fasting as no caloric intake for at least 8 hours. Fasting plasma glucose results between 100 to 125 mg/dL indicate increased risk for diabetes (prediabetes). Fasting plasma glucose results greater than or equal to 126 mg/dL meet the criteria for diagnosis of diabetes. In the absence of unequivocal hyperglycemia, results should be confirmed by repeat testing. In a patient with classic symptoms of hyperglycemia or hyperglycemic crisis, random plasma glucose results greater than or equal to 200 mg/dL meet the criteria for diagnosis of diabetes. Reference: Standards of Medical Care in Diabetes 2016, [place] Diabetes Association. Diabetes Care. 2016.39(Suppl 1). Performed By: #### C AXEL PT, CMP ####[facility], [place] [phone] Potassium [Moles/Vol] 4.1 mmol/L Normal 3.7-5.1 [facility] Comment on above: Performed By: #### C AXEL PT, CMP ####[facility], [place] [phone] Protein [Mass/Vol] 7.5 g/dL Normal 6.3-8.0 [facility] Comment on above: Performed By: #### C AXEL PT, CMP ####[facility], [place] [phone] Sodium [Moles/Vol] 143 mmol/L Normal 136-144 [facility] Comment on above: Performed By: #### C BCDIF, PT, CMP ####[facility] [address] [place], [place] [phone] Urea nitrogen [Mass/Vol] 23 mg/dL High 7-21 [facility] Comment on above: Performed By: #### C BCDIF, PT, CMP ####[facility] [address] [place], [place] [phone] HISTORY PHYSICALon HISTORY PHYSICAL HNO ID: [id number] Author: Elly Bliss MD Service: ? Author Type: Physician Type: HANDP Filed: 07/09/2021 2:45 PM Note Text: [facility] - HISTORY AND PHYSICAL Chief Complaint: Ventral Hernia HPI: Dianna Xiong is a 66 year old female with PMHx DVT and PE (currently on Coumadin), and ventral hernia s/p IPOM (06/23/2019) who developed recurrent ventral hernia around 2019. At the time of recurrence, the patient reported that she was doing some heavy lifting at the time and started getting nausea and abdominal pain. ?She then felt a bulge again at the umbilicus. A CT scan was obtained, which showed release of tacks from the anterior abdominal wall through which small bowel was seen to herniate. In clinic in December of 2019, the plan was for the patient to lose weight prior to second repair (BMI 53). Around February 2021, the patient noticed erythema of the skin overlying her hernia, which started having foul smelling output. On 05/15/2021 the patient presented to the ED secondary to the erythema and purulent drainage, where they obtained a CT Abd/Pelvis, which showed large umbilical hernia containing small bowel without evidence of obstruction or strangulation. She was discharged with antibiotics topical ointments and instructed to follow-up with Dr. Bliss. She was seen in clinic on 06/04/2021 and reported progressive pain and increased size of her ventral hernia. Since that time, the patient has seen her family medicine provider for antibiotic topical cream (she is unsure of the name). She has continued to have intermittent foul smelling drainage from her umbilicus. Relevant previous operations include: Lap Kelley (1999) IPOM (2019) PAST MEDICAL HISTORY Diagnosis Date - Arthritis - Depression - DVT (deep venous thrombosis) ([facility]) - Heart disease - Lung disease - GWENDOLYN (obstructive sleep apnea) - PE (pulmonary embolism) - Peptic ulcer disease - Rheumatoid arthritis (HCC) PAST SURGICAL HISTORY Procedure Laterality Date - CARPAL TUNNEL 06/22/1981 - CHOLECYSTECTOMY HX 06/22/1999 - PAST SURGICAL HISTORY OF 06/22/1996 right shoulder surgery - PAST SURGICAL HISTORY OF 06/22/2006 left knee scope - PAST SURGICAL HISTORY OF 06/22/2002 arthroscopy knee - PAST SURGICAL HISTORY OF Knee replacement - PAST SURGICAL HISTORY OF Hernia repair - PAST SURGICAL HISTORY OF Breast lumpectomy - TONSILLECTOMY HX 06/22/1959 Social History Tobacco Use - Smoking status: Never Smoker - Smokeless tobacco: Never Used Substance Use Topics - Alcohol use: No - Drug use: Never Additional social history not relevant to the patient's HPI FAMILY HISTORY Problem Relation Age of Onset - Anesthesia Problems No Family History Additional family history not relevant to the patient's HPI ALLERGIES Allergen Reactions - Cephalexin Monohydr* Other: See Comments Red all over - Furosemide Itching - Gabapentin Other: See Comments Weakness, Sob - Grass Pollen Other: See Comments - Hydrocodone Bitartr* Other: See Comments Extreme constipation - Latex Other: See Comments Added based on information entered during case entry, please review and add reactions, type, and severity as needed - Penicillins Other: See Comments Red all over - Ragweed Pollen Other: See Comments - Sulfa (Sulfonamide * Unknown - Topiramate Other: See Comments Difficulty breathing - Tramadol Mental Status Change - Cat Dander Swelling Swelling of eyes - Etodolac Other: See Comments Other reaction(s): Intolerance-unknown - Mold Itching Current Outpatient Medications Medication Sig Dispense Refill - ALBUTEROL INHALATION Inhale as instructed. - warfarin (COUMADIN) 5 mg tablet Take 1 tablet by mouth once daily. 30 tablet 0 - bumetanide (BUMEX) 0.5 mg tablet Take 0.5 mg by mouth once daily as needed. (Patient not taking: Reported on 07/09/2021 ) 0 - tiotropium bromide (SPIRIVA RESPIMAT) 1.25 mcg/actuation mist Inhale 1.25 mcg as instructed. - montelukast (SINGULAIR) 10 mg tablet Take 10 mg by mouth daily at bedtime. - propylene glycol (SYSTANE BALANCE) 0.6 % drop Use 1 Drop in the right eye. - SHINGRIX, PF, 50 mcg/0.5 mL injection - omega-3 acid ethyl esters 1 gram capsule Take 2 g by mouth twice daily. - LUTEIN ORAL Take by mouth. (Patient not taking: Reported on 07/09/2021 ) - olopatadine (PATANOL) 0.1 % ophthalmic solution 1 Drop as needed. - hydroCHLOROthiazide (HYDRODIURIL, ESIDRIX) 12.5 mg tablet Take 12.5 mg by mouth. - TRIAMCINOLONE ACETONIDE (NASACORT NASAL) Use in the nose. - ESCITALOPRAM OXALATE (LEXAPRO ORAL) Take by mouth. - lansoprazole (PREVACID) 30 mg capsule Take by mouth. - Cholecalciferol, Vitamin D3, (VITAMIN D-3) 2,000 unit cap Take by mouth. No current facility-administered medications for this visit. REVIEW OF SYSTEMS The remainder of the 12 review of systems is negative other than wh (more content not included)... [facility] HISTORY PHYSICAL HNO ID: [id number] Author: Karime Feliciano PA-C Service: ? Author Type: Physician Car Cleaning Supervisor Type: HANDP Filed: 07/16/2021 7:27 AM Note Text: HISTORY AND PHYSICAL EXAMINATION SERVICE DATE: 07/09/2021 SERVICE TIME: 8:15 AM PRIMARY CARE PHYSICIAN: Abiola Pace MD REASON FOR VISIT: Dianna Xiong is a 66 year old female who is scheduled for EXPLORATORY LAPAROTOMY ADULT, RESECTION BOWEL SMALL, REMOVAL OF PROSTHETIC MATERIAL OR MESH ABDOMINAL WALL FOR INFECTION, REPAIR HERNIA, RECURRENT VENTRAL, INCARCERATED OR STRANGULATED at the request of Dr. Elly Bliss for consultation. My final recommendation will be communicated back to the requesting physician by way of shared medical record or letter. The patient has the following: ACTIVE PROBLEM LIST Endometrial Thickening On Ultrasound Lumbar Spondylosis Lumbosacral Spondylosis Without Myelopathy Uterine Leiomyoma Thyroid Nodule Morbid Obesity (Hcc) Dvt (Deep Venous Thrombosis) (Hcc) Obesity, Class III, BMI >= 40 Post-Operative State Htn (Hypertension) Gerd (Gastroesophageal Reflux Disease) Gwendolyn (Obstructive Sleep Apnea) Abnormal Stress Test Asthma Subjective CHIEF COMPLAINT: Ventral hernia HPI: Patient is a 27 year old female who is scheduled for EXPLORATORY LAPAROTOMY ADULT, RESECTION BOWEL SMALL, REMOVAL OF PROSTHETIC MATERIAL OR MESH ABDOMINAL WALL FOR INFECTION, REPAIR HERNIA, RECURRENT VENTRAL, INCARCERATED OR STRANGULATED on 07/19/21. Patient had a 66 year old woman s/p emergent laparoscopic repair of an incarcerated umbilical hernia on 06/23/2019. She now has erythema and drainage from the umbilicus and a recurrent umbilical hernia. She has been on antibioitics without improvement. Denies any fevers, chills, nausea, vomiting, or chest pain. PAST MEDICAL HISTORY Diagnosis Date - Abnormal stress test 07/09/2021 - Arthritis - Asthma 07/09/2021 - Depression - DVT (deep venous thrombosis) ([facility]) - GERD (gastroesophageal reflux disease) 07/09/2021 - Heart disease - HTN (hypertension) 07/09/2021 - Lung disease - GWENDOLYN (obstructive sleep apnea) - PE (pulmonary embolism) - Peptic ulcer disease - Rheumatoid arthritis ([facility]) PAST SURGICAL HISTORY Procedure Laterality Date - CARPAL TUNNEL 06/22/1981 - CHOLECYSTECTOMY HX 06/22/1999 - PAST SURGICAL HISTORY OF 06/22/1996 right shoulder surgery - PAST SURGICAL HISTORY OF 06/22/2006 left knee scope - PAST SURGICAL HISTORY OF 06/22/2002 arthroscopy knee - PAST SURGICAL HISTORY OF Knee replacement - PAST SURGICAL HISTORY OF Hernia repair - PAST SURGICAL HISTORY OF Breast lumpectomy - TONSILLECTOMY HX 06/22/1959 FAMILY HISTORY Problem Relation Age of Onset - Anesthesia Problems No Family History SOCIAL HISTORY: Social History Tobacco Use - Smoking status: Never Smoker - Smokeless tobacco: Never Used Substance Use Topics - Alcohol use: No - Drug use: Never Prior to Admission medications as of 07/09/21 1251 Medication Sig Last Dose Taking ALBUTEROL INHALATION Inhale as instructed. Taking Yes warfarin (COUMADIN) 5 mg tablet Take 1 tablet by mouth once daily. Taking Yes tiotropium bromide (SPIRIVA RESPIMAT) 1.25 mcg/actuation mist Inhale 1.25 mcg as instructed. Taking Yes montelukast (SINGULAIR) 10 mg tablet Take 10 mg by mouth daily at bedtime. Taking Yes propylene glycol (SYSTANE BALANCE) 0.6 % drop Use 1 Drop in the right eye. Taking Yes omega-3 acid ethyl esters 1 gram capsule Take 2 g by mouth twice daily. Taking Yes olopatadine (PATANOL) 0.1 % ophthalmic solution 1 Drop as needed. Taking Yes hydroCHLOROthiazide (HYDRODIURIL, ESIDRIX) 12.5 mg tablet Take 12.5 mg by mouth. Taking Yes TRIAMCINOLONE ACETONIDE (NASACORT NASAL) Use in the nose. Taking Yes ESCITALOPRAM OXALATE (LEXAPRO ORAL) Take by mouth. Taking Yes lansoprazole (PREVACID) 30 mg capsule Take by mouth. Taking Yes Cholecalciferol, Vitamin D3, (VITAMIN D-3) 2,000 unit cap Take by mouth. Taking Yes enoxaparin (LOVENOX) 40 mg/0.4 mL Inject 0.3 mL subcutaneously twice daily for 5 days. Start five days before surgery. Do not take the day of surgery bumetanide (BUMEX) 0.5 mg tablet Take 0.5 mg by mouth once daily as needed. Patient not taking: Reported on 07/09/2021 Not Taking SHINGRIX, PF, 50 mcg/0.5 mL injection LUTEIN ORAL Take by mouth. Patient not taking: Reported on 07/09/2021 Not Taking No medication comments found. ALLERGIES Allergen Reactions - Cephalexin Monohydr* Other: See Comments Red all over - Furosemide Itching - Gabapentin Other: See Comments Weakness, Sob - Grass Pollen Other: See Comments - Hydrocodone Bitartr* Other: See Comments Extreme constipation - Latex Other: See Comments Added based on information entered during case entry, please review and add reactions, type, and severity as needed - Penicillins Other: See Comments Red all over - Ragweed Pollen Other: See Comments - Sulfa (Sul (more content not included)... [facility] Protimeon 07-09-2021 PT INR 2.7 High 0.9-1.3 [facility] Comment on above: Result Comment: Liz min K Antagonist (VKA) Therapeutic Range: INR 2 to 3 (Target INR of 2.5) Note: For patients treated with VKA drugs, such as warfarin, the [employer] [employer] 2012 Guideline recommends a therapeutic INR range of 2 to 3 (target INR of 2.5). This recommendation includes high-risk patients with antiphospholipid syndrome with previous arterial or venous thromboembolism, current-generation mechanical or bioprosthetic aortic heart valve replacement. Note: Patients with mechanical aortic valve replacement and additional risk factors for thromboembolic events (atrial fibrillation, previous thromboembolism, LV dysfunction, hypercoagulable conditions) or an older generation mechanical AVR (i.e., ball in-Cage) or any mechanical MVR should have a INR therapeutic range of 2.5 to 3.5 (target INR of 3). Maylin GH, et al. Chest 2012, 141:7S-47S Yanique RA, et al. [facility] 2017, 70: 252-289 Performed By: #### C BCDIF, PT, CMP ####[facility], [place] [phone] PT Sec 26.9 sec High 9.7-13.0 [facility] Comment on above: Performed By: #### C BCDIF, PT, CMP ####[facility], [place] [phone] Type and SCR (30D)on 022 ABO/RH(D) AB POSTIVE [facility] Comment on above: Performed By: #### T SCR30 ####[facility], [place] [phone] XR CHEST 2V FRONTAL/LATon XR CHEST 2V FRONTAL/LAT * * *Final Report* * * DATE OF EXAM: Jul 09 2021 10:15AM AOX [id number] - XR CHEST 2V FRONTAL/LAT / PROCEDURE REASON: multiple diagnoses * * * * Physician Interpretation * * * * EXAMINATION: CHEST RADIOGRAPH (2 VIEW FRONTAL and LATERAL) CLINICAL HISTORY: Incarcerated ventral hernia Ventral hernia with gangrene MQ: [id number] EXAM DATE/TIME: 07/09/2021 10:15 AM COMPARISON: 06/23/2019 RESULT: Lines, tubes, and devices: None. Lungs and pleura: Again noted is anterior eventration of the right hemidiaphragm. There has been mild improvement of partial atelectasis at the bases. Prominence of the lung markings in the perihilar and basilar regions is likely secondary to crowded vessels, given the low lung volume. This could limit the evaluation for subtle interstitial or bronchial abnormalities in these regions. No consolidation or mass lesion. No pleural effusion or pneumothorax. Cardiomediastinal silhouette: Normal sized heart. Thoracic aorta is mildly tortuous. Bones and soft tissues: Osteopenia and degenerative changes are seen in the spine. IMPRESSION: As above Refrigeration Service Technician: PSCB Transcribe Date/Time: Jul 09 2021 3:54P Dictated by : AYO BUSH MD This examination was interpreted and the report reviewed and electronically signed by: YAO BUSH MD on Jul 09 2021 3:58PM EST [id number] Normal [facility] 07-01-2021 CNPN Telephone (DDQ) DIANNA XIONG ([id number]) 1955 F Date Time Provider Department 07/01/21 ELLY BLISS DDQ During your visit today, we recorded the following information about you: Linda Vega 07/01/2021 12:16 PM Signed Spoke with patient. She will have covid-19 test done locally 2-3 days prior to surgery. She will schedule at [facility] which is about 20 minutes from her. I will print epic order and send to your via [employer] Allergies As of Date: 07/01/2021 Noted Allergy Reaction CEPHALEXIN MONOHYDRATE 10/13/2013 14 - Other: See Comments Comments: Red all over FUROSEMIDE 04/03/2019 9 - Itching GABAPENTIN 10/13/2013 14 - Other: See Comments Comments: Weakness, Sob GRASS POLLEN 03/05/2018 14 - Other: See Comments HYDROCODONE BITARTRATE 10/13/2013 14 - Other: See Comments Comments: Extreme constipation LATEX 02/08/2018 14 - Other: See Comments Comments: Added based on information entered during case entry, please review and add reactions, type, and severity as needed PENICILLINS 10/13/2013 14 - Other: See Comments Comments: Red all over RAGWEED POLLEN 03/05/2018 14 - Other: See Comments SULFA (SULFONAMIDE ANTIBIOTICS) 10/13/2013 16 - Unknown TOPIRAMATE 10/13/2013 14 - Other: See Comments Comments: Difficulty breathing TRAMADOL 06/21/2019 1 - Mental Status Change CAT JOHN 10/27/2016 7 - Swelling Comments: Swelling of eyes ETODOLAC 10/22/2016 14 - Other: See Comments Comments: Other reaction(s): Intolerance-unknown MOLD 10/22/2016 9 - Itching Date Reviewed: 06/04/2021 Reviewed by: Narcisa Serna Ma - Fully Assessed Reason for Visit: Future Appointment [256] Cmt: patient will have covid-19 test done locally Prescriptions as of 07/01/2021 - warfarin (COUMADIN) 5 mg tablet Take 1 tablet by mouth once daily. - bumetanide (BUMEX) 0.5 mg tablet Take 0.5 mg by mouth once daily as needed. - tiotropium bromide (SPIRIVA RESPIMAT) 1.25 mcg/actuation mist Inhale 1.25 mcg as instructed. - montelukast (SINGULAIR) 10 mg tablet Take 10 mg by mouth daily at bedtime. - propylene glycol (SYSTANE BALANCE) 0.6 % drop Use 1 Drop in the right eye. - SHINGRIX, PF, 50 mcg/0.5 mL injection - omega-3 acid ethyl esters 1 gram capsule Take 2 g by mouth twice daily. - LUTEIN ORAL Take by mouth. - olopatadine (PATANOL) 0.1 % ophthalmic solution 1 Drop as needed. - hydroCHLOROthiazide (HYDRODIURIL, ESIDRIX) 12.5 mg tablet Take 12.5 mg by mouth. - TRIAMCINOLONE ACETONIDE (NASACORT NASAL) Use in the nose. - ESCITALOPRAM OXALATE (LEXAPRO ORAL) Take by mouth. - lansoprazole (PREVACID) 30 mg capsule Take by mouth. - Cholecalciferol, Vitamin D3, (VITAMIN D-3) 2,000 unit cap Take by mouth. Problem List As Of Date 07/01/2021 Noted Resolved Endometrial thickening on ultrasound [R93.89] 01/19/2017 Lumbar spondylosis [M47.816] 02/08/2018 Lumbosacral spondylosis without myelopathy [M47*03/23/2018 Uterine leiomyoma [D25.9] 01/19/2017 Thyroid nodule [E04.1] 03/29/2018 Morbid obesity (HCC) [E66.01] 03/29/2018 DVT (deep venous thrombosis) ([facility]) [I82.409] Obesity, Class III, BMI >= 40 [E66.01] 06/01/2019 Post-operative state [Z98.890] 06/23/2019 Incisional hernia without obstruction or gangre*06/24/2019 06/24/2019 Encounter Status:Closed by LINDA VEGA on 07/01/21 [facility] CNPNon 06-24-2021 CNPN Telephone (GENSMN) DIANNA XIONG ([id number]) 1955 F Date Time Provider Department 06/24/21 JOSE JAMES During your visit today, we recorded the following information about you: Jose James RN 06/24/2021 3:18 PM Signed Date was given that Dr. Bliss will not be in the OR. I have reached out to patient to reschedule the surgery. I had to leave a VM and left my direct contact as well for her to return the call. JESS Rivas RN 06/24/2021 4:14 PM Signed Patient returned my call and has accepted a new surgery date of July 19, and preops for 07/09. I will update the cure form as well. Allergies As of Date: 06/24/2021 Noted Allergy Reaction CEPHALEXIN MONOHYDRATE 10/13/2013 14 - Other: See Comments Comments: Red all over FUROSEMIDE 04/03/2019 9 - Itching GABAPENTIN 10/13/2013 14 - Other: See Comments Comments: Weakness, Sob GRASS POLLEN 03/05/2018 14 - Other: See Comments HYDROCODONE BITARTRATE 10/13/2013 14 - Other: See Comments Comments: Extreme constipation LATEX 02/08/2018 14 - Other: See Comments Comments: Added based on information entered during case entry, please review and add reactions, type, and severity as needed PENICILLINS 10/13/2013 14 - Other: See Comments Comments: Red all over RAGWEED POLLEN 03/05/2018 14 - Other: See Comments SULFA (SULFONAMIDE ANTIBIOTICS) 10/13/2013 16 - Unknown TOPIRAMATE 10/13/2013 14 - Other: See Comments Comments: Difficulty breathing TRAMADOL 06/21/2019 1 - Mental Status Change DARREN LOPEZ 10/27/2016 7 - Swelling Comments: Swelling of eyes ETODOLAC 10/22/2016 14 - Other: See Comments Comments: Other reaction(s): Intolerance-unknown MOLD 10/22/2016 9 - Itching Date Reviewed: 06/04/2021 Reviewed by: Narcisa Serna Ma - Fully Assessed Reason for Visit: new surgery date [Other] Prescriptions as of 06/24/2021 - warfarin (COUMADIN) 5 mg tablet Take 1 tablet by mouth once daily. - bumetanide (BUMEX) 0.5 mg tablet Take 0.5 mg by mouth once daily as needed. - tiotropium bromide (SPIRIVA RESPIMAT) 1.25 mcg/actuation mist Inhale 1.25 mcg as instructed. - montelukast (SINGULAIR) 10 mg tablet Take 10 mg by mouth daily at bedtime. - propylene glycol (SYSTANE BALANCE) 0.6 % drop Use 1 Drop in the right eye. - SHINGRIX, PF, 50 mcg/0.5 mL injection - omega-3 acid ethyl esters 1 gram capsule Take 2 g by mouth twice daily. - LUTEIN ORAL Take by mouth. - olopatadine (PATANOL) 0.1 % ophthalmic solution 1 Drop as needed. - hydroCHLOROthiazide (HYDRODIURIL, ESIDRIX) 12.5 mg tablet Take 12.5 mg by mouth. - TRIAMCINOLONE ACETONIDE (NASACORT NASAL) Use in the nose. - ESCITALOPRAM OXALATE (LEXAPRO ORAL) Take by mouth. - lansoprazole (PREVACID) 30 mg capsule Take by mouth. - Cholecalciferol, Vitamin D3, (VITAMIN D-3) 2,000 unit cap Take by mouth. Problem List As Of Date 06/24/2021 Noted Resolved Endometrial thickening on ultrasound [R93.89] 01/19/2017 Lumbar spondylosis [M47.816] 02/08/2018 Lumbosacral spondylosis without myelopathy [M47*03/23/2018 Uterine leiomyoma [D25.9] 01/19/2017 Thyroid nodule [E04.1] 03/29/2018 Morbid obesity (HCC) [E66.01] 03/29/2018 DVT (deep venous thrombosis) ([facility]) [I82.409] Obesity, Class III, BMI >= 40 [E66.01] 06/01/2019 Post-operative state [Z98.890] 06/23/2019 Incisional hernia without obstruction or gangre*06/24/2019 06/24/2019 Encounter Status:Closed by JOSE JAMES on 06/24/21 [facility] CNPNon 06-06-2021 CNPN Telephone (ANGIE) DIANNA XIONG ([id number]) 1955 F Date Time Provider Department 06/06/21 ELLY BLISS During your visit today, we recorded the following information about you: Richard Russell [facility] [place] 06/06/2021 2:18 PM Signed Patient has questions regarding her surgery, insurance and 12/01 after care when she is discharged from the hospital. She would like to speak to Dr. Bliss again or her nurse to discuss. Allergies As of Date: 06/06/2021 Noted Allergy Reaction CEPHALEXIN MONOHYDRATE 10/13/2013 14 - Other: See Comments Comments: Red all over FUROSEMIDE 04/03/2019 9 - Itching GABAPENTIN 10/13/2013 14 - Other: See Comments Comments: Weakness, Sob GRASS POLLEN 03/05/2018 14 - Other: See Comments HYDROCODONE BITARTRATE 10/13/2013 14 - Other: See Comments Comments: Extreme constipation LATEX 02/08/2018 14 - Other: See Comments Comments: Added based on information entered during case entry, please review and add reactions, type, and severity as needed PENICILLINS 10/13/2013 14 - Other: See Comments Comments: Red all over RAGWEED POLLEN 03/05/2018 14 - Other: See Comments SULFA (SULFONAMIDE ANTIBIOTICS) 10/13/2013 16 - Unknown TOPIRAMATE 10/13/2013 14 - Other: See Comments Comments: Difficulty breathing TRAMADOL 06/21/2019 1 - Mental Status Change DARREN ESTESDER 10/27/2016 7 - Swelling Comments: Swelling of eyes ETODOLAC 10/22/2016 14 - Other: See Comments Comments: Other reaction(s): Intolerance-unknown MOLD 10/22/2016 9 - Itching Date Reviewed: 06/04/2021 Reviewed by: Narcisa Serna Ma - Fully Assessed Reason for Visit: Patient Question [9450] Cmt: regarding surgery and after care Prescriptions as of 06/28/2021 - warfarin (COUMADIN) 5 mg tablet Take 1 tablet by mouth once daily. - bumetanide (BUMEX) 0.5 mg tablet Take 0.5 mg by mouth once daily as needed. - tiotropium bromide (SPIRIVA RESPIMAT) 1.25 mcg/actuation mist Inhale 1.25 mcg as instructed. - montelukast (SINGULAIR) 10 mg tablet Take 10 mg by mouth daily at bedtime. - propylene glycol (SYSTANE BALANCE) 0.6 % drop Use 1 Drop in the right eye. - SHINGRIX, PF, 50 mcg/0.5 mL injection - omega-3 acid ethyl esters 1 gram capsule Take 2 g by mouth twice daily. - LUTEIN ORAL Take by mouth. - olopatadine (PATANOL) 0.1 % ophthalmic solution 1 Drop as needed. - hydroCHLOROthiazide (HYDRODIURIL, ESIDRIX) 12.5 mg tablet Take 12.5 mg by mouth. - TRIAMCINOLONE ACETONIDE (NASACORT NASAL) Use in the nose. - ESCITALOPRAM OXALATE (LEXAPRO ORAL) Take by mouth. - lansoprazole (PREVACID) 30 mg capsule Take by mouth. - Cholecalciferol, Vitamin D3, (VITAMIN D-3) 2,000 unit cap Take by mouth. Problem List As Of Date 06/06/2021 Noted Resolved Endometrial thickening on ultrasound [R93.89] 01/19/2017 Lumbar spondylosis [M47.816] 02/08/2018 Lumbosacral spondylosis without myelopathy [M47*03/23/2018 Uterine leiomyoma [D25.9] 01/19/2017 Thyroid nodule [E04.1] 03/29/2018 Morbid obesity (HCC) [E66.01] 03/29/2018 DVT (deep venous thrombosis) ([facility]) [I82.409] Obesity, Class III, BMI >= 40 [E66.01] 06/01/2019 Post-operative state [Z98.890] 06/23/2019 Incisional hernia without obstruction or gangre*06/24/2019 06/24/2019 Encounter Status:Closed by [facility] on 06/28/21 [facility] CNOVon 06-04-2021 CNOV Office Visit (ANGIE ) DIANNA XIONG ([id number]) 1955 F Date Time Provider Department 06/04/21 1:30 PM ELLY BLISS During your visit today, we recorded the following information about you: Temperature Pulse Blood pressure Weight 98 degrees 102/minute 158/82 148.8 kg Height 1.651 m Narcisa Kareem Alexandre 06/04/2021 1:31 PM Signed What is the reason for your visit today? est Who is your referring physician? Dr. blsis Are you having poor oral intake? NO Have you had unintentional weight loss of 15 lbs/7 Kg in the last 3-6 months? NO Bowels: regular Wound: drainage clear Temperature: No Drains: No Elly Bliss MD 06/04/2021 11:42 PM Signed Dianna Pepe Inga is a 66 year old woman s/p emergent laparoscopic repair of an incarcerated umbilical hernia on 06/23/2019. She presents today with erythema and drainage from the umbilicus and a recurrent umbilical hernia. She started noticing erythema and a foul smelling discharge in the beginning of March. She was put on Cipro and then on levofloxacin without much improvement. Also used Flagyl without improvement. Currently on mupirocin. Not draining now. Her bmi is 54.6. She has local tenderness, but no deep pain. Stress test showed possible anterior ischemia with extensive soft tissue artifacts. She also had an echocardiogram performed which showed normal LV systolic function. She complains of exertional shortness of breath she denies chest pain. She has gained 40-50 lb weight in the last 1 year. She has prior history of pulmonary embolism and has been on warfarin long-term. Past Medical History: Diagnosis Date - Angina pectoris ([facility] 2006 CARDIAC CATH, states no blockages - Anxiety - Arthritis - Asthma - Back pain - Benign thyroid cyst - Breast disorder 1981 left, benign lumpectomy - Chronic constipation - Chronic cough improved with spiriva inhaler - Constipation - Deep vein thrombosis ([facility] 2006, 2013 - Depression - Fractures foot - GERD (gastroesophageal reflux disease) - H/O: rheumatic fever as a child - Heart disease - Herniated intervertebral disc of lumbar spine - Hyperlipidemia - Hypertension - Injury of back bulging disc, pinched nerve and bone spur. - Low back pain - Morbid obesity ([facility]) - Obesity - Obstructive sleep apnea - Palpitations - PE (pulmonary thromboembolism) ([facility]) 2007, 2013 Past Surgical History: Procedure Laterality Date - Bilateral Lumbar L4/5, L5/S1 medial branch block 1 of 2 Bilateral 02/19/2018 Performed by Leif Holman MD at [facility] - Bilateral lumbar L4/5, L5/S1 medial branch block 2 of 2 Bilateral 03/05/2018 Performed by Leif Holman MD at [facility] - BREAST BIOPSY Left 1981 BENIGN-EXCISIONAL - BREAST SURGERY Left 1982 lumpectomy - CARDIAC CATHETERIZATION 2006 [facility] - CARPAL TUNNEL RELEASE Bilateral 1987 - CHOLECYSTECTOMY - COLONOSCOPY - D AND C HYSTEROSCOPY N/A 07/30/2017 Performed by Savage Wong MD at [facility] - DILATION AND CURETTAGE OF UTERUS - EXAM UNDER ANESTHESIA, SPHINCTEROTOMY N/A 10/31/2016 Performed by Manny Villareal MD at [facility] - INJECTION CAUDAL EPIDURAL WITH CATHETER, STEROID N/A 02/11/2019 Performed by Leif Holman MD at [facility] - INJECTION CAUDAL EPIDURAL WITH CATHETER, STEROID N/A 11/22/2018 Performed by Leif Holman MD at [facility] - INJECTION SACROILIAC NERVE Bilateral 08/02/2018 Performed by Leif Holman MD at [facility] - INJECTION SACROILIAC NERVE Bilateral 05/28/2018 Performed by Leif Holman MD at [facility] - KNEE SURGERY Right 2014 replacement - LEFT L4/5, 5/1 RADIOFREQUENCY ABLATION Left 04/19/2018 Performed by Leif Holman MD at [facility] - RADIO FREQUENCY ABLATION: left SI Left 09/27/2018 Performed by Leif Holman MD at [facility] - RADIO FREQUENCY ABLATION: rightSI Right 09/13/2018 Performed by Leif Holman MD at [facility] - RIGHT L4/5, 5/1 RADIOFREQUENCY ABLATION Right 04/05/2018 Performed by Leif Holman MD at [facility] - SHOULDER SURGERY 1997 - TONSILLECTOMY - US GUIDED BIOPSY THYROID FINE NEEDLE benign cyst Laparoscopic repair of incarcerated umbilical hernia 06/23/2019 CT angio EXTRACARDIAC FINDINGS: There is a 2 mm right middle lobe pulmonary nodule. ?There is?a left lower lobe pulmonary nodule measuring 7 mm. ?This has increased in size from 2017. ?Minimal scarring in the lung parenchyma. ?No effusions. ?Fatty infiltration of the liver parenchyma. ?Atherosclerotic calcifications in the aorta. ?Pulmonary arteries are of normal caliber. ?No enlarged lymph nodes. ?Degenerative changes of the thoracic spine with age-indeterminate wedge compression deformities. EXTRACARDIAC IMPRESSION: 1. Pulmonary nodules as detailed above with enlarging lef (more content not included)... [facility] HISTORY PHYSICALon HISTORY PHYSICAL HNO ID: [id number] Author: Addis Dumont MD Service: ? Author Type: Resident Type: HANDP Filed: 06/04/2021 11:42 PM Note Text: [facility] - HISTORY AND PHYSICAL Chief Complaint: Recurrent ventral hernia with incarceration HPI:Patient is a 66-year-old female who came to the clinic with a past history of laparoscopic IPOM done on 06/23/2023 ventral hernia. She was seen last by Dr. Bliss on 12/28/2019 for a recurrence of repair mentioned above. The patient endorses that she was doing some heavy lifting at the time and started getting nausea and abdominal pain. She then felt a bulge again at the umbilicus CT scanning at the time showed release of tacks from the anterior abdominal wall through which small bowel was seen to herniate. plan was made to see the patient after some weight loss for second repair. Patient came to clinic today with a complaint of pain and progressive increase in the size of ventral hernia since the last time she was here. She also complains that there was foul-smelling discharge from around the umbilicus. This started towards the end of February when she noticed that the skin overlying the bulge has become red. she went to ED for pain abdomen where a CT scan was done which showed large umbilical hernia containing small bowel without evidence of obstruction or strangulation. She was discharged with antibiotics topical ointments and to follow-up with Dr. Bliss. Past history of knee surgery, DVT and PE(currently on Coumadin) Relevant previous operations include: Laparoscopic IPOM done in 06/23/2019. Knee surgery No history of Psychiatric Disorders or Opioid Use Independent No employment None Hypertension N/A PAST MEDICAL HISTORY Diagnosis Date - Arthritis - Depression - DVT (deep venous thrombosis) (HCC) - Heart disease - Lung disease - GWENDOLYN (obstructive sleep apnea) - PE (pulmonary embolism) - Peptic ulcer disease - Rheumatoid arthritis (HCC) PAST SURGICAL HISTORY Procedure Laterality Date - CARPAL TUNNEL 1981 - CHOLECYSTECTOMY HX 1999 - PAST SURGICAL HISTORY OF 1996 right shoulder surgery - PAST SURGICAL HISTORY OF 2006 left knee scope - PAST SURGICAL HISTORY OF 2002 arthroscopy knee - TONSILLECTOMY HX 1960 Social History Tobacco Use - Smoking status: Never Smoker - Smokeless tobacco: Never Used Substance Use Topics - Alcohol use: No - Drug use: Not on file Additional social history not relevant to the patient's HPI No family history on file. Additional family history not relevant to the patient's HPI ALLERGIES Allergen Reactions - Cephalexin Monohydr* Other: See Comments Red all over - Furosemide Itching - Gabapentin Other: See Comments Weakness, Sob - Grass Pollen Other: See Comments - Hydrocodone Bitartr* Other: See Comments Extreme constipation - Latex Other: See Comments Added based on information entered during case entry, please review and add reactions, type, and severity as needed - Penicillins Other: See Comments Red all over - Ragweed Pollen Other: See Comments - Sulfa (Sulfonamide * Unknown - Topiramate Other: See Comments Difficulty breathing - Tramadol Mental Status Change - Cat Dander Swelling Swelling of eyes - Etodolac Other: See Comments Other reaction(s): Intolerance-unknown - Mold Itching Current Outpatient Medications Medication Sig Dispense Refill - doxycycline hyclate (VIBRAMYCIN) 100 mg capsule Take 1 capsule by mouth twice daily for 14 days. 28 capsule 0 - warfarin (COUMADIN) 5 mg tablet Take 1 tablet by mouth once daily. 30 tablet 0 - bumetanide (BUMEX) 0.5 mg tablet Take 0.5 mg by mouth once daily as needed. 0 - tiotropium bromide (SPIRIVA RESPIMAT) 1.25 mcg/actuation mist Inhale 1.25 mcg as instructed. - montelukast (SINGULAIR) 10 mg tablet Take 10 mg by mouth daily at bedtime. - propylene glycol (SYSTANE BALANCE) 0.6 % drop Use 1 Drop in the right eye. - SHINGRIX, PF, 50 mcg/0.5 mL injection - omega-3 acid ethyl esters 1 gram capsule Take 2 g by mouth twice daily. - LUTEIN ORAL Take by mouth. - olopatadine (PATANOL) 0.1 % ophthalmic solution 1 Drop as needed. - hydroCHLOROthiazide (HYDRODIURIL, ESIDRIX) 12.5 mg tablet Take 12.5 mg by mouth. - TRIAMCINOLONE ACETONIDE (NASACORT NASAL) Use in the nose. - ESCITALOPRAM OXALATE (LEXAPRO ORAL) Take by mouth. - lansoprazole (PREVACID) 30 mg capsule Take by mouth. - Cholecalciferol, Vitamin D3, (VITAMIN D-3) 2,000 unit cap Take by mouth. No current facility-administered medications for this visit. REVIEW OF SYSTEMS GENERAL: No weight loss, malaise or fevers. HEENT: Negative for frequent or significant headaches, No changes in hearing or vision, no nose bleeds or other nasal problems NECK: Negative for goiter, pain or significant neck swelling RESPIRATORY: Negative for cough, hemoptysis, wheezing, COPD, dyspnea or shortness of breat (more content not included)... [facility] HOSP 06-04-2021 HOSP Patient:Keily Xiong MRN: Height:5' 5 (1.651 m) Weight:326 lb (147.873 kg) Outpatient Medications as of 07/19/21: enoxaparin (LOVENOX) 30 mg/0.3 mL injection ALBUTEROL INHALATION warfarin (COUMADIN) 5 mg tablet bumetanide (BUMEX) 0.5 mg tablet tiotropium bromide (SPIRIVA RESPIMAT) 1.25 mcg/actuation mist montelukast (SINGULAIR) 10 mg tablet propylene glycol (SYSTANE BALANCE) 0.6 % drop SHINGRIX, PF, 50 mcg/0.5 mL injection omega-3 acid ethyl esters 1 gram capsule LUTEIN ORAL olopatadine (PATANOL) 0.1 % ophthalmic solution hydroCHLOROthiazide (HYDRODIURIL, ESIDRIX) 12.5 mg tablet TRIAMCINOLONE ACETONIDE (NASACORT NASAL) ESCITALOPRAM OXALATE (LEXAPRO ORAL) lansoprazole (PREVACID) 30 mg capsule Cholecalciferol, Vitamin D3, (VITAMIN D-3) 2,000 unit cap Admission/Clinic Administered Medications as of 07/19/21: lactated ringers iv infusion heparin 5,000 Units injection clindamycin iv piggyback 900 mg in D5W 50 mL (CLEOCIN) Problem List: Endometrial thickening on ultrasound [R93.89] Lumbar spondylosis [M47.816] Lumbosacral spondylosis without myelopathy [M47.817] Uterine leiomyoma [D25.9] Thyroid nodule [E04.1] Morbid obesity (HCC) [E66.01] DVT (deep venous thrombosis) ([facility]) [I82.409] Obesity, Class III, BMI >= 40 [E66.01] Post-operative state [Z98.890] HTN (hypertension) [I10] GERD (gastroesophageal reflux disease) [K21.9] GWENDOLYN (obstructive sleep apnea) [G47.33] Abnormal stress test [R94.39] Asthma [J45.909] Infected hernioplasty mesh ([facility]) [T85.79XA] Allergies: Cephalexin Monohydrate Furosemide Gabapentin Grass Pollen Hydrocodone Bitartrate Latex Penicillins Ragweed Pollen Sulfa (Sulfonamide Antibiotics) Topiramate Tramadol Cat Dander Etodolac Mold Date Verified: 07/19/21 Lab Values Lab Value Units Date High Low POTA* 4.1 mmol/L 07/09/2021 5.1 3.7 ROSALINDA* 49.4 % 07/09/2021 46.0 36.0 Progress Notes (PRE [facility]): Abena Rosenberg RN 07/10/2021 10:35 AM Signed Per 07/10 HUYEN from Karime Feliciano: I evaluated this patient yesterday in [facility]. I ordered urine tests because she had dysuria- she did not have these done yesterday. Can you call her and see if she can get these done CHELSEA? She can have them done at an outside facility if needed. I also requested pulmonary records for her- if you could call and make sure they received the request, the doctor is Dr. Varinder Pool, phone number [phone]. Lastly, I requested anticoagulation clearance from PCP Dr. Pace, if you could call her office as well. ---- DOS 07/19 S/W patient. She is asking if she can have her urine tests @ Dr Pace's office. I spoke with Kendra @ Dr. Pace's office [phone] and fax [phone]. - they did receive AC clearance letter - not yet completed. They will send back via fax when done. - they will contact patient directly to schedule the urine tests chelsea. Aware the orders were for a urinalysis and urine culture and that patient had dysuria @ [facility] appt yesterday. Patient aware their office will call her directly to schedule. S/W Laverne at Dr. Varinder Pool's office @ [phone]. . They did receive request for pulmonary records and will send them to [facility] as directed. Karime NOE. Please fax the urine testing orders to Dr. Pace's office. Thank you. Abena Joya 07/10/2021 11:07 AM Signed Last recent Pulmonary office note and PFT report has been scanned in. Abena Rosenberg RN 07/10/2021 11:34 AM Signed Spoke with Yasmin at Dr. Huynh's office. They will run patient's urine tests and fax results to [facility]. The AC letter that went to Dr. Huynh is now to to to [facility]. They manage patient's warfarin. (I spoke with Richard) ( ) Karime or Ehsan - please fax anticoagulation letter to above fax #. Thank you. Abena Joya 07/12/2021 11:10 AM Signed Outside Urine labs have been scanned in. Progress Notes ([facility]): Narcisa Serna Ma 07/09/2021 12:52 PM Signed Intake information documented in the prior visit with lab today. Elly Bliss MD 07/09/2021 2:45 PM Signed STAFF NOTE: Patient seen and personally examined with resident. Findings personally reviewed and confirmed including history,ROS, PMHx, PSHx, Fam Hx, Soc Hx and Physical exam except as otherwise noted below. Dianna Xiong is a 66 year old woman with a recurrent umbilical hernia who is scheduled . She has a BMI of 54.6. She had a repair of an incarcerated umbilical hernia on 06/23/19, but began noticing erythema, a recurrent bulge and a foul smelling discharge in March 2021. The symptoms raise concern for mesh erosion into bowel and a possible enterocutaneous fistula. I plan to remove her mesh, examine the intestine, and if necessary resection a portion, and then repair her hernia th (more content not included)... [facility] Vital Signs Date Time Vital Sign Value Performing Clinician Facility 04-28-2024 11:16-0500 Body mass index (BMI) [Ratio] 60.31 kg/m2 Gauri Pump STAMP ANALYST Work Phone: [facility] 04-28-2024 11:16-0500 Body weight 158.12 kg Gauri Pump STAMP ANALYST Work Phone: [facility] 04-28-2024 11:16-0500 Diastolic blood pressure 90 mm[Hg] Gauri Pump STAMP ANALYST Work Phone: [facility] 04-28-2024 11:16-0500 Heart rate 73 /min Gauri Pump STAMP ANALYST Work Phone: [facility] 04-28-2024 11:16-0500 SaO2% (BldA) [Mass fraction] 94 % Gauri Pump STAMP ANALYST Work Phone: [facility] 04-28-2024 11:16-0500 Systolic blood pressure 140 mm[Hg] Gauri Pump STAMP ANALYST Work Phone: [facility] 04-28-2024 10:06-0500 Diastolic blood pressure 99 mm[Hg] Sesar Siddiqui PA Work Phone: [facility] 04-28-2024 10:06-0500 Heart rate 74 /min Sesar Siddiqui PA Work Phone: [facility] 04-28-2024 10:06-0500 Respiratory rate 16 /min Sesar Siddiqui PA Work Phone: [facility] 04-28-2024 10:06-0500 SaO2% (BldA) [Mass fraction] 95 % Sesar Siddiqui PA Work Phone: [facility] 04-28-2024 10:06-0500 Systolic blood pressure 150 mm[Hg] Sesar Siddiqui PA Work Phone: [facility] 10-20-2023 13:25-0400 Body height 165.1 cm Diana ROCHA Work Phone: [facility] 10-20-2023 13:25-0400 Body mass index (BMI) [Ratio] 56.75 kg/m2 Diana Benjamin APRN-POST FORM REMOVER Work Phone: [facility] 10-20-2023 13:25-0400 Body weight 154.68 kg Diana Benjamin APRN-POST FORM REMOVER Work Phone: [facility] 10-20-2023 13:25-0400 Diastolic blood pressure 76 mm[Hg] Diana Benjamin APRN-POST FORM REMOVER Work Phone: [facility] 10-20-2023 13:25-0400 Heart rate 94 /min Diana Benjamin APRN-POST FORM REMOVER Work Phone: [facility] 10-20-2023 13:25-0400 Respiratory rate 22 /min Diana Benjamin APRN-POST FORM REMOVER Work Phone: [facility] 10-20-2023 13:25-0400 Systolic blood pressure 131 mm[Hg] Diana Benjamin APRN-POST FORM REMOVER Work Phone: [facility] 09-01-2023 09:03-0400 Body height 165.1 cm Sesar Siddiqui PA Work Phone: [facility] 09-01-2023 09:03-0400 Body mass index (BMI) [Ratio] 56.58 kg/m2 Sesar Siddiqui PA Work Phone: [facility] 09-01-2023 09:03-0400 Body weight 154.22 kg Sesar Siddiqui PA Work Phone: [facility] 09-01-2023 09:03-0400 Diastolic blood pressure 93 mm[Hg] Sesar Siddiqui PA Work Phone: [facility] 09-01-2023 09:03-0400 Heart rate 90 /min Sesar Siddiqui PA Work Phone: [facility] 09-01-2023 09:03-0400 Respiratory rate 20 /min Sesar [facility]iddiqui PA [facility] 09-01-2023 09:03-0400 SaO2% (BldA) [Mass fraction] 98 % Sesar Siddiqui PA Work Phone: [facility] 09-01-2023 09:03-0400 Systolic blood pressure 133 mm[Hg] Sesar Siddiqui PA Work Phone: [facility] 07-16-2023 09:14-0500 Body height 165.1 cm Sesar Siddiqui PA Work Phone: [facility] 07-16-2023 09:14-0500 Body mass index (BMI) [Ratio] 56.08 kg/m2 Sesar Jackelin PA Work Phone: [employer] 07-16-2023 09:14-0500 Body weight 152.86 kg Sesar Jackelin PA Work Phone: [employer] 07-16-2023 09:14-0500 Diastolic blood pressure 99 mm[Hg] Sesar Kymenberg PA Work Phone: [employer] 07-16-2023 09:14-0500 Heart rate 88 /min Sesar Nienberg PA Work Phone: [employer] 07-16-2023 09:14-0500 Respiratory rate 18 /min Sesar Kymenberg PA Work Phone: [employer] 07-16-2023 09:14-0500 SaO2% (BldA) [Mass fraction] 98 % Sesarprince Siddiqui PA Work Phone: [employer] 07-16-2023 09:14-0500 Systolic blood pressure 154 mm[Hg] Sesar Mejíawilber PA Work Phone: [employer] 05-25-2023 11:45-0500 Body height 165.1 cm Varinder Pool Other [employer] Other 05-25-2023 11:45-0500 Body mass index (BMI) [Ratio] 56.07 kg/m2 Varinder Pool Other [employer] Other 05-25-2023 11:45-0500 Body temperature 97 [degF] Varinder Pool Other [facility] Other 05-25-2023 11:45-0500 Body weight 152.86 kg Varinder Pool Other [facility] Other 05-25-2023 11:45-0500 Diastolic blood pressure 84 mm[Hg] Kamal Chaban Other [facility] Other 05-25-2023 11:45-0500 Respiratory rate 20 /min Varinder Chaban Other [facility] Other 05-25-2023 11:45-0500 SaO2% (BldA) [Mass fraction] 94 % Varinder Carrascoban Other [facility] Other 05-25-2023 11:45-0500 Systolic blood pressure 128 mm[Hg] Varinder Chaban Other [employer] Other 12-09-2022 10:15-0400 Body height 165.1 cm Varinder Carrascoban Other [facility] Other 12-09-2022 10:15-0400 Body mass index (BMI) [Ratio] 55.41 kg/m2 Varinder Carrascoban Other [facility] Other 12-09-2022 10:15-0400 Body temperature 97.5 [degF] Varinder Carrascoban Other [facility] Other 12-09-2022 10:15-0400 Body weight 151.05 kg Varinder Carrascoban Other [facility] Other 12-09-2022 10:15-0400 Diastolic blood pressure 76 mm[Hg] Rhettal Chaban Other [facility] Other 12-09-2022 10:15-0400 Respiratory rate 20 /min Varinder Carrascoban Other [facility] Other 12-09-2022 10:15-0400 SaO2% (BldA) [Mass fraction] 97 % Varinder Pool Other [facility] Other 12-09-2022 10:15-0400 Systolic blood pressure 118 mm[Hg] Varinder Carrascocralos Other [facility] Other 07-24-2022 11:30-0500 Body height 165.1 cm Lg Costa Other [facility] Other 07-24-2022 11:30-0500 Body mass index (BMI) [Ratio] 55.52 kg/m2 Lg Costa Other [facility] Other 07-24-2022 11:30-0500 Body weight 151.37 kg Lg Costa Other [facility] Other 07-24-2022 11:30-0500 Diastolic blood pressure 87 mm[Hg] Lg Costa Other [facility] Other 07-24-2022 11:30-0500 Respiratory rate 20 /min Lg Costa Other [facility] Other 07-24-2022 11:30-0500 SaO2% (BldA) [Mass fraction] 96 % Lg Costa Other [facility] Other 07-24-2022 11:30-0500 Systolic blood pressure 136 mm[Hg] Lg Costa Other [facility] Other 06-26-2022 11:00-0500 Body height 165.1 cm Ciera Noguera Other [facility] Other 06-26-2022 11:00-0500 Body mass index (BMI) [Ratio] 56.37 kg/m2 Ciera Fitt Other [facility] Other 06-26-2022 11:00-0500 Body weight 153.68 kg Ciera Fitt Other [facility] Other 05-22-2022 12:15-0500 Body height 165.1 cm Lg Costa Other [facility] Other 05-22-2022 12:15-0500 Body mass index (BMI) [Ratio] 55.89 kg/m2 Lg Costa Other [facility] Other 05-22-2022 12:15-0500 Body weight 152.36 kg Lg Costa Other [facility] Other 05-22-2022 12:15-0500 Diastolic blood pressure 88 mm[Hg] Lg Costa Other [facility] Other 05-22-2022 12:15-0500 Respiratory rate 20 /min Lg Costa Other [facility] Other 05-22-2022 12:15-0500 SaO2% (BldA) [Mass fraction] 96 % Lg Costa Other [facility] Other 05-22-2022 12:15-0500 Systolic blood pressure 143 mm[Hg] Lg Costa Other [facility] Other 04-30-2022 14:45-0500 Body height 165.1 cm Ciera Fitt Other [facility] Other 04-30-2022 14:45-0500 Body mass index (BMI) [Ratio] 55.57 kg/m2 Varinder Carrascoban Other [facility] Other 04-30-2022 14:45-0500 Body temperature 98.1 [degF] Varinder Carrascoban Other [facility] Other 04-30-2022 14:45-0500 Body weight 151.5 kg Varinder Carrascoban Other [facility] Other 04-30-2022 14:45-0500 Diastolic blood pressure 92 mm[Hg] Varinder Carrascoban Other [facility] Other 04-30-2022 14:45-0500 Respiratory rate 20 /min Varinder Pool Other [facility] Other 04-30-2022 14:45-0500 SaO2% (BldA) [Mass fraction] 95 % Varinder Pool Other [facility] Other 04-30-2022 14:45-0500 Systolic blood pressure 140 mm[Hg] Varinder Carrascoban Other [facility] Other 04-14-2022 16:15-0400 Body height 165.1 cm Tahiraher Alvarezler Other [facility] Other 04-14-2022 16:15-0400 Body mass index (BMI) [Ratio] 55.59 kg/m2 Tahira Missler Other [facility] Other 04-14-2022 16:15-0400 Body weight 151.55 kg Tahira Missler Other [facility] Other 04-14-2022 16:15-0400 Diastolic blood pressure 97 mm[Hg] Tahira Missler Other [facility] Other 04-14-2022 16:15-0400 Respiratory rate 18 /min Tahira Missler Other [facility] Other 04-14-2022 16:15-0400 SaO2% (BldA) [Mass fraction] 95 % Tahira Missler Other [facility] Other 04-14-2022 16:15-0400 Systolic blood pressure 147 mm[Hg] Tahira Missler Other [facility] Other 03-10-2022 10:30-0400 Body height 165.1 cm Tahira Missler Other [facility] Other 03-10-2022 10:30-0400 Body mass index (BMI) [Ratio] 55.56 kg/m2 Tahira Missler Other [facility] Other 03-10-2022 10:30-0400 Body temperature 98.4 [degF] Tahira Missler Other [facility] Other 03-10-2022 10:30-0400 Body weight 151.46 kg Tahira Missler Other [facility] Other 03-10-2022 10:30-0400 Diastolic blood pressure 86 mm[Hg] Tahira Missler Other [facility] Other 03-10-2022 10:30-0400 Respiratory rate 18 /min Tahira Missler Other [facility] Other 03-10-2022 10:30-0400 SaO2% (BldA) [Mass fraction] 95 % Tahira Mendoza Other [facility] Other 03-10-2022 10:30-0400 Systolic blood pressure 132 mm[Hg] Tahira Mendoza Other [facility] Other 01-07-2022 14:57-0400 Body height 165.1 cm Elly Bliss MD Work Phone: [facility] 01-07-2022 14:57-0400 Body temperature 96.6 [degF] Elly Bliss MD Work Phone: [facility] 01-07-2022 14:57-0400 Body weight 149.69 kg Elly Bliss MD Work Phone: [facility] 01-07-2022 14:57-0400 Diastolic blood pressure 100 mm[Hg] Elly Bliss MD Work Phone: [facility] 01-07-2022 14:57-0400 Heart rate 76 /min Elly Bliss MD Work Phone: [facility] 01-07-2022 14:57-0400 Respiratory rate 12 /min Elly Bliss MD Work Phone: [facility] 01-07-2022 14:57-0400 Systolic blood pressure 149 mm[Hg] Elly Bliss MD Work Phone: [facility] 10-29-2021 12:45-0400 Body height 165.1 cm Varinder Pool Other [facility] Other 10-29-2021 12:45-0400 Body mass index (BMI) [Ratio] 54.24 kg/m2 Varinder Pool Other [facility] Other 10-29-2021 12:45-0400 Body temperature 97.4 [degF] Varinder Carrascoban Other [facility] Other 10-29-2021 12:45-0400 Body weight 147.87 kg Varinder Cararscoban Other [facility] Other 10-29-2021 12:45-0400 Diastolic blood pressure 76 mm[Hg] Varinder Pool Other [facility] Other 10-29-2021 12:45-0400 Respiratory rate 20 /min Varinder Pool Other [facility] Other 10-29-2021 12:45-0400 SaO2% (BldA) [Mass fraction] 97 % Varinder Pool Other [facility] Other 10-29-2021 12:45-0400 Systolic blood pressure 114 mm[Hg] Varinder Carrascoban Other [facility] Other 05-15-2021 11:40-0500 Body height 165.1 cm Fadumo Haleymond Other [facility] Other 05-15-2021 11:40-0500 Body mass index (BMI) [Ratio] 55.21 kg/m2 Fadumo Haleymond Other [facility] Other 05-15-2021 11:40-0500 Body temperature 97.8 [degF] Fadumo Haleymond Other [facility] Other 05-15-2021 11:40-0500 Body weight 150.5 kg Fadumo Wendy Other [facility] Other 05-15-2021 11:40-0500 Diastolic blood pressure 83 mm[Hg] Fadumo Nguyen Other [facility] Other 05-15-2021 11:40-0500 Respiratory rate 18 /min Fadumo Nguyen Other [facility] Other 05-15-2021 11:40-0500 SaO2% (BldA) [Mass fraction] 92 % Fadumo Nguyen Other [facility] Other 05-15-2021 11:40-0500 Systolic blood pressure 155 mm[Hg] Fadumo Nguyen Other [facility] Other Encounters Encounter Date Encounter Type Care Provider Facility Start: 05-03-2024 End: 05-03-2024 Telephone encounter Jobst Service Work Phone: [facility] Start: 05-02-2024 End: 05-02-2024 Telephone encounter Jobst Service Work Phone: [facility] Start: 04-28-2024 End: 04-28-2024 ambulatory GAURI L PUMP [facility] Start: 04-28-2024 End: 04-28-2024 Bamboo flowsheet Gauri Pump STAMP ANALYST Work Phone: [facility] Start: 04-28-2024 End: 04-28-2024 Bamboo flowsheet Gauri Pump STAMP ANALYST Work Phone: [facility] Start: 04-28-2024 End: 04-28-2024 Office outpatient visit 25 minutes Gauri Pump STAMP ANALYST Work Phone: [facility] Comment on above: Spondylosis of cervi amy spine (Primary Dx); Chronic pain of both shoulders; Shortness of breath; Chest pain, unspecified type; Flank pain Start: 04-28-2024 End: 04-28-2024 ambulatory GAURI PUMP Not Available Start: 04-28-2024 End: 04-28-2024 Office outpatient visit 25 minutes Sesar Siddiqui PA Work Phone: [facility] Comment on above: Cervical spondylosis without myelopathy (Primary Dx); Cervical disc displacement; Neck pain Start: 04-28-2024 End: 04-28-2024 ambulatory SESAR SIDDIQUI [facility] Start: 04-27-2024 End: 04-27-2024 Telephone encounter Jobst Service Work Phone: [facility] Start: 04-27-2024 End: 04-27-2024 Follow-up encounter [facility] 1 [facility] Comment on above: 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 ([facility]) (Primary Dx); group home (current) use of anticoagulants Start: 04-27-2024 End: 04-27-[address] [facility] Start: 04-12-2024 ambulatory DIANA Cunningham ity:[facility] Start: 03-25-2024 End: 03-25-[address] [facility] Start: 03-24-2024 End: 03-24-2024 Follow-up encounter [facility] Comment on above: 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 (Primary Dx) Start: 03-24-2024 End: 03-24-[address] [facility] Start: 03-12-2024 End: 03-12-2024 ambulatory ERNESTO VIDALES [facility] Start: 03-11-2024 End: 03-11-2024 [address] [facility] Start: 03-10-2024 End: 03-10-[address] [facility] Start: 02-18-2024 End: 02-18-2024 ambulatory SESAR [facility] Start: 02-17-2024 End: 02-21-2024 [facility] Start: 2024 End: 2024 ambulatory GAURI PUMP Not Available Start: 2024 End: 2024 ambulatory GAURI PUMP Not Available Start: 01-29-2024 End: 01-30-2024 ambulatory FABIENNE SOUZA [facility] Start: 01-28-2024 End: 01-28-[address] [facility] Start: 01-22-2024 End: 01-22-[address] [facility] Start: 01-19-2024 End: 01-19-2024 ambulatory MICHELLE Virginie DOHERTY Not Available Start: 01-19-2024 End: 01-19-2024 ambulatory SESAR [facility] Start: 01-11-2024 End: 01-11-2024 ambulatory NONI Alvarado SUNDAR Not Available Start: 01-01-2024 End: 01-01-2024 ambulatory LEIF Mckeon HOLMAN [facility] Start: 12-31-2023 End: 12-31-2023 [facility] Start: 12-04-2023 End: 12-04-2023 ambulatory ABIOLA PACE [facility] Start: 12-03-2023 End: 12-03-2023 ambulatory [facility] Start: 12-01-2023 End: 12-01-[address] [facility] Start: 11-17-2023 End: 11-17-2023 ambulatory ABIOLA PACE Not Available Start: 11-03-2023 End: 11-03-[address] [facility] Start: 10-20-2023 End: 10-20-2023 Office consultation new/estab patient 30 min Diana Benjamin APRN-POST FORM REMOVER Work Phone: General and Gastrointestinal Surgery [facility] Comment on above: Recurrent ventral he rnia (Primary Dx); Morbid obesity with body mass index (BMI) greater than or equal to 50 Start: 10-20-2023 ambulatory DIANA Cunningham ity:[facility] Start: 10-08-2023 End: 10-08-2023 ambulatory SESAR SIDDIQUI [facility] Start: 09-26-2023 End: 09-26-2023 ambulatory EDSON ROWE [facility] Start: 09-25-2023 End: 09-25-2023 ambulatory LEIF HOLMAN [facility] Start: 09-24-2023 End: 09-24-2023 [facility] Comment on above: 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 Start: 09-15-2023 End: 09-21-2023 [facility] Start: 09-01-2023 Telephone encounter Sesar singer [facility] Work Phone: [facility] Start: 09-01-2023 End: 09-01-2023 Office outpatient visit 25 minutes Sesar Lizette Jackelin GARNETT Work Phone: [facility] Comment on above: Spinal stenosis of l umbar region with neurogenic claudication (Primary Dx) Start: 09-01-2023 End: 09-01-2023 [facility] Start: 08-26-2023 End: 08-26-2023 Follow-up encounter [facility] 1 [facility] Comment on above: group home (current) use of anticoagulants (Primary Dx) Start: 08-26-2023 End: 08-26-2023 [facility] Start: 08-14-2023 Telephone encounter Arleen perez [facility] Work Phone: [facility] Start: 08-11-2023 End: 08-11-2023 ambulatory ABIOLA Easley WONDERLY Not Available Start: 07-29-2023 End: 07-29-2023 ambulatory ABIOLA Easley WONDERLY Not Available Start: 07-22-2023 End: 07-22-2023 ambulatory ABIOLA Easley WONDERLY Not Available Start: 07-22-2023 End: 07-22-2023 ambulatory ABIOLA Easley WONDERLY Not Available Start: 07-21-2023 Telephone encounter Katerina Bob ice Work Phone: [facility] Start: 07-16-2023 End: 07-16-2023 Office outpatient visit 15 minutes Sesar GARNETT Work Phone: [facility] Comment on above: Lumbosacral spondylo sis without myelopathy (Primary Dx) Start: 07-16-2023 End: 07-16-2023 [facility] Comment on above: 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 (Primary Dx) Start: 07-16-2023 End: 07-16-2023 [facility] SESAR SIDDIQUI [facility] Start: 07-09-2023 End: 07-09-2023 ambulatory ABIOLA Easley WONDERLY Not Available Start: 07-06-2023 End: 07-06-2023 ambulatory ABIGAIL LOPEZ [facility] Start: 07-03-2023 End: 07-03-2023 [facility] Start: 07-03-2023 End: 07-03-2023 [facility] Start: 07-02-2023 End: 07-02-2023 Follow-up encounter [facility] 1 [facility] Comment on above: 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 Start: 06-25-2023 Telephone encounter Eboni Yen [facility] Start: 06-11-2023 End: 06-22-2023 ambulatory [facility] Start: 06-04-2023 End: 06-22-[address] [facility] Start: 05-25-2023 End: 05-25-2023 ambulatory Kamal Chaban Other [facility] Other Start: 05-25-2023 Office outpatient vi sit 15 minutes Kamal Chaban [facility] Start: 05-11-2023 End: 05-11-2023 ambulatory ABIOLA Easley WONDERLY Not Available Start: 05-08-2023 End: 07-06-2023 ambulatory LEIF Mckeon HOLMAN [facility] Start: 05-05-2023 End: 05-05-2023 ambulatory ABIOLA Easley W[facility] Not Available Start: 03-31-2023 Telephone encounter Leonor lovell RN [facility] Start: 12-09-2022 End: 12-09-2022 ambulatory Kamal Chaban Other [facility] Other Start: 12-09-2022 Office outpatient vi sit 25 minutes Kamal Chaban [facility] Start: 11-11-2022 End: 01-19-2024 Patient encounter procedure Gauri Pump STAMP ANALYST Work Phone: [facility] Start: 10-16-2022 Patient encounter status Pm 1 [facility] Start: 10-10-2022 End: 10-10-[address] ABIOLA Easley WONDERLY Facility:[facility] Start: 08-18-2022 End: 08-18-2022 ambulatory Kamal Chaban Other [facility] Other Start: 08-18-2022 Telephone encounter Kambrandi Chaban [facility] Start: 08-05-2022 End: 08-05-2022 ambulatory Ciera Noguera Other [facility] Other Start: 08-05-2022 Telephone encounter Ciera Noguera [facility] Start: 07-24-2022 Follow-up encounter [facility] Start: 07-24-2022 End: 07-25-2022 ambulatory Tahira R ler [facility] [employer] Other Start: 06-26-2022 [facility] Init ial Provider Ciera Poornima [facility] Start: 06-26-2022 End: 06-26-2022 ambulatory Ciera Noguera Other [employer] Other Start: 05-22-2022 End: 05-22-2022 ambulatory Lg Costa Other [employer] Other Start: 05-22-2022 Follow-up encounter [facility] Start: 04-30-2022 End: 04-30-2022 ambulatory Ciera Noguera Other [employer] Other Start: 04-30-2022 IBT FOR OBESITY GROU P 2-10 30M Ciera Noguera [facility] Start: 04-30-2022 Office outpatient vi sit 15 minutes Kamal Chaban [facility] Start: 04-14-2022 [facility] Weight Management f/u Tahira Mendoza [facility] Start: 04-14-2022 End: 04-14-2022 ambulatory Tahira Mendoza Other [employer] Other Start: 03-10-2022 End: 03-10-2022 ambulatory Tahira Mendoza Other [employer] Other Start: 03-10-2022 Nutrition therapy Tahira Mendoza [facility] Start: 01-07-2022 End: 01-07-2022 Patient encounter procedure Elly Bliss MD Work Phone: General Surgery Comment on above: Body mass index (BMI ) 50.0-59.9, adult (HCC) (Primary Dx); Recurrent ventral hernia; BMI 50.0-59.9, adult (HCC); Essential hypertension; Hx pulmonary embolism Start: 12-30-2021 End: 12-30-2021 ambulatory Varinder Pool Other [employer] Other Start: 12-30-2021 Telephone encounter Varinder Pool [facility] Start: 10-29-2021 End: 10-29-2021 ambulatory Varinder Pool Other [employer] Other Start: 10-29-2021 Office outpatient vi sit 25 minutes Varinder Pool [facility] Start: 05-15-2021 End: 05-15-2021 ambulatory Fadumo Nguyen Other [employer] Other Start: 05-15-2021 Office outpatient vi sit 15 minutes Fadumo Wendy [facility] Procedures Date Procedure Procedure Detail Performing Clinician Start: 04-28-2024 Urnls dip stick/tabl et rgnt non-auto w/o micrscp Gauri Pump STAMP ANALYST Work Phone: Start: 04-27-2024 [employer] Work Phone: Start: 03-24-2024 [employer] Work Phone: Start: 12-31-2023 Follow-up visit Follow-up MOISES TRACY Start: 09-24-2023 [employer] Work Phone: Start: 08-26-2023 [employer] time [employer] Work Phone: Start: 07-22-2023 Mammography Gauri Pump STAMP ANALYST Work Phone: Start: 07-16-2023 [employer]th[employer] Work Phone: Start: 07-02-2023 [employer] time [employer] Work Phone: Start: 07-09-2021 Antibody screen Comment on above: Performed By: #### T [id number] ####[facility] [id number] [place], [place] [phone] Start: 06-23-2019 Adult depression scr eening assessment Elly Bliss MD Work Phone: Start: 04-20-2018 Mammography Elly lakhani MD Work Phone: Start: 10-24-2016 Colonoscopy [facility] 1 Start: 05-10-2015 Colonoscopy Gauri Pump STAMP ANALYST Work Phone: Plan of Treatment Date Care Activity Detail Author Start: 03-24-2033 DTaP,Tdap and Td Vaccines (3 - Td or Tdap) DTaP,Tdap and Td Vaccines (3 - Td or Tdap) [facility] Start: 03-24-2033 Tetanus vaccination TETANUS [facility] Start: 10-24-2026 Screening for malignant neoplasm of colon Colonoscopy [facility] Start: 03-28-2026 LIPID SCREEN LIPID SCREEN [facility] Start: 05-10-2025 Screening for malignant neoplasm of colon [facility] Start: 04-28-2025 Tobacco Screening Tobacco Screening [facility] Start: 03-25-2025 Tobacco Screening Tobacco Screening [facility] Start: 03-11-2025 Tobacco Screening Tobacco Screening [facility] Start: 02-17-2025 Adult BMI Screening Adult BMI Screening [facility] Start: 01-10-2025 End: 01-10-2025 Patient encounter procedure 01/10/2025 9:30 AM EDT Office Visit [facility] [address] [place] [address] Noni Garcia MD [address] [place] [address] [facility] Start: 11-16-2024 Medicare Annual Wellness (AWV) Medicare Annual Wellness (AWV) [facility] Start: 08-31-2024 Adult BMI Screening Adult BMI Screening [facility] Start: 08-31-2024 Tobacco Screening [facility] Start: 07-23-2024 DIABETES SCREEN DIABETES SCREEN [facility] Start: 07-22-2024 Screening for malignant neoplasm of breast Mammogram [facility] Start: 07-16-2024 Adult BMI Screening Adult BMI Screening [facility] Start: 07-16-2024 Tobacco Screening Tobacco Screening [facility] Start: 07-03-2024 Tobacco Screening Tobacco Screening [facility] Start: 06-07-2024 Adult BMI Screening Adult BMI Screening [facility] Start: 06-07-2024 Tobacco Screening Tobacco Screening [facility] Start: 06-06-2024 End: 06-06-2024 ambulatory 06/06/2024 2:00 PM EST Infusion [facility] [address] [place] [address] [facility] Start: 05-12-2024 End: 05-12-2024 Patient encounter procedure 05/12/2024 1:00 PM EST Office Visit [facility] [address] [place] [phone] Sesar Siddiqui, PA [address] [place], [place] [phone] [facility] Start: 05-10-2024 End: 05-10-2024 Follow-up encounter 05/10/2024 1:45 PM EST Follow Up Anticoagulation [facility] [address] [place] [address] [facility] Start: 04-28-2024 End: 04-28-2025 Bacteria identified in Urine by Culture Urine culture Microbiology Routine Flank pain Expected: 04/28/2024 (Approximate), Expires: 04/28/2025 [facility] Comment on above: Expected: 04/28/2024 (Approximate), Expi res: 04/28/2025 Start: 04-28-2024 End: 04-28-2025 ECG 12 lead ECG 12 lead ECG Routine Shortness of breath Chest pain, unspecified type Expected: 04/28/2024 (Approximate), Expires: 04/28/2025 [facility] Work Phone: Comment on above: Expected: 04/28/2024 (Approximate), Expi res: 04/28/2025 Start: 04-28-2024 End: 04-28-2024 Patient encounter procedure 04/28/2024 11:30 AM EST Office Visit [facility] [address] [place] [address] PumpGauri NP [address] [place], [place] [phone] Arrived [facility] Comment on above: Arrived Start: 04-28-2024 End: 04-28-2024 Patient encounter procedure 04/28/2024 9:45 AM EST Office Visit [facility] [address] [place] [phone] Sesar Siddiqui, PA [address] [place], [place] [phone] [facility] Start: 04-20-2024 End: 04-20-2024 Follow-up encounter 04/20/2024 11:00 AM EDT Follow Up Anticoagulation [facility] [address] [place] [place] [address] [facility] Start: 04-12-2024 End: 04-12-2024 Patient encounter procedure 04/12/2024 1:15 PM EDT Office Visit General and Gastrointestinal Surgery [address] [place] [phone] Diana Benjamin, RESIDENTIAL RECYCLE DRIVER-POST FORM REMOVER [address] [place] [address] General and Gastrointestinal Surgery [facility] Start: 03-25-2024 End: 03-25-2024 Admission to same day surgery center 03/25/2024 10:15 AM EDT - 03/25/2024 10:28 AM EDT Surgery [facility] [address] [place] [phone] Leif Holman MD [address] [facility] [place] [address] RADIOFREQUENCY ABLATION PERIPHERAL NERVE Right Cluneal [93437 (CPT )] [facility] Comment on above: RADIOFREQUENCY ABLATION PERIPHERAL NERVE Right Cluneal [84597 (CPT )] Start: 03-25-2024 End: 03-25-2024 Dstrj neurolytic agent other peripheral nerve RADIOFREQUENCY ABLATION PERIPHERAL NERVE Other specified mononeuropathies of bilateral lower limbs 03/25/2024 10:15 AM EDT [facility] Start: 03-25-2024 Subsequent hospital visit by physician 03/25/2024 10:15 AM EDT Hospital Encounter [facility] [address] [place] [phone] Leif Holman MD [address] [place], [place] [phone] [facility] Start: 02-21-2024 COVID-19 Vaccine ( season) COVID-19 Vaccine ( season) [facility] Start: 02-21-2024 Influenza vaccination [facility] Start: 10-08-2023 End: 10-08-2023 Follow-up encounter 10/08/2023 9:30 AM EDT Follow Up Anticoagulation [facility] [address] [place] [address] [facility] Start: 09-25-2023 End: 09-25-2023 Admission to same day surgery center 09/25/2023 9:23 AM EDT - 09/25/2023 9:30 AM EDT Surgery [facility] [address] [place] [address] Leif Holman MD [address] [place] [address] INJECTION BLOCK EPIDURAL CAUDAL STEROID [54777 (CPT )] [facility] Comment on above: INJECTION BLOCK EPIDURAL CAUDAL STEROID [94946 (CPT )] Start: 09-25-2023 End: 09-25-2023 Njx dx/ther sbst intrlmnr lmbr/sac w/img gdn INJECTION BLOCK EPIDURAL CAUDAL STEROID Spinal stenosis of lumbar region with neurogenic claudication 09/25/2023 9:23 AM EDT [facility] Start: 09-25-2023 Subsequent hospital visit by physician 09/25/2023 9:23 AM EDT Hospital Encounter [facility] [address] [place] [phone] Leif Holman MD [address] [place] [address] [facility] Start: 09-25-2023 End: 09-25-2023 Patient encounter procedure 09/25/2023 8:30 AM EDT Appointment [facility] [address] [place] [place] [address] Leif Holman MD [address] [place] [address] [facility] Start: 09-24-2023 End: 09-24-2023 Follow-up encounter 09/24/2023 9:45 AM EDT Follow Up Anticoagulation [facility] [address] [place] [address] [facility] Start: 09-15-2023 End: 09-15-2023 Follow-up encounter 09/15/2023 9:45 AM EDT Follow Up Anticoagulation [facility] [address] [place] [place] [address] [facility] Start: 09-01-2023 End: 09-01-2023 Patient encounter procedure 09/01/2023 9:15 AM EDT Office Visit [facility] [address] [place] [place] [address] Sesar Siddiqui PA [address] [place] [address] [facility] Start: 08-26-2023 End: 08-26-2023 Follow-up encounter 08/26/2023 9:30 AM EST Follow Up Anticoagulation [facility] [address] [place] [address] [facility] Start: 07-16-2023 End: 07-16-2023 Patient encounter procedure 07/16/2023 9:45 AM EST Office Visit [facility] [address] [place] [place] [address] Sesar Siddiqui PA [address] [place] [address] [facility] Start: 07-16-2023 End: 07-16-2023 Follow-up encounter 07/16/2023 9:15 AM EST Follow Up Anticoagulation [facility] [address] [place] [address] [facility] Start: 07-03-2023 End: 07-03-2023 Admission to same day surgery center 07/03/2023 10:00 AM EST - 07/03/2023 10:08 AM EST Surgery [facility] [address] [place] [phone] Leif Holman MD [address] [facility] [phone] INJECTION BLOCK EPIDURAL CAUDAL STEROID [33456 (CPT )] [facility] Comment on above: INJECTION BLOCK EPIDURAL CAUDAL STEROID [98375 (CPT )] Start: 07-03-2023 End: 07-03-2023 Njx dx/ther sbst intrlmnr lmbr/sac w/img gdn INJECTION BLOCK EPIDURAL CAUDAL STEROID Spinal stenosis of lumbar region with neurogenic claudication 07/03/2023 10:00 AM EST [facility] Start: 07-03-2023 Subsequent hospital visit by physician 07/03/2023 10:00 AM EST Hospital Encounter [facility] [address] [place] [phone] Leif Holman MD [address] [place] [address] [facility] Start: 07-03-2023 End: 07-03-2023 Patient encounter procedure 07/03/2023 8:50 AM EST Appointment [facility] [address] [place] [address] Leif Holman MD [address] [facility] [place] [phone] [facility] Start: 02-20-2022 Influenza vaccination INFLUENZA (#1) [facility] Start: 06-22-2021 ADVANCE DIRECTIVE DISCUSSION ADVANCE DIRECTIVE DISCUSSION [facility] Start: 06-23-2020 Adult depression screening assessment DEPRESSION SCREENING [facility] Start: 04-26-2020 Screening for malignant neoplasm of breast MAMMOGRAM SCREENING DISCUSSION [facility] Start: 04-20-2019 Mammography MAMMOGRAM [facility] Start: 2019 BONE DENSITY BONE DENSITY [facility] Start: 2019 Fall Risk Screening Fall Risk Screening [facility] Start: 05-10-2016 Screening for malignant neoplasm of colon COLORECTAL CANCER SCREENING DISCUSSION [facility] Start: 1999 COLOGUARD (FIT-DNA) COLOGUARD (FIT-DNA) [facility] Start: 1999 Colonoscopy COLONOSCOPY [facility] Start: 1999 COLORECTAL CANCER SCREENING COLORECTAL CANCER SCREENING [facility] Start: [address] COLONOGRAPHY [facility] Start: 1999 FECAL OCCULT BLOOD FECAL OCCULT BLOOD [facility] Start: 1999 SIGMOIDOSCOPY SIGMOIDOSCOPY [facility] Start: 1994 Lipid panel LIPID SCREENING [facility] Start: 1975 Screening for malignant neoplasm of cervix CERVICAL CANCER SCREENING DISCUSSION [facility] Start: 1973 Urine microalbumin profile DTAP,TDAP,TD (1 - Tdap) [facility] Start: 02-05-1972 Adult BMI Follow Up Plan Adult BMI Follow Up Plan [facility] Start: 02-05-1972 ANNUAL PCP TEAM CHRONIC DISEASE VISIT ANNUAL PCP TEAM CHRONIC DISEASE VISIT [facility] Start: 02-05-1972 BP CONTROLLED (<130/80) BP CONTROLLED (<130/80) [facility] Start: 02-05-1972 HEPATITIS C SCREENING HEPATITIS C SCREENING [facility] Start: 02-05-1972 SPIROMETRY SPIROMETRY [facility] Start: 1966 Depression Screening Depression Screening [facility] Start: 1954 Hepatitis C screening HEPATITIS C VIRUS SCREENING [facility] Start: 1954 Medicare Annual Wellness Visit Medicare Annual Wellness Visit [facility] Start: 1954 Potassium [Moles/volume] in Serum or Plasma POTASSIUM [facility] Start: 1954 Screening for malignant neoplasm of colon [facility] Start: 1954 Screening for osteoporosis DEXA SCAN DISCUSSION [facility] End: 04-28-2025 MR Cervical spine WO contrast MR cervical spine without contrast Imaging Routine Neck pain 1 Occurrences starting 04/28/2024 until 04/28/2025 [facility] Work Phone: Comment on above: 1 Occurrences starting 04/28/2024 until 04/28/2025 Immunizations Immunization Date Immunization Notes Care Provider Fa cility 08-26-2023 RSV, recombinant, protein subunit RSVpreF, adjuvant reconstitu, 120mcg/0.5mL, PF (Arexvy) Gauri Pump STAMP ANALYST Work Phone: [facility] 03-24-2023 tetanus toxoid, redu thi diphtheria toxoid, and acellular pertussis vaccine, adsorbed Gauri Pump STAMP ANALYST Work Phone: [facility] 03-17-2023 Influenza, High-dose Seasonal, Quadrivalent, Preservative Free Gauri Pump STAMP ANALYST Work Phone: [facility] 03-17-2023 influenza virus vaccine, unspecified formulation [address] 04-01-2022 Influenza, High-dose Seasonal, Quadrivalent, Preservative Free Gauri Pump STAMP ANALYST Work Phone: [facility] 03-26-2022 Moderna SARS-CoV-2 50mcg/0.5mL Booster Gauri Pump STAMP ANALYST Work Phone: [facility] 05-01-2021 COVID-19 Moderna Varinder cummins Other [facility] Other 03-21-2021 Influenza, High-dose Seasonal, Quadrivalent, Preservative Free Gauri Pump STAMP ANALYST Work Phone: [facility] 09-05-2020 COVID-19 Vaccine Moderna - Documentation Purposes Only Fadumo Nguyen Other [facility] Other 08-08-2020 COVID-19 Vaccine Moderna - Documentation Purposes Only Fadumo Nguyen Other [facility] Other 03-16-2020 influenza, high dose seasonal, preservative-free Gauri Pump STAMP ANALYST Work Phone: [facility] 04-11-2019 pneumococcal polysaccharide vaccine, 23 valent Fadumo Wendy Other [facility] 04-11-2019 influenza, high dose seasonal, preservative-free Fadumo Nguyen Other [facility] 03-22-2019 influenza, high dose seasonal, preservative-free Elly Bliss MD Work Phone: [facility] 03-22-2019 pneumococcal polysaccharide vaccine, 23 valcindi Bliss MD Work Phone: [facility] 04-13-2018 influenza, injectabl e, quadrivalent, preservative free Gauri Pump STAMP ANALYST Work Phone: [facility] 03-17-2018 influenza, injectabl e, quadrivalent, contains preservative Elly Bliss MD Work Phone: [facility] 03-04-2018 zoster vaccine recombinant Fadumo Wendy Other [facility] 11-03-2017 zoster vaccine recombinant Fadumo Nguyen Other [facility] 04-13-2017 influenza, injectabl e, quadrivalent, contains preservative Elly Bliss MD Work Phone: [facility] 04-06-2017 influenza, injectabl e, quadrivalent, preservative free Elly Bliss MD Work Phone: [facility] 06-26-2016 pneumococcal conjuga te vaccine, 13 valent Elly Bliss MD Work Phone: [facility] 04-22-2016 influenza, injectabl e, quadrivalent, preservative free Elly Bliss MD Work Phone: [facility] 03-30-2015 influenza, seasonal, injectable Elly Bliss MD Work Phone: [facility] 03-22-2015 influenza, injectabl e, quadrivalent, preservative free Gauri Pump STAMP ANALYST Work Phone: [facility] 03-22-2014 influenza, injectabl e, quadrivalent, preservative free Gauri Pump STAMP ANALYST Work Phone: [facility] 10-23-2010 pneumococcal polysaccharide vaccine, 23 valent Gauri Pump STAMP ANALYST Work Phone: [facility] 08-27-2010 tetanus toxoid, redu thi diphtheria toxoid, and acellular pertussis vaccine, adsorbed Fadumo Wendy Other [facility] Other Payers Date Payer Category Payer Self-pay 2019 Commercial Managed C are - POS [employer] [id number] 2019 Private Health Insurance [employer] A ETNA MEDICARE SUPPLEMENT [id number] 2019-Present [phone] [address] [address] [place] [address] Indemnity [id number] 2019 Private Health Insurance [id number] 2019 Unknown GENERIC PAYOR ME DICARE SUPPLEMENT [id number] 2019-Present [phone] [address] [address] [place] [address] [id number] [id number] 2017 Medicare MEDICARE MEDICAR E A AND B [id number] 2017-Present [phone] [place] [address] Medicare [id number] [id number] 2017 Medicare [id number] [id number]. [id number] 1959 Medicare [id number] 2.16.840.1.559355.19 1959 Private Health Insurance [facility] [id number] 2.16.840.1.141433.19 1954 Unknown [id number] 2.16.840.1.364036.3.579. 2.593 1954 Unknown [id number] 2..840.1.900980.3.579. 2.594 1954 Unknown [id number] 2.16.840.1.947312.3.579. 2.594 1954 Unknown [id number] 2.16.840.1.130170.3.579. 2.1259 1954 Unknown [id number] 2.16.840.1.463548.3.579. 2.1259 1954 Unknown [id number] 2.16.840.1.926887.3.579. 2.1259 1954 Unknown [id number] 2.16.840.1.418428.3.579. 2.1259 1954 Unknown [id number] 2.16.840.1.544044.3.579. 2.1259 1954 Unknown [id number] 2.16.840.1.734032.3.579. 2.1259 1954 Unknown [id number] 2.16.840.1.295911.3.579. 2.1259 1954 Unknown [id number] 2.16.840.1.385845.3.579. 2.1258 1954 Unknown [id number] 2.16.840.1.837393.3.579. 2.1258 1954 Unknown [id number] 2..840.1.824006.3.579. 2.1258 1954 Unknown [id number] 2..840.1.692816.3.579. 2.1258 1954 Unknown [id number] 2..840.1.472473.3.579. 2.1258 1954 Unknown [id number] 2..840.1.491690.3.579. 2.1258 1954 Unknown [id number] 2.840.1.463872.3.579. 2.1285 1954 Unknown [id number] 2.840.1.524329.3.579. 2.1285 1954 Unknown [id number] 2.840.1.852180.3.579. 2.1285 1954 Unknown [id number] 2.840.1.632672.3.579. 2.1285 1954 Unknown [id number] 840.1.761136.3.579. 2.1285 1954 Unknown [id number] .840.1.821298.3.579. 2.1285 1954 Unknown [id number] .840.1.812427.3.579. 2.1285 1954 Unknown [id number] .840.1.944907.3.579. 2.1285 1954 Unknown [id number] 2.840.1.553711.3.579. 2.1285 1954 Unknown [id number] 2..840.1.886740.3.579. 2.1285 1954 Unknown [id number] 2.840.1.636516.3.579. 2.1285 1954 Unknown [id number] 2..840.1.176838.3.579. 2.1285 1954 Unknown [id number] 2.840.1.104199.3.579. 2.1285 1954 Unknown [id number] 2.840.1.084134.3.579. 2.1285 1954 Unknown [id number] 2.840.1.573507.3.579. 2.1285 1954 Unknown [id number] 2.840.1.335376.3.579. 2.1285 1954 Unknown [id number] 2.840.1.639227.3.579. 2.1285 1954 Unknown [id number] 2.840.1.993124.3.579. 2.1285 1954 Unknown [id number] 2.840.1.445594.3.579. 2.1285 1954 Unknown [id number] 2.840.1.322473.3.579. 2.1285 1954 Unknown [id number] 2.840.1.196039.3.579. 2.1285 1954 Unknown [id number] 2.840.1.462754.3.579. 2.1285 1954 Unknown [id number] 2.840.1.232544.3.579. 2.1285 1954 Unknown [id number] 2.840.1.288284.3.579. 2.1285 1954 Unknown [id number] 2..840.1.885956.3.579. 2.1285 1954 Unknown [id number] 2..840.1.491072.3.579. 2.1285 1954 Unknown [id number] 2..840.1.600400.3.579. 2.1285 1954 Unknown [id number] 2.840.1.350723.3.579. 2.1285 1954 Unknown [id number] 2..840.1.218271.3.579. 2.1285 1954 Unknown [id number] 2.840.1.518064.3.579. 2.1285 1954 Unknown [id number] 2.840.1.642083.3.579. 2.1285 1954 Unknown [id number] 2.840.1.369411.3.579. 2.1285 1954 Unknown [id number] 2.840.1.828182.3.579. 2.1285 1954 Unknown [id number] 2.840.1.362409.3.579. 2.1285 1954 Unknown [id number] 2.840.1.485008.3.579. 2.1285 1954 Unknown [id number] .840.1.934087.3.579. 2.1285 1954 Unknown [id number] .840.1.432785.3.579. 2.1285 1954 Unknown [id number] 2.840.1.210062.3.579. 2.1285 1954 Unknown [id number] 2..840.1.855344.3.579. 2.1285 1954 Unknown [id number] 2.840.1.056522.3.579. 2.1286 1954 Unknown [id number] 2.16.840.1.576365.3.579. 2.128 1954 Unknown [id number] 2.16.840.1.927556.3.579. 2.1286 1954 Unknown [id number] 2.16.840.1.744562.3.579. 2.128 1954 Unknown [id number] 2.16.840.1.544148.3.579. 2.1286 1954 Unknown [id number] 2.16.840.1.004263.3.579. 2.1286 1954 Unknown [id number] 2.16.840.1.899834.3.579. 2.1286 1954 Unknown [id number] 2.16.840.1.855865.3.579. 2.1286 1954 Unknown [id number] 1955 Unknown [id number] Unknown [id number] Unknown Jatinder BC[id number] Social History Date Type Detail Facility Unknown if ever smoked [facility] Start: 08-02-2020 End: 06-07-2023 Sex Assigned At [facility] Start: 10-13-2013 End: 08-14-2022 Tobacco smoking status NHIS Never smoked tobacco [facility] Start: 10-13-2013 End: 08-14-2022 Tobacco use and exposure Smokeless tobacco non-user [facility] Start: 09-17-2021 End: 04-28-2024 Alcohol intake Current non-drinker of alcohol (finding) [facility] Start: 1955 Sex Assigned At Not on file [facility] Start: 12-28-2021 End: 01-07-2022 Exposure to SARS-CoV-2 (event) Not sure [facility] Start: 1955 Sex Assigned At Female F [facility] Start: 08-02-2020 End: 06-07-2023 History of Social function [facility] Housing Instability Unknown [facility] Start: 10-20-2023 End: 04-28-2024 Alcoholic beverage intake Lifetime non-drinker (finding) [facility] Start: 01-25-2015 Sex Female (finding) [facility] How often to you hav e a drink containing alcohol? Never [facility] Do you feel stress - tense, restless, nervous, or anxious, or unable to sleep at night because your mind is troubled all the time - these days [OSQ] To some extent [facility] Start: 11-08-2022 Alcohol Comment Caffeine: occasional ly [facility] NEGATED: Highlighted rowStart: NINF History of tobacco use Passive smoker [facility] Medical Equipment Procedure Code Equipment Code Equipment Origin al Text Equipment Identifier Dates Mesh Surgical Parietene Ds 12cm Round - [id number] Start: 06-23-2019 Mesh Bio-A Synth etic 10x7cm Surgical Reinforcement Hernia Repair - [id number] Start: 07-19-2021 Pen [place] 31G X [address] art: 04-14-2022 Clinical Notes 05-15-2021 to 05-03-2024 Telephone Encounter - Rehana Serrano - 05/03/2024 8:08 AM ESTTelephone Encounter - Sesar Brenner [facility] - 05/03/2024 8:08 AM ESTTelephone Encounter - Rehana Serrano - 05/03/2024 8:08 AM EST Note Date & Type Note Facility 05-03-2024 Miscellaneous Notes Patient called to advise that Dr. Paec's PA, Gauri, prescribed azithromycin for a UTI. Please call to discuss at [phone]. Ok to leave voicemail. Spoke with patient and advised no changes needed due to azithromycin. [facility] Telephone encounter Note Patient called to advise that Dr. Pace's PA, Gauri, prescribed azithromycin for a UTI. Please call to discuss at [phone]. Ok to leave voicemail. [facility] 05-03-2024 Telephone encounter Note Spoke with patient and advised no changes needed due to azithromycin. [employer] Work Phone: 05-02-2024 Miscellaneous Notes Patient called to informed that she was started on Prednisone 10 mg tablets on Sunday 04/29. She is take : 4 tablets for 3 days then 3 tablets for 3 days 2 tablets for 3 days 1 tablets for 3 days, for a total of 12 days. Her next INR is 05/10. Patient can be reached at [phone] to discuss further. Returned call to patient. LM to take 2.5 mg today (05/02) and 2.5 mg (05/05) and maintain appt on 05/10. Patient instructed to call with any concerns. Zeny Alvarado, Justino, [facility] May 02, 2024 10:20 AM documented in this encounter [facility] 05-02-2024 Telephone encounter Note Patient called to informed that she was started on Prednisone 10 mg tablets on Sunday 04/29. She is take : 4 tablets for 3 days then 3 tablets for 3 days 2 tablets for 3 days 1 tablets for 3 days, for a total of 12 days. Her next INR is 05/10. Patient can be reached at [phone] to discuss further. [facility] [employer] [facility] 05-02-2024 Telephone encounter Note Returned call to patient. LM to take 2.5 mg today (05/02) and 2.5 mg (05/05) and maintain appt on 05/10. Patient instructed to call with any concerns. Zeny Alvarado PharmD, [facility] May 02, 2024 10:20 AM [facility] 04-28-2024 History of Presen t illness Narrative Images from the original note were not included. Dianna Xiong is a 69 y.o. female presents with chief complaint of Shoulder Pain (BUE, chest discomfort, sob yesterday) HPI: Shoulder Pain Pertinent negatives include no fever. As above. She was at the pain clinic this morning and had an MRI ordered. She has not scheduled it. She did have an episode yesterday with pain down both shoulders and across her back and across her chest last night. She did get shaky and felt short breath. She follows with cardiology and saw them last in December. She states they said she was clear and needed no further follow ups. She is having strong urine and wants tested for a UTI as her back hurts as well. SUBJECTIVE: MEDICATIONS: Current Outpatient Medications Medication Instructions acetaminophen (Tylenol) 325 MG tablet 2 tablets Orally every 6 hrs prn pain Azelastine HCl 137 MCG/SPRAY solution cholecalciferol (VITAMIN D-3) 50 mcg, Oral, 2 times daily docusate sodium (COLACE) 100 mg, Daily escitalopram (LEXAPRO) 10 mg, Oral, Every morning hydroCHLOROthiazide (HYDRODiuril) 12.5 MG tablet TAKE 1 TABLET ORAL ONCE DAILY 90 DAYS lansoprazole (PREVACID) 30 mg, Oral, Daily latanoprost (Xalatan) 0.005 % ophthalmic solution 1 drop, Nightly montelukast (Singulair) 10 MG tablet Every 24 hours olopatadine (Patanol) 0.1 % ophthalmic solution 1 drop into affected eye Ophthalmic once a day prn omega-3 (fish oil) 1000 MG capsule 1 capsule, Every 24 hours Oral Electrolytes (SUSTAIN PO) Every 24 hours polyethylene glycol, PEG, 3350 (Miralax) 17 g packet Take by mouth tiotropium (Spiriva Respimat) 1.25 MCG/ACT inhaler Every 24 hours triamcinolone (Nasacort Allergy 24HR) 55 MCG/ACT nasal inhaler Every 24 hours warfarin (Coumadin) 5 MG tablet Every 24 hours ALLERGIES: Allergies Allergen Reactions Atorvastatin Other Reaction(s): Unknown Cephalexin Other Reaction(s): red all over, Unknown Codeine Colesevelam Other Reaction(s): myalgias Duloxetine Hcl Other Reaction(s): Unknown Dust Mite Extract Etodolac Other Reaction(s): Unknown Furosemide Itching Other Reaction(s): itching Gabapentin Other Reaction(s): weakness, SOB Grass Pollen(K-O-R-T-Swt Rafael) Other Reaction(s): Other: See Comments Hydrocodone Other Reaction(s): extreme constipation Hydrocodone-Acetaminophen GI intolerance Other Reaction(s): Unknown Hylan G-F 20 Other Reaction(s): reaction Iodine Latex Other Reaction(s): Other: See Comments Added based on information entered during case entry, please review and add reactions, type, and severity as needed Levocetirizine Paroxetine Other Reaction(s): Unknown Penicillin V Other Reaction(s): red all over Ramipril Other Reaction(s): myalgias Ranitidine Hcl Other Reaction(s): headache Short Ragweed Pollen Ext Other Statins Other Sulfamethoxazole Other Reaction(s): Unknown Topiramate Other Reaction(s): difficulty breathing Tramadol Other Reaction(s): hallucinations Cat Hair Extract Swelling Swelling of eyes Molds & Smuts Itching Penicillin G Hives Other reaction(s): Intolerance-unknown Pravastatin Other reaction(s): Joint pain, muscle pain History: Past Medical History: Diagnosis Date Arthritis Asthma ([facility]) BPPV (benign paroxysmal positional vertigo) Degenerative joint disease of ankle and foot Depression ([facility]) Diverticulosis DVT (deep venous thrombosis) ([facility]) hospitalization - 2004, 2009, 2013 GE reflux Glucose intolerance (impaired glucose tolerance) Hypertension (CMS/HCC) GWENDOLYN treated with BiPAP Osteopenia Peptic ulcer disease Rheumatoid arthritis (CMS/HCC) Severe obesity (BMI >= 40) (CMS/HCC) Thyroid nodule ([facility]/HCC) Vitamin D deficiency Past Surgical History: Procedure Laterality Date CARPAL TUNNEL RELEASE CHOLECYSTECTOMY 2000 COLONOSCOPY 05/10/[address] ANGIOGRAM HEART CORONARY 04/03/2021 CT ANGIOGRAM HEART CORONARY 04/03/[address] Wong EPIDURAL BLOCK INJECTION 01/2019 HYSTERECTOMY 07/30/2017 hysterscopy and D&C - Dr. Wong - negative results IR ABLATION NERVE 09/13/2018 KNEE SURGERY 2003 Arthroscopy Knee KNEE SURGERY Left 2007 knee scope LUMBAR EPIDURAL INJECTION 2023 Pain management OTHER SURGICAL HISTORY 06/23/2019 Laproscopic repair of incarcerated ventral hernia OTHER SURGICAL HISTORY 07/19/2021 Laparotomy, bowel resection, hernia repair RECTAL SURGERY 10/31/2016 with skin tag removal - Dr Manny Villareal SHOULDER SURGERY Right 1996 THYROID BIOPSY 04/2018 thyroid nodule biopsy TONSILLECTOMY TOTAL KNEE ARTHROPLASTY Right 11/01/2013 TKA DAP Family History Problem Relation Name Age of Onset Diabetes Mother Cancer Mother Heart disease Father No Known Problems Sister 1 Heart disease Maternal Grandfather Heart disease Paternal Grandfather Heart disease Sibling Melanoma Neg Hx Social History Socioeconomic History Marital status: Unmarried Spouse name: Not on file Number of children: Not on file Years of education: Not on file Highest education level: Not on file Occupational History Not on file Tobacco Use Smoking status: Never Passive exposure: Never Smokeless tobacco: Never Vaping Use Vaping status: Never Used Substance and Sexual Activity Alcohol use: Never Comment: Caffeine: occasionally Drug use: Never Sexual activity: Defer Other Topics Concern Not on file Social History Narrative Not on file Social Drivers of Health Financial Resource Strain: Not on file Food Insecurity: No Food Insecurity (02/18/2024) Received from [employer] [facility] Hunger Screening Within the past 12 months we worried whether our food would run out before we got money to buy more.: Never True Within the past 12 months the food we bought just didn't last and we didn't have money to get more.: Never True Transportation Needs: Not on file Physical Activity: Inactive (11/11/2022) Exercise Vital Sign Days of Exercise per Week: 0 days Minutes of Exercise per Session: 0 min Stress: Stress Concern Present (11/11/2022) [employer] - Occupational Stress Questionnaire Feeling of Stress : To some extent Social Connections: Not on file Intimate Partner Violence: Not on file Housing Stability: Not on file I have reviewed and reconciled the history and medication list with the patient today. REVIEW OF SYMPTOMS: Review of Systems Constitutional: Negative. Negative for fatigue and fever. HENT: Negative. Negative for congestion, ear discharge, ear pain, postnasal drip, rhinorrhea, sinus pressure, sinus pain, sneezing, sore throat and trouble swallowing. Eyes: Negative. Respiratory: Negative for cough, shortness of breath and wheezing. Cardiovascular: Negative. Negative for chest pain, palpitations and leg swelling. Gastrointestinal: Negative. Negative for abdominal distention, abdominal pain, blood in stool, diarrhea and nausea. Genitourinary: Strong urine Musculoskeletal: Positive for arthralgias (bilateral shoulders and arms) and neck pain. Skin: Negative. Negative for rash. Neurological: Negative. Psychiatric/Behavioral: Negative. OBJECTIVE: 08/11/2023 1:35 PM 08/11/2023 2:25 PM 11/17/2023 9:21 AM 01/19/2024 1:25 PM 2024 1:56 PM 2024 2:55 PM 04/28/2024 11:16 AM Vitals BMI 59.93 kg/m2 59.86 kg/m2 60.34 kg/m2 60.31 kg/m2 BSA (m2) 2.66 m2 2.66 m2 2.67 m2 2.67 m2 Systolic 144 120 110 130 140 128 140 Diastolic 86 82 74 82 90 84 90 Heart Rate 100 80 68 68 73 SpO2 94 % Temp 98.4 F Height (in) 5' 3.75 Weight (lb) 346.4 346 348.8 348.6 Visit Report Report Report Report Report Report Report Report Physical Exam Vitals and nursing note reviewed. Constitutional: General: She is not in acute distress. Appearance: Normal appearance. She is normal weight. She is not ill-appearing, toxic-appearing or diaphoretic. HENT: Head: Normocephalic. Nose: Nose normal. Mouth/Throat: Mouth: Mucous membranes are moist. Cardiovascular: Rate and Rhythm: Normal rate and regular rhythm. Pulses: Normal pulses. Heart sounds: Normal heart sounds. No murmur heard. No friction rub. No gallop. Pulmonary: Effort: Pulmonary effort is normal. No respiratory distress. Breath sounds: Normal breath sounds. No wheezing, rhonchi or rales. Abdominal: General: Bowel sounds are normal. Palpations: Abdomen is soft. Tenderness: There is no right CVA tenderness or left CVA tenderness. Musculoskeletal: General: Tenderness (lower posterior neck into shoulders) present. No swelling or deformity. Normal range of motion. Cervical back: Normal range of motion and neck supple. Skin: General: Skin is warm and dry. Capillary Refill: Capillary refill takes less than 2 seconds. Neurological: General: No focal deficit present. Mental Status: She is alert and oriented to person, place, and time. Mental status is at baseline. Motor: No weakness. Gait: Gait normal. Psychiatric: Mood and Affect: Mood normal. Behavior: Behavior normal. Thought Content: Thought content normal. Judgment: Judgment normal. ASSESSMENT AND PLAN: Assessment/Plan Diagnoses and all orders for this visit: Spondylosis of cervical spine Discussed findings and MRI. Discussed calling [facility] and getting it scheduled soon. Will start oral steroid. Patient has had this in the past and has done well. Discussed it can make more hyper and hungry, can elevate sugars, can bother stomach -so take it with food, Do not take Motrin, Aleeve or Advil while on Prednisone. Tylenol is ok to take. - predniSONE (Deltasone) 10 MG tablet; Take 4 tablets (40 mg) by mouth Daily for 3 days, THEN 3 tablets (30 mg) Daily for 3 days, THEN 2 tablets (20 mg) Daily for 3 days, THEN 1 tablet (10 mg) Daily for 3 days. Chronic pain of both shoulders Following with pain clinic. Has order for neck MRI. See above. - predniSONE (Deltasone) 10 MG tablet; Take 4 tablets (40 mg) by mouth Daily for 3 days, THEN 3 tablets (30 mg) Daily for 3 days, THEN 2 tablets (20 mg) Daily for 3 days, THEN 1 tablet (10 mg) Daily for 3 days. Shortness of breath Discussed her shortness of breath last night and chest pain. No further or other episodes. She is unsure if she was just anxious due to the neck and shoulder pain then feeling it come around the front. Will get EKG. To go to the hospital from here to get test. Verbalized understanding. - ECG 12 lead; Future Chest pain, unspecified type No further pain. See above. Discussed when to go to ER with verbalized understanding. - ECG 12 lead; Future Flank pain Discussed her intake of water and her symptoms. No dysuria or cramping. Has some low back pain. Urine dip obtained and will await culture. Increase water intake, get plenty of rest. Advised patient that the urine will be sent out for culture. May need to change the antibiotic based on the culture results. Cranberry juice ok. Avoid bath tubs and hot tubs or use the restroom afterwards, always wipe front to back, avoid fragrance soaps in that area, urinate before and after intercourse if sexually active. Discussed if patient develops any N/V, fever/chills, or symptoms dramatically increase, the patient is to go to the ER. Otherwise follow up at our office if no improvement in one week. - POCT urinalysis dipstick manually resulted - Urine culture; Future Recent Results (from the past 3 hours) POCT urinalysis dipstick manually resulted Collection Time: 04/28/24 11:54 AM Result Value Ref Range Color, UA Yellow Clarity, UA Cloudy Glucose, UA Negative Negative - 2000(110) ++++ mg/dL Bilirubin, UA Negative Negative - 4(70) +++ mg/dL Ketones, UA Negative Negative - 160(16) ++++ mg/dL Spec Grav, UA 1.010 1 - 1.03 Blood, UA Positive Negative - 50 Kendrick/mcL pH, UA 5.0 5 - 9 Protein, UA Negative Negative - 2000(20) ++++ mg/dL Urobilinogen, UA 1.0 0.2 - 12 mg/dL Leukocytes, UA 4+ Negative - 500+++ Ananda/mcL Nitrite, UA Negative Negative - Positive Follow up in 1 - 2 weeks if needed. May need cardiology pending EKG results. Follow up with pain management once MRI is completed. documented in this encounter [facility] 04-28-2024 History of Presen t illness Narrative [facility] [address] [place] [address] Patient: Dianna Xiong Sex: female : 1955 Age: 69 y.o. PCP: Abiola Pace MD 04/28/2024 Dianna Xiong is here for a(n) post procedure follow up 03/11/2024 left then 03/25/2024 right cluneal nerve ablations with 75% relief. She reports severe pain in her cervical spine. So bad it made her nauseous. Date of onset of pain: 2006 , pain has lasted greater than 3 months. Pain scale before treatment: 6/10 Pre-op pain score: 6/10 Percentage of relief after and duration: see above Pain scale after treatment: 08/01 Chief Complaint Patient presents with Back Pain Shoulder Pain HPI: PT/HEP 2006 with no relief 07/03/23 Caudal with 100% for 4 days and 50% now pre-proc pain -03/31 post proc pain 0/10 for 4 days and 4-5/10 through Jul 2023 09/25/2023 caudal epidural steroid injection with 100% relief x 2 days . Pre 8/10 post 0/10 for 2 days. Pain has gradually returned to 5/10 post procedure follow up 01/01/2024 Bilateral Cluneal Nerve Block with 100% relief x 3 hours and 50-60% relief still today. Pre procedure pain 10/10. Post procedure pain 0/10. 01/29/2024 bilateral cluneal nerve block with 85% x 3 hours then 60% that continues. Pre-op pain score: 8/10 Post-op pain score: 2/10 2 hour post-op pain core: 2/10 4 hour post-op pain score: 1/03/11/2024 left then 03/25/2024 right cluneal nerve ablations with 75% relief. Pain scale before treatment: 6/10 Pain scale after treatment: 2/10 Back Pain This is a chronic problem. The current episode started more than 1 year ago (2006). The problem occurs constantly. The problem has been gradually improving (post cluneal RFAs) since onset. The pain is present in the lumbar spine, gluteal and sacro-iliac. The quality of the pain is described as aching and stabbing (intermittent sharp, shooting, burning to ant/post aspect of thighs. pain to bilateral groins as well). The pain radiates to the right thigh and left thigh (R>L). The pain is at a severity of 3/10 (2-3/10). The pain is mild. The pain is Worse during the day. Exacerbated by: walking, stairs, lifting, pushing and pulling, prolonged sitting and standing. Stiffness is present In the morning. Associated symptoms include leg pain (R>L) and weakness (BLE R>L). Pertinent negatives include no abdominal pain, bladder incontinence, bowel incontinence, chest pain, dysuria, numbness or tingling. (Muscle spasms ) Risk factors include obesity and poor posture. She has tried ice (PT/HEP 2006 with no relief. Caudal JUSTIN with sig relief. Muscle relaxers with mild relief. Tramadol no relief. Arthritic rub with moderate relief. SI joint injection with significant relief.: tylenol) for the symptoms. The treatment provided mild relief. Neck Pain This is a chronic problem. The current episode started more than 1 month ago (November 2023). The problem occurs constantly. The problem has been rapidly worsening. The pain is associated with nothing. The pain is present in the midline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 for mesh erosion into bowel and a possible enterocutaneous fistula. I plan to remove her mesh, examine the intestine, and if necessary resection a portion, and then repair her hernia through an open incision. She is scheduled for 07/19/21. She has an abnormal cardiac stress test that showed possible anterior ischemia, but that might be due to her body habitus. Her LV systolic ejection fraction is normal. Coronary CTA did not suggest significant stenosis. She also has a hx of a PE and is on warfarin. HISTORIES No family history on file. PAST MEDICAL HISTORY Diagnosis Date - Arthritis - Depression - DVT (deep venous thrombosis) ([facility]) - Heart disease - Lung disease - GWENDOLYN (obstructive sleep apnea) - PE (pulmonary embolism) - Peptic ulcer disease - Rheumatoid arthritis ([facility]) PAST SURGICAL HISTORY Procedure Laterality Date - CARPAL TUNNEL 1981 - CHOLECYSTECTOMY HX 1999 - PAST SURGICAL HISTORY OF 1996 right shoulder surgery - PAST SURGICAL HISTORY OF 2006 left knee scope - PAST SURGICAL HISTORY OF 2002 arthroscopy knee - TONSILLECTOMY HX 1959 Social History Tobacco Use - Smoking status: Never Smoker - Smokeless tobacco: Never Used Substance Use Topics - Alcohol use: No - Drug use: Not on file Current Outpatient Medications Medication Sig - warfarin (COUMADIN) 5 mg tablet Take 1 tablet by mouth once daily. - bumetanide (BUMEX) 0.5 mg tablet Take 0.5 mg by mouth once daily as needed. - tiotropium bromide (SPIRIVA RESPIMAT) 1.25 mcg/actuation mist Inhale 1.25 mcg as instructed. - montelukast (SINGULAIR) 10 mg tablet Take 10 mg by mouth daily at bedtime. - propylene glycol (SYSTANE BALANCE) 0.6 % drop Use 1 Drop in the right eye. - SHINGRIX, PF, 50 mcg/0.5 mL injection - omega-3 acid ethyl esters 1 gram capsule Take 2 g by mouth twice daily. - LUTEIN ORAL Take by mouth. - olopatadine (PATANOL) 0.1 % ophthalmic solution 1 Drop as needed. - hydroCHLOROthiazide (HYDRODIURIL, ESIDRIX) 12.5 mg tablet Take 12.5 mg by mouth. - TRIAMCINOLONE ACETONIDE (NASACORT NASAL) Use in the nose. - ESCITALOPRAM OXALATE (LEXAPRO ORAL) Take by mouth. - lansoprazole (PREVACID) 30 mg capsule Take by mouth. - Cholecalciferol, Vitamin D3, (VITAMIN D-3) 2,000 unit cap Take by mouth. No current facility-administered medications for this visit. Allergies: Cephalexin Monohydr* Other: See Comments Comment:Red all over Furosemide Itching Gabapentin Other: See Comments Comment:Weakness, Sob Grass Pollen Other: See Comments Hydrocodone Bitartr* Other: See Comments Comment:Extreme constipation Latex Other: See Comments Comment:Added based on information entered during case entry, please review and add reactions, type, and severity as needed Penicillins Other: See Comments Comment:Red all over Ragweed Pollen Other: See Comments Sulfa (Sulfonamide * Unknown Topiramate Other: See Comments Comment:Difficulty breathing Tramadol Mental Status Change Cat Dander Swelling Comment:Swelling of eyes Etodolac Other: See Comments Comment:Other reaction(s): Intolerance-unknown Mold Itching IMP: Recurrent umbilical hernia with infected mesh and possible erosion of mesh into bowel BMI 54 PLAN: laparotomy, removed old mesh, repair recurrent ventral hernia. Elly Bliss [facility]12-14-2021 NoteHNO ID: [id number] Author: Elly Bliss MD Service: ? Author Type: Physician Type: Progress Notes Filed: 06/04/2021 11:42 PM Note Text: Dianna Xiong is a 66 year old woman s/p emergent laparoscopic repair of an incarcerated umbilical hernia on 06/23/2019. She presents today with erythema and drainage from the umbilicus and a recurrent umbilical hernia. She started noticing erythema and a foul smelling discharge in the beginning of March. She was put on Cipro and then on levofloxacin without much improvement. Also used Flagyl without improvement. Currently on mupirocin. Not draining now. Her bmi is 54.6. She has local tenderness, but no deep pain. Stress test showed possible anterior ischemia with extensive soft tissue artifacts. She also had an echocardiogram performed which showed normal LV systolic function. She complains of exertional shortness of breath she denies chest pain. She has gained 40-50 lb weight in the last 1 year. She has prior history of pulmonary embolism and has been on warfarin long-term. Past Medical History: Diagnosis Date - Angina pectoris ([facility]) 2006 CARDIAC CATH, states no blockages - Anxiety - Arthritis - Asthma - Back pain - Benign thyroid cyst - Breast disorder 1982 left, benign lumpectomy - Chronic constipation - Chronic cough improved with spiriva inhaler - Constipation - Deep vein thrombosis ([facility] 2006, 2013 - Depression - Fractures foot - GERD (gastroesophageal reflux disease) - H/O: rheumatic fever as a child - Heart disease - Herniated intervertebral disc of lumbar spine - Hyperlipidemia - Hypertension - Injury of back bulging disc, pinched nerve and bone spur. - Low back pain - Morbid obesity ([facility]) - Obesity - Obstructive sleep apnea - Palpitations - PE (pulmonary thromboembolism) ([facility]) 2007, 2013 Past Surgical History: Procedure Laterality Date - Bilateral Lumbar L4/5, L5/S1 medial branch block 1 of 2 Bilateral 02/19/2018 Performed by Leif Holman MD at [facility] - Bilateral lumbar L4/5, L5/S1 medial branch block 2 of 2 Bilateral 03/05/2018 Performed by Leif Holman MD at [facility] - BREAST BIOPSY Left 1981 BENIGN-EXCISIONAL - BREAST SURGERY Left 1982 lumpectomy - CARDIAC CATHETERIZATION 2006 [facility] - CARPAL TUNNEL RELEASE Bilateral 1987 - CHOLECYSTECTOMY - COLONOSCOPY - D AND C HYSTEROSCOPY N/A 07/30/2017 Performed by Savage Wong MD at [facility] - DILATION AND CURETTAGE OF UTERUS - EXAM UNDER ANESTHESIA, SPHINCTEROTOMY N/A 10/31/2016 Performed by Manny Villareal MD at [facility] - INJECTION CAUDAL EPIDURAL WITH CATHETER, STEROID N/A 02/11/2019 Performed by Leif Holman MD at [facility] - INJECTION CAUDAL EPIDURAL WITH CATHETER, STEROID N/A 11/22/2018 Performed by Leif Holman MD at [facility] - INJECTION SACROILIAC NERVE Bilateral 08/02/2018 Performed by Leif Holman MD at [facility] - INJECTION SACROILIAC NERVE Bilateral 05/28/2018 Performed by Leif Holman MD at [facility] - KNEE SURGERY Right 2013 replacement - LEFT L4/5, 5/ RADIOFREQUENCY ABLATION Left 04/19/2018 Performed by Leif Holman MD at [facility] - RADIO FREQUENCY ABLATION: left SI Left 09/27/2018 Performed by Leif Holman MD at [facility] - RADIO FREQUENCY ABLATION: rightSI Right 09/13/2018 Performed by Leif Holman MD at [facility] - RIGHT L4/5, 5/ RADIOFREQUENCY ABLATION Right 04/05/2018 Performed by Leif Holman MD at [facility] - SHOULDER SURGERY 1997 - TONSILLECTOMY - US GUIDED BIOPSY THYROID FINE NEEDLE benign cyst Laparoscopic repair of incarcerated umbilical hernia 06/23/2019 CT angio EXTRACARDIAC FINDINGS: There is a 2 mm right middle lobe pulmonary nodule. ?There is?a left lower lobe pulmonary nodule measuring 7 mm. ?This has increased in size from 2017. ?Minimal scarring in the lung parenchyma. ?No effusions. ?Fatty infiltration of the liver parenchyma. ?Atherosclerotic calcifications in the aorta. ?Pulmonary arteries are of normal caliber. ?No enlarged lymph nodes. ?Degenerative changes of the thoracic spine with age-indeterminate wedge compression deformities. EXTRACARDIAC IMPRESSION: 1. Pulmonary nodules as detailed above with enlarging left lower lobe?pulmonary nodule measuring 7 mm. ?Follow-up CT chest in 6 months and 18-24 months recommended. Extracardiac findings solely interpreted by Dr. King of the department of Radiology. CORONARY CTA FINDINGS: CORONARY ARTERY CALCIUM SCORE Total calcium score = 43.4. ? Total volume = 32.0. LM = 0. LAD = 4.7. CX = 38.0. RCA = 0.7. FUNCTION: The calculated left ventricular ejection fraction is 72%, left ventricular end-diastolic volume is 165 mL, and left ventricular end-systolic volume is [address] ANGIOGRAM: 04/05/21 The overall q (more content not included)...[facility]11-24-2021 Evaluation note* Encounter Date Diagnosis Assessment Notes Treatment Notes Treatment Clinical Notes Apr, Umbilical hernia without obstruction and without gangrene (ICD-10 - K42.9) Go directly to the ER of your choice for evaluation of your umbilical hernia and worsening symptoms. [facility] Other Evaluation note* Diagnosis Body mass index (BMI) 50.0-59.9, adult (HCC)- Primary Recurrent ventral hernia Incisional hernia without mention of obstruction or gangrene BMI 50.0-59.9, adult (HCC) Body Mass Index 50.0-59.9, adult Essential hypertension Unspecified essential hypertension Hx pulmonary embolism Personal history of pulmonary embolism [facility] InformationNort [employer] Other Evaluation noteNo assessment information [facility] Work Phone: Evaluation note* Diagnosis Spinal stenosis of lumbar region with neurogenic claudication- Primary Chronic septic pulmonary embolism without acute cor pulmonale (CMS-HCC)- Primary group home (current) use of anticoagulants Long-term (current) use of anticoagulants Spinal stenosis of lumbar region with neurogenic claudication [facility] (current) use of anticoagulants- Primary Long-term (current) use of anticoagulants [facility] Diagnosis Lumbosacral spondylosis without myelopathy- Primary [facility] Diagnosis 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 Long-term (current) use of anticoagulants Pulmonary embolism, unspecified chronicity, unspecified pulmonary embolism type, unspecified whether acute cor pulmonale present ([facility] Diagnosis 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- Primary Long-term (current) use of anticoagulants [facility] Diagnosis Spinal stenosis of lumbar region with neurogenic claudication- Primary Spinal stenosis of lumbar region with neurogenic claudication- Primary Spinal stenosis of lumbar region with neurogenic claudication [facility] Diagnosis Spinal stenosis of lumbar region with neurogenic claudication- Primary group home (current) use of anticoagulants- Primary Long-term (current) use of anticoagulants Spinal stenosis of lumbar region with neurogenic claudication [facility] Diagnosis Recurrent ventral hernia- Primary Incisional hernia without mention of obstruction or gangrene Morbid obesity with body mass index (BMI) greater than or equal to 50 [facility] (current) use of anticoagulants- Primary Long-term (current) use of anticoagulants Other specified mononeuropathies of bilateral lower limbs [facility]* Diagnosis Chronic septic pulmonary embolism without acute cor pulmonale (CMS-HCC)- Primary 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 Long-term (current) use of anticoagulants [facility] Diagnosis group home (current) use of anticoagulants Long-term (current) use of anticoagulants Pulmonary embolism, unspecified chronicity, unspecified pulmonary embolism type, unspecified whether acute cor pulmonale present ([facility]) [facility] Diagnosis Cervical spondylosis without myelopathy- Primary Cervical disc displacement Displacement of cervical intervertebral disc without myelopathy Neck pain Cervicalgia [facility]* Diagnosis Spondylosis of cervical spine- Primary Chronic pain of both shoulders Shortness of breath Chest pain, unspecified type Flank pain Abdominal pain, unspecified site [facility] N[facility] - Reported* Type Description Date Medical History pulmonary embolism Medical History seasonal allergies Medical History Esophageal reflux Medical History Hypertension Surgical History Procedure:Carpal tunnel release ;Disease: 1981 Surgical History tonsillectomy 1959 Surgical History carpal tunnel release 1981 Surgical History Procedure:Tonsillectomy;Disease : 1959 Surgical History cholecystectomy 1999 Surgical History Procedure:R shoulder sx;Disease : 1996 Surgical History knee arthroscopy 2004 Surgical History Procedure:Cholecystectomy;Disea se: 1999 Surgical History knee arthroscopy 2006 Surgical History Procedure:Arthroscopy Knee;Dise ase: 2002 Surgical History D&C 2008 Surgical History Procedure:L knee scope;Disease: 2006 Surgical History D&C - Dr. Wong 2013 Surgical History knee replacement 2013 Surgical History R TKA DAP 11/01/2013 Surgical History colonoscopy - Dr. Vazquez 05/10 Surgical History Rectal fissure repai r with skin tag removal - Dr Manny Villareal 10/31/16 Surgical History hysterscopy and D&C - Dr. Wong - negative results 07/30/17 Surgical History thyroid nodule biopsy 04/2018 Surgical History nerve ablation in back 09/13/18 Surgical History Spinal injection 01/2019 Surgical History Laproscopic repair of incarcera jennifer ventral hernia 06/23/2019 Hospitalization History DVT 2003 Hospitalization History DVT, PE 2013 Hospitalization History DVT, PE 2009 [facility] Other History general Narrative - Reported* Type Description Date Medical History pulmonary embolism Medical History seasonal allergies Medical History Esophageal reflux Medical History Hypertension Surgical History Procedure:Carpal tunnel release ;Disease: 1981 Surgical History tonsillectomy 1960 Surgical History carpal tunnel release 1981 Surgical History Procedure:Tonsillectomy;Disease : 1960 Surgical History cholecystectomy 1999 Surgical History Procedure:R shoulder sx;Disease : 1996 Surgical History knee arthroscopy 2004 Surgical History Procedure:Cholecystectomy;Disea se: 1999 Surgical History knee arthroscopy 2006 Surgical History Procedure:Arthroscopy Knee;Dise ase: 2002 Surgical History D&C 2008 Surgical History Procedure:L knee scope;Disease: 2006 Surgical History D&C - Dr. Wong 2013 Surgical History knee replacement 2013 Surgical History R TKA DAP 11/01/2013 Surgical History colonoscopy - Dr. Vazquez 05/10 Surgical History Rectal fissure repai r with skin tag removal - Dr Manny Villareal 10/31/16 Surgical History hysterscopy and D&C - Dr. Wong - negative results 07/30/17 Surgical History thyroid nodule biopsy 04/2018 Surgical History nerve ablation in back 09/13/18 Surgical History Spinal injection 01/2019 Surgical History Laproscopic repair of incarcera jennifer ventral hernia 06/23/2019 Surgical History umbilical hernia repair 2021 Hospitalization History DVT 2003 Hospitalization History DVT, PE 2013 Hospitalization History DVT, PE 2009 [facility] Other Hislbum general Narrative - Reported* Type Description Date Medical History pulmonary embolism Medical History seasonal allergies Medical History Esophageal reflux Medical History Hypertension Medical History HYPERLIPIDEMIA Medical History DEPRESSION Surgical History Procedure:Carpal tunnel release ;Disease: 1982 Surgical History tonsillectomy 1960 Surgical History carpal tunnel release 1981 Surgical History Procedure:Tonsillectomy;Disease : 1960 Surgical History cholecystectomy 1999 Surgical History Procedure:R shoulder sx;Disease : 1996 Surgical History knee arthroscopy 2004 Surgical History Procedure:Cholecystectomy;Disea se: 1999 Surgical History knee arthroscopy 2006 Surgical History Procedure:Arthroscopy Knee;Dise ase: 2002 Surgical History D&C 2008 Surgical History Procedure:L knee scope;Disease: 2006 Surgical History D&C - Dr. Wong 2013 Surgical History knee replacement 2013 Surgical History R TKA DAP 11/01/2013 Surgical History colonoscopy - Dr. Vazquez 05/10 Surgical History Rectal fissure repai r with skin tag removal - Dr Manny Villareal 10/31/16 Surgical History hysterscopy and D&C - Dr. Wong - negative results 07/30/17 Surgical History thyroid nodule biopsy 04/2018 Surgical History nerve ablation in back 09/13/18 Surgical History Spinal injection 01/2019 Surgical History Laproscopic repair of incarcera jennifer ventral hernia 06/23/2019 Surgical History umbilical hernia repair 2021 Hospitalization History DVT 2003 Hospitalization History DVT, PE 2013 Hospitalization History DVT, PE 2009 [facility] Other InstructionsNot on filedocumented in this encounter [facility] filed[facility]ed in [facility] filedocumented in this [facility] filedocumented in this [facility] on filedocumented in this encounter [facility] on filedocumented in this encounter [facility] filedocumented in this [facility] filed[facility] Reason for Referral Specialty Diagnoses / Procedures Referred By Sachin t Referred To Contact Diagnoses Spinal stenosis of lumbar region with neurogenic claudication Procedures Case request operating room: INJECTION BLOCK EPIDURAL CAUDAL STEROID Sesar Siddiqui, MARIOLA [address] [facility] [place] [address] Referral ID Status Reason Start Date Expiration Date V isits Requested Visits Authorized [id number] Pending Review 09/01/2023 08/31/2024 1 1 Specialty Diagnoses / Procedures Referred By Sachin t Referred To Contact Diagnoses Body mass index (BMI) 50.0-59.9, adult (HCC) Procedures CONSULT [facility] OFF[facility]OUTPATIENT [facility] MDM 60-[place] [address] [place] [address] Referral ID Status Reason Start Date Expiration Date Visits Requested Visits Authorized [id number] Authorized PCP Requested Referral 01/07/2022 01/07/2023 1 1 Advance Directives Documents on File Type Date Recorded Patient Audit Spec Expl anation Advance Directive(s) 06/11/2021 3:55 PM Advance Directive(s) 06/16/2019 11:59 AM Advance Directive(s) 06/13/2019 11:47 AM Advance Directive(s) 06/01/2019 1:14 PM Advance Directive(s) 05/10/2019 2:36 PM Summary Purpose Family History No Family History Records FoundNo Family History Records FoundNo Family History Records FoundNo Family History Records FoundNo Family History Records FoundNo Family History Records FoundNo Family History Records Found Additional Source Comments REASON FOR VISIT (unrecogniz ed section and content) Reason Comments Established Patient Reason Comments Back Pain Reason Comments Back Pain Reason Comments Consult Evaluation of abdomi nal hernia Reason Comments Back Pain Shoulder Pain Reason Comments Shoulder Pain BUE, chest discomfor t, sob yesterday Source Comments (unrecognize d section and content) In the event this informatio n is protected by the Federal Confidentiality of Alcohol and Drug Abuse Patient Records regulations: The Federal rules restrict any use of the information to criminally investigate or prosecute any alcohol or drug abuse patient.[facility] Care Teams (unrecognized sec tion and content) Bulk Station Operator Relationship Specialty Start Date End Date Abiola Pace MD [address] [place] [address] PCP - General Family Practice 10/07/13 [facility] [address] [place] [id number] Pulmonary and Critical Care Medicine 07/09/21 Bulk Station Operator Relationship Specialty Start Date End Date Abiola Pace MD [address] [place] [address] PCP - General Family Medicine 09/03/16 Bulk Station Operator Relationship Specialty Start Date End Date Abiola Pace MD [address] [facility] [place] [address] PCP - General Family Medicine 09/03/16 Bulk Station Operator Relationship Specialty Start Date End Date Abiola Pace MD [address] [facility] [place] [address] PCP - General Family Medicine 09/03/16 Bulk Station Operator Relationship Specialty Start Date End Date Abiola Pace MD [address] [facility] [place] [address] PCP - General Family Medicine 09/03/16 Bulk Station Operator Relationship Specialty Start Date End Date Abiola Pace MD [address] [facility] [place] [address] PCP - General Family Medicine 09/03/16 Bulk Station Operator Relationship Specialty Start Date End Date Abiola Pace MD [address] [facility] [place] [address] PCP - General Family Medicine 09/03/16 Bulk Station Operator Relationship Specialty Start Date End Date Abiola Pace MD [address] [facility] [place] [address] PCP - General Family Medicine 09/03/16 Bulk Station Operator Relationship Specialty Start Date End Date Abiola Pace MD [address] [facility] [place] [address] PCP - General Family Medicine 09/03/16 Bulk Station Operator Relationship Specialty Start Date End Date Abiola Pace MD [address] [facility] [place] [address] PCP - General Family Medicine 09/03/16 Bulk Station Operator Relationship Specialty Start Date End Date Abiola Pace MD [address] [place] [address] PCP - General Family Medicine 10/20/23 Bulk Station Operator Relationship Specialty Start Date End Date Abiola Pace MD [address] [place] [address] PCP - General Family Medicine 09/03/16 Bulk Station Operator Relationship Specialty Start Date End Date Abiola Pace MD [address] [place] [address] PCP - General Family Medicine 09/03/16 Bulk Station Operator Relationship Specialty Start Date End Date Abiola Pace MD [address] [place] [address] PCP - General Family Medicine 09/03/16 Bulk Station Operator Relationship Specialty Start Date End Date Abiola Pace MD [address] [place] [address] PCP - ACO Reach 11/13/22 Abiola Pace MD [address] [place] [address] PCP - General Family Medicine 10/28/22 Bulk Station Operator Relationship Specialty Start Date End Date Abiola Pace MD [address] [place] [address] PCP - ACO Reach 11/13/22 Abiola Pace MD [address] [place] [address] PCP - General Family Medicine 10/28/22 INFORMATION SOURCE (unrecogn ized section and content) DATE CREATED AUTHOR 01/12/2022 [facility] DATE CREATED AUTHOR AUTHOR'S ORGANIZ ATION 04/17/2022 [facility] dical Specialist DATE CREATED AUTHOR AUTHOR'S ORGANIZ ATION 10/14/2022 [facility] DATE CREATED AUTHOR AUTHOR'S ORGANIZ ATION 01/21/2023 [facility] DATE CREATED AUTHOR AUTHOR'S ORGANIZ ATION 04/14/2024 [facility] DATE CREATED AUTHOR AUTHOR'S ORGANIZ ATION 04/30/2024 [facility] dical Specialists EPIC DATE CREATED AUTHOR AUTHOR'S ORGANIZ ATION 05/01/2024 [facility] Goals (unrecognized section and content) Goals may be documented in a n alternate section FOR RECORDS PERTAINING TO PATIENTS WHO ARE OR HAVE BEEN ENROLLED IN A CHEMICAL DEPENDENCY/SUBSTANCEABUSE PROGRAM, SOME INFORMATION MAY BE OMITTED. This clinical summary was aggregated from multiple sources. Caution should be exercised in using it in the provision of clinical care. This summary normalizes information from multiple sources, and as a consequence, information in this document may materially change the coding, format and clinical context of patient data. In addition, data may be omitted in some cases. CLINICAL DECISIONS SHOULD BE BASED ON THE PRIMARY CLINICAL RECORDS. [facility] [employer] [facility]. provides no warranty or guarantee of the accuracy or completeness of information in this document.
== END 2024-05-04 08:26 | disposition home or self-care (01) ==
LOC: MRI 08:25
PROVIDERS: PCP Family Medicine; Visit Provider Physician Assistant
DX: M54.2 Cervicalgia (principal)
CPT/HCPCS: 72141